=== PATIENT | male | born 1945 | race Caucasian/White ===

== ENCOUNTER 2018-09-17 20:53 | Observation (INO) | payer OTHER, MEDICARE, SELFPAY ==
[2018-09-17 20:55] VITALS: BP 232/93; PULSE 55; RESP 16; TEMP 36.6; O2SAT 99; BMI 35.4
--- NOTE | 2018-09-17 21:29 | EKG12_ITS ---
Test Reason : Blood Pressure : / mmHG Vent. Rate : 056 BPM Atrial Rate : 056 BPM P-R Int : 218 ms QRS Dur : 098 ms QT Int : 424 ms P-R-T Axes : 028 002 027 degrees QTc Int : 409 ms Sinus bradycardia with 1st degree A-V block Otherwise normal ECG Confirmed by YIMI GOLD ([id number]), editor managing newspaper ISAIAH SUAZO ([id number]) on 09/18/2018 2:30:06 PM Referred By: Zhang Luo Confirmed By:YIMI GOLD
--- NOTE | 2018-09-17 21:40 | RAD_ITS ---
STUDY: X-RAY CHEST REASON FOR EXAM: Male, 73 years old. Hypertension TECHNIQUE: PA and lateral views of the chest. COMPARISON: None. FINDINGS: There is elevation of the right hemidiaphragm. There is minimal right lower lobe atelectasis. There is no demonstrated pleural abnormality. Normal size heart. Normal mediastinum and margarita. Normal visualized pulmonary arteries. Normal visualized aortic arch and descending thoracic aorta. There are diffuse degenerative changes of the visualized thoracic spine. Normal visualized ribs, clavicles, and shoulders. There is no demonstrated abnormality of the visualized soft tissue structures of the upper abdomen. RAD/Chest PA and Lateral IMPRESSION: Elevation of the right hemidiaphragm. Minimal right lower lobe atelectasis. Degenerative change. Electronically Signed: Danyell Gonzalez MD at 21:56 EDT Tel , Service support ,
[2018-09-17 21:52] LABS: Absolute Lymphocyte Count 2.14 X10^3/uL (0.83-4.51); Absolute Neutrophil Count 3.9 X10^3/uL (2.0-7.7); Basophil# 0.05 X10^3/uL; Basophil% 0.7 % (0-1); Eosinophil# 0.21 X10^3/uL; Eosinophils% 3.1 % (0-5); Hematocrit 47.9 % (40-54); Lymphocyte # 2.14 X10^3/ul (4.0); Lymphocyte % 31.3 % (19-41); Mean Corp Hgb Conc 33.4 g/dL (32-36); Mean Corpuscular Volume 92.8 fL (80-94); Mean Platelet Vol. 12.6 fl (6.2-12.0); Monocyte# 0.55 X10^3/uL; Monocyte% 8.1 % (0-10); NRBC Flagged by Analyzer 0 % (0-5); Neutrophil # 3.86 X10^3/uL (2.7-7.7); Neutrophil % 56.5 % (47-70); Platelet Count 180 K/mm3 (150-450); RBC Distribution Width CV 13.2 % (11.6-14.6); Red Blood Count 5.16 M/mm3 (4.6-6.2); White Blood Count 6.8 K/mm3 (4.4-11.0)
[2018-09-17 22:02] VITALS: BP 178/89; PULSE 56; RESP 18; O2SAT 94
[2018-09-17 22:20] LABS: Anion Gap 2 (5-15); BUN 15 mg/dL (7-18); Calcium,Total 8.7 mg/dL (8.5-10.1); Chloride 110 mmol/L (98-107); Creatinine, Serum 1.36 mg/dL (0.70-1.30); EST Glomerular Filtration Rate 55 mL/min (>60); Est Glom Filt Rate - Afr Amer 66 mL/min (>60); Estimated Creatinine Clearance 49.82 ml/min; Glucose 108 mg/dL (74-106); Sodium Level 142 mmol/L (136-145)
[2018-09-17 22:32] VITALS: BP 198/90; PULSE 54; RESP 16; O2SAT 98
[2018-09-17] MEDS: cloNIDine HCl 0.1 MG Tablet PO (22:49)
--- NOTE | 2018-09-17 22:56 | ED.DCSUM_ITS ---
- ER Visit Summary Date of Service: 09/17/18 Chief Complaint: Hypertension History of Present Illness: The patient is a 73 M who presents with elevated blood pressure began today. Patient states his blood pressures been getting progressively worse throughout the day today. Patient saw his primary care kamini christy at the [facility] today added metoprolol to his losartan. Patient states he took a dose of metoprolol which did not help with his blood pressure. Patient admits to a headache. Patient states he has been feeling flushed. Patient admits to an episode of visual changes where he saw wavy line in his vision. Patient states this resolved after a few seconds. Patient denies any chest pain or shortness of breath. Patient denies any nausea or vomiting. Physical Examination: Vital signs are stable except for an elevated blood pressure of 232/93. Patient is afebrile. Patient is in no acute distress. Oral mucosa is pink and moist. Neck is supple. Trachea is midline. There is no JVD noted. Heart was regular rate and rhythm. Lungs are clear and equal bilateral. Abdomen is soft. Bowel sounds are normal. There is no tenderness. There is no guarding noted. Skin is warm dry. Cranial nerves II through XII are intact. There are no focal motor or sensory deficits noted. The remaining physical exam is within normal limits. Test Results: EKG showed normal sinus rhythm with a rate of 56. There are no acute ST or T wave changes. CBC was normal. Basic metabolic profile shows slightly elevated creatinine of 1.36. There are no prior values to compare with. Troponin was normal. Emergency Department Course and Treatment: Patient was given a dose of labetalol here. Patient's blood pressure improved to 170 systolic but then began to increase back to 190 systolic. Patient was given a dose of clonidine here. Patient's blood pressure after first dose of clonidine was 188/87. Patient was given a repeat dose of clonidine. Case was discussed with the hospitalist. Patient would prefer to be admitted here to [facility]. Disposition: Admit to hospital Impression: Hypertensive urgency This note was generated with [employer] dictation software. It may contain incorrect words, spelling, and punctuation that were not noted in review of the chart prior to signing ED Disposition - Plan for ED Patient: Disposition: Acute Care Hospital [facility] Diagnosis: Hypertensive urgency Referrals: [facility] Doctor,Out of [NON-STAFF] -
[2018-09-17 23:08] VITALS: BP 184/88; PULSE 54; RESP 16; O2SAT 98
[2018-09-17 23:19] VITALS: BP 209/93; PULSE 58; RESP 19; O2SAT 97
[2018-09-17 23:36] VITALS: BP 192/88; PULSE 51; RESP 16; O2SAT 95
--- NOTE | 2018-09-17 23:58 | PCM.HP.STD ---
Problem List (1) Hypertensive urgency Status: Acute History of Present Illness Date of Admission: 09/17/18 Chief Complaint: high blood pressure readings The patient is a 73 year old M with a significant history of hypertension who presented to the emergency department because of high blood pressure readings. His blood pressure while visiting his sister was 210/106. This was on the same day of presentation. And on the same day of presentation he went to his PCPs office for a regular visit. Because his blood pressure was elevated, metoprolol 25 mg p.o. twice a day was added to his regimen of Cozaar 100 mg daily. Reportedly he took his Cozaar 100 mg daily on the day of presentation; and metoprolol 25 mg twice daily on the same day when the medication was prescribed and that is on the same day of presentation. At the emergency department his initial blood pressure was 232/93. He was given labetalol that brought his blood pressure to 178/89. His systolic blood pressure later on went into the 200s for which reason he was given clonidine that brought his systolic blood pressure in the 180s only for his systolic blood pressure to rise up again into the 200s. Patient reports a transient headache and transient vision changes where he was seeing wavy lines. He thinks that his elevated blood pressure may be related to stress from his passing. Importantly his passed about 2 weeks ago. Past Medical History Medical History: Medical History (Last Updated 09/18/18 @ 00:37 by Zhang Luo MD) HTN (hypertension) I10 Allergies No Known Allergies Allergy (Verified 09/17/18 20:56) Home Medications: Ambulatory Orders Medication Instructions Recorded Losartan Potassium 100 mg PO DAILY 09/17/18 Metoprolol Tartrate 25 mg PO BID 09/17/18 Surgical History: no surgical history Lives: Alone Smoking Status: Former smoker Alcohol: None Review of Systems Constitutional: Denies: Chills, Fever, Weight Change HEENT: Reports: Head Aches. Denies: Sinus Congestion, Sinus Drainage Cardiovascular: Denies: Chest Pain, Palpitations Respiratory: Denies: Cough, Shortness of breath at rest, Sputum production Gastrointestinal: Denies: Abdominal Pain, Nausea, Vomiting Genitourinary: Denies: Dysuria Musculoskeletal: Denies: Joint Pain, Joint Tenderness Skin: Denies: Rash, Wounds Neurological: Reports: Blurred vision, Headaches. Denies: Focal weakness, Numbness, Tingling Psychiatric: Denies: Anxiety, Depression, Homicidal Ideations, Suicidal Ideations Hematologic/ Lymphatic: Denies: Easy Bruising, Easy Bleeding VTE Information - Inpt Only VTE Present on Admission: No VTE Mechan Device Prophylaxis: None VTE Pharm Prophylaxis ordered?: Yes Patient Problems: Active and Suspected Problems Hypertensive urgency (Acute) - Physical Exam General: Alert, Oriented x3, Cooperative HEENT: Atraumatic, PERRLA, EOMI, Normocephalic Neck: Supple, No JVD, Negative Carotid Bruits Lungs: Clear to auscultation, Normal air movement, No rales Cardiovascular: Normal S1, Normal S2, Bradycardic Abdomen: Bowel Sounds Present, Soft, Non Tender Extremities: No edema, Capillary Refill Less than 3 Seconds Skin: No rashes, No breakdown Musculoskeletal: No Tenderness to Palpation of Joints or Extremities Neurological: Cranial nerves II-XII grossly intact Psych/Mental Status: Anxious Vital Signs Temp Pulse Resp BP Pulse Ox 97.9 F 51 L 16 192/88 H 95 09/17/18 20:55 09/17/18 23:36 09/17/18 23:36 09/17/18 23:36 09/17/18 23:36 Oxygen Delivery Method Room Air Weight: 109 kg Body Mass Index (BMI) 35.4 Laboratory Tests Past 24 Hrs 09/17/18 09/17/18 21:25 21:25 WBC 6.8 RBC 5.16 Hgb 16.0 Hct 47.9 MCV 92.8 MCH 31.0 MCHC 33.4 RDW Std Deviation 45.0 H RDW Coeff of Levi 13.2 Plt Count 180 MPV 12.6 H Immature Gran % (Auto) 0.300 Neut % (Auto) 56.5 Lymph % (Auto) 31.3 [place] % (Auto) 8.1 Eos % (Auto) 3.1 Baso % (Auto) 0.7 Absolute Neuts (auto) 3.9 Absolute Lymphs (auto) 2.14 Nucleated RBC % 0 Sodium 142 Potassium 4.0 Chloride 110 H Carbon Dioxide 30.0 Anion Gap 2 L BUN 15 Creatinine 1.36 H Estim Creat Clear Calc 49.82 Est GFR (MDRD) Af Amer 66 Est GFR (MDRD) Non-Af 55 L BUN/Creatinine Ratio 11.0 Glucose 108 H Calcium 8.7 Troponin I < 0.015 Assessment/Plan All Active Problems Hypertensive urgency (Acute) The patient is a 73 year old M with a significant history of hypertension who presented to the emergency department with severely elevated blood pressure readings consistent with hypertensive urgency. Hypertensive urgency Patient received labetalol IV at the emergency department. Also patient took 2 doses of metoprolol 25 mg on the same day of presentation. His heart rate was in the lower 50s at the ED. EKG showed sinus bradycardia. Also patient was given clonidine at the emergency department. His creatinine appears to be mildly elevated but there is no old records to compare with. We will continue Cozaar for now and trend BMP. Order to obtain medical records from the [place]. Will start patient on amlodipine 10 mg daily. Continue metoprolol 25 mg twice daily. Hydralazine IV as needed ordered. In the long-term patient may need diuretics when his creatinine is stable since he is already on 2 blood pressure medications. Trend blood pressures and adjust blood pressure medications. Troponins were negative. Tylenol as needed for headaches. Elevated creatinine Mild. Creatinine is 1.36. Of low of note patient has elevated BMI and does not look cachectic. Unclear whether this is chronic or acute. Trend. DVT prophylaxis Subcutaneous Lovenox ordered Code Visit OBSV E&M: 85460 Initial observation care L3
[2018-09-18] VITALS (8 sets, daily range): BP systolic 117–200; BP diastolic 57–95; PULSE 47–56; RESP 10–22; TEMP 36.4–36.7; O2SAT 94–97; BMI 34.7; BMI 34.8
[2018-09-18] MEDS: cloNIDine HCl 0.1 MG Tablet PO (00:04)
--- NOTE | 2018-09-18 00:21 | NURSING ---
TALKED TO BED CONTROL AT THE [facility] AND THEY TOOK PATIENTS INFORMATION AND SAID HE COULD BE ADMITTED HERE AND THEY WILL FOLLOW UP IN THE MORNING
[2018-09-18] MEDS: amLODIPine 10 MG Tablet PO (01:24)
[2018-09-18 06:22] LABS: Anion Gap 3 (5-15); BUN 17 mg/dL (7-18); BUN/Creat Ratio 12.8 RATIO (10-20); Calcium,Total 8.5 mg/dL (8.5-10.1); Chloride 110 mmol/L (98-107); Creatinine, Serum 1.33 mg/dL (0.70-1.30); EST Glomerular Filtration Rate 56 mL/min (>60); Est Glom Filt Rate - Afr Amer 68 mL/min (>60); Glucose 120 mg/dL (74-106); Sodium Level 141 mmol/L (136-145)
[2018-09-18] MEDS: Losartan Potassium 100 MG Tablet PO (10:03)
--- NOTE | 2018-09-18 11:31 | PCM.DC ---
- Discharge Diagnoses Current Active Problems: Current Active and Chronic Problems (Last Updated 09/18/18 @ 00:37 by Zhang Luo MD) Hypertensive urgency (Acute) You will use the following diet at home:: Cardiac Discharge Activity: Return to Normal Activity Call your doctor if you observe: Shortness of breath, Dizziness, Fainting spells, Chest pain Additional Instructions: You will need to check your blood pressure twice daily and document readings to report to primary care physician. If your blood pressure is 180 or greater, report this finding immediately to primary care provider. Allergies/Adverse Reactions: Allergies No Known Allergies Allergy (Verified 09/17/18 20:56) Medications to take at Discharge Losartan Potassium 100 mg PO DAILY 09/17/18 Amlodipine [Norvasc] 10 mg PO DAILY #30 tab 09/18/18 The following prescriptions were given: Amlodipine [Norvasc] 10 mg PO DAILY #30 tab Transmission Status: Pending to [facility] Primary Care Physician: [facility] Doctor,Out of [NON-STAFF] - Test Results: Test results from this visit will be discussed in further detail at your follow-up appointment, if applicable.
--- NOTE | 2018-09-18 12:08 | PCM.DC.SUM ---
<Kelsy Weems - Last Filed: 09/18/18 12:22> Discharge Date and Diagnosis Date of Admission: 09/17/18 Date of Discharge: 09/18/18 - Primary Discharge Diagnosis Active and Suspected Problems (Last Updated 09/18/18 @ 00:37 by Zhang Luo MD) 1. Hypertensive urgency 2. Presumed chronic kidney disease stage III 3. Obesity Hospital Course and Treatment Imaging Results: Diagnostic Data Chest X-Ray 09/17/18 21:40 IMPRESSION: Elevation of the right hemidiaphragm. Minimal right lower lobe atelectasis. Degenerative change. Electronically Signed: Danyell Gonzalez MD at 21:56 EDT Tel , Service support , Operations: None Procedures: None Summary of Care Provided: The patient is a 73 year old M admitted 09/17/2018 due to high blood pressure. 1. Hypertensive urgency-patient's blood pressure reported to be greater than 200 systolically while visiting his sister. He denies headache, chest pain, shortness of breath or vision changes. PCP started patient on metoprolol 25 for elevated blood pressure however blood pressure on repeat check remained greater than 200 systolically. [facility] reports he has had general work-up for high blood pressure by his primary care provider. [facility] however these were not received prior to discharge. If he has not had renal ultrasound or echocardiogram prior, recommend this at repeat follow-up with PCP. Metoprolol discontinued and patient started on amlodipine 10 mg daily. Blood pressure has remained within goal on amlodipine in addition to home losartan regimen. Troponin negative. EKG without ST-T changes. Instructed patient to check blood pressure twice daily at home, morning and night as well as if he has any symptoms. He is to document recordings and bring these to follow-up with primary care provider in 1 week. 2. Presumed chronic kidney disease stage III-creatinine 1.3, repeat labs the same following gentle hydration. Feel patient most likely has chronic kidney disease although do not have prior labs for comparison. Follow-up with primary care provider for further evaluation. 3. Obesity-encouraged diet lifestyle modifications. Patient seen and examined prior to discharge. Physical assessment as noted above. Patient is stable for discharge with follow up recommendations as noted above. This patient was seen by STEWART Leary under the supervision of Dr. Gonsalez. - Physical Exam General: Alert, Oriented x3, Cooperative HEENT: Atraumatic, PERRLA, EOMI, Normocephalic Neck: Supple, No JVD, Negative Carotid Bruits Lungs: Clear to auscultation, Normal air movement Cardiovascular: Regular rate, Regular Rhythm, Normal S1, Normal S2, No murmurs Abdomen: Bowel Sounds Present, Soft, Non Tender, Non-Distended Extremities: No clubbing, No cyanosis, No edema, Capillary Refill Less than 3 Seconds Skin: No rashes, No breakdown Musculoskeletal: No Tenderness to Palpation of Joints or Extremities Neurological: Cranial nerves II-XII grossly intact, Neuro grossly intact Psych/Mental Status: Normal Affect, Appropriate Vital Signs Temp Pulse Resp BP Pulse Ox 98.0 F 56 L 18 128/57 H 97 09/18/18 09:53 09/18/18 10:02 09/18/18 09:53 09/18/18 09:53 09/18/18 09:53 Oxygen Delivery Method Room Air Weight: 242 lb 8.136 oz Body Mass Index (BMI) 34.7 Intake and Output for Last 24 Hours 09/16/18 09/17/18 09/18/18 23:59 23:59 23:59 Intake Total 237 / 237 Balance 237 / 237 Laboratory Tests Past 24 Hrs 09/17/18 09/17/18 09/18/18 21:25 21:25 05:15 WBC 6.8 RBC 5.16 Hgb 16.0 Hct 47.9 MCV 92.8 MCH 31.0 MCHC 33.4 RDW Std Deviation 45.0 H RDW Coeff of Levi 13.2 Plt Count 180 MPV 12.6 H Immature Gran % (Auto) 0.300 Neut % (Auto) 56.5 Lymph % (Auto) 31.3 [place] % (Auto) 8.1 Eos % (Auto) 3.1 Baso % (Auto) 0.7 Absolute Neuts (auto) 3.9 Absolute Lymphs (auto) 2.14 Nucleated RBC % 0 Sodium 142 141 Potassium 4.0 4.0 Chloride 110 H 110 H Carbon Dioxide 30.0 28.0 Anion Gap 2 L 3 L BUN 15 17 Creatinine 1.36 H 1.33 H Estim Creat Clear Calc 49.82 52.60 Est GFR (MDRD) Af Amer 66 68 Est GFR (MDRD) Non-Af 55 L 56 L BUN/Creatinine Ratio 11.0 12.8 Glucose 108 H 120 H Calcium 8.7 8.5 Troponin I < 0.015 Discharge Diet: Low fat/ Low Cholesterol, 2000 mg Sodium Diet Discharge Activity: Return to Normal Activity Call your doctor if you observe: Shortness of breath, Dizziness, Fainting spells, Chest pain Home Medications: Medications to take at Discharge Losartan Potassium 100 mg PO DAILY 09/17/18 Amlodipine [Norvasc] 10 mg PO DAILY #30 tab 09/18/18 Following Prescrptions Were Given to Patient: Amlodipine [Norvasc] 10 mg PO DAILY #30 tab Transmission Status: Received by [facility] [facility] Primary Care Physician: Diego Hinojosa,Out of [NON-STAFF] - Please follow up with your Primary Care Physician in: 1 Week Disposition: Home Minutes spent on discharge:: 35 Patient Condition:: Stable Medical Necessity - Tobacco Use Smoking Status: Former smoker Tobacco Use: Cigarettes Meaningful Use Info Meaningful Use Diagnoses (Choose all that apply): None applicable <Ulises Gonsalez - Last Filed: 09/18/18 13:47> Hospital Course and Treatment Summary of Care Provided: The patient is a 73 year old M [] - Physical Exam Vital Signs Temp Pulse Resp BP Pulse Ox 98.0 F 56 L 18 128/57 H 97 09/18/18 09:53 09/18/18 10:02 09/18/18 09:53 09/18/18 09:53 09/18/18 09:53 Oxygen Delivery Method Room Air Weight: 242 lb 8.136 oz Body Mass Index (BMI) 34.7 Intake and Output for Last 24 Hours 09/16/18 09/17/18 09/18/18 23:59 23:59 23:59 Intake Total 837 / 837 Balance 837 / 837 Laboratory Tests Past 24 Hrs 09/17/18 09/17/18 09/18/18 21:25 21:25 05:15 WBC 6.8 RBC 5.16 Hgb 16.0 Hct 47.9 MCV 92.8 MCH 31.0 MCHC 33.4 RDW Std Deviation 45.0 H RDW Coeff of Levi 13.2 Plt Count 180 MPV 12.6 H Immature Gran % (Auto) 0.300 Neut % (Auto) 56.5 Lymph % (Auto) 31.3 [place] % (Auto) 8.1 Eos % (Auto) 3.1 Baso % (Auto) 0.7 Absolute Neuts (auto) 3.9 Absolute Lymphs (auto) 2.14 Nucleated RBC % 0 Sodium 142 141 Potassium 4.0 4.0 Chloride 110 H 110 H Carbon Dioxide 30.0 28.0 Anion Gap 2 L 3 L BUN 15 17 Creatinine 1.36 H 1.33 H Estim Creat Clear Calc 49.82 52.60 Est GFR (MDRD) Af Amer 66 68 Est GFR (MDRD) Non-Af 55 L 56 L BUN/Creatinine Ratio 11.0 12.8 Glucose 108 H 120 H Calcium 8.7 8.5 Troponin I < 0.015 Code Visit Addendum: Dr. Gonsalez I personally examined the patient and reviewed the chart. I agree with the above. 3-year-old male who present with hypertensive urgency. He normally runs in the 160 systolic however he went to his primary care doctor's office and was complaining of headaches he checked his blood pressure was elevated so they started him on metoprolol 25 mg p.o. twice daily which she took 2 doses of prior to presenting to the hospital. In the ER his blood pressure was above 200 and he was given a dose of labetalol, as well as 2 doses of clonidine. He states that he felt like the headaches began more when he took the metoprolol and therefore since his blood pressure was controlled today with labetalol and was given a dose of Norvasc, his metoprolol was discontinued. He will be discharged with outpatient follow-up with his PCP. He is to continue his losartan as well as the Norvasc. OBSV E&M: [id number] Observation care discharge
--- NOTE | 2018-09-18 15:01 | CASEMGMT ---
Updated clinicals faxed to [facility] transfer center at this time. Eduard LUKE CM
== END 2018-09-18 11:53 | disposition home or self-care (01) ==
LOC: ED 09-18 00:05 → PCU 09-18 01:20
PROVIDERS: Admitting Provider Hospitalist; Emergency Provider Emergency Medicine; Referring Provider Hospitalist; Visit Provider Family Medicine
DX: I16.0 Hypertensive urgency (principal); E66.9 Obesity, unspecified; Z68.34 Body mass index [BMI] 34.0-34.9, adult; Z71.3 Dietary counseling and surveillance; I10 Essential (primary) hypertension; Z79.899 Other long term (current) drug therapy; Z87.891 Personal history of nicotine dependence
CPT/HCPCS: 36415; 71046; 80048; 84484; 85025; 93005; 96374; 97802; 99218; 99285; A4216; G0378

== ENCOUNTER 2019-12-05 22:12 | Inpatient (IN) | payer OTHER, MEDICARE, SELFPAY ==
[2018-09-18 00:54] VITALS: BMI 34.7
[2019-12-05 22:23] VITALS: BP 143/82; PULSE 81; RESP 24; TEMP 38.2; O2SAT 91; BMI 34.6
[2019-12-05 22:35] VITALS: PULSE 78; RESP 23; O2SAT 94
[2019-12-05 22:41] VITALS: O2SAT 95
--- NOTE | 2019-12-05 22:44 | RAD_ITS ---
HISTORY: Increased shortness of breath, COVID. ADDITIONAL HISTORY: None provided. EXAMINATION/TECHNIQUE: XR Chest 1 View AP/PA Number of images including paperwork: 1 COMPARISON: 09/17/2018 FINDINGS: LUNGS AND PLEURA: Mild left mid to lower lung and left basilar opacities. Minimal basilar opacities with somewhat linear configuration also noted. Right hemidiaphragm elevation again seen. CARDIAC SILHOUETTE: Unremarkable. MEDIASTINUM AND JEN: Unremarkable. UPPER ABDOMEN: Unremarkable. SKELETON AND SOFT TISSUES: No acute skeletal findings. Degenerative changes. OTHER DEVICES AND HARDWARE: None. RAD/Chest 1 View (Portable) IMPRESSION: Mild bilateral atelectasis versus infiltrates. at 0005 Reported and signed by: Suzette Estrada MD Electronically Signed: Suzette Estrada MD at 0:05 EDT Tel , Service support ,
--- NOTE | 2019-12-05 22:53 | EKG12_ITS ---
Test Reason : SOB Blood Pressure : / mmHG Vent. Rate : 074 BPM Atrial Rate : 074 BPM P-R Int : 168 ms QRS Dur : 102 ms QT Int : 414 ms P-R-T Axes : 008 005 -07 degrees QTc Int : 459 ms Normal sinus rhythm Nonspecific T wave abnormality Confirmed by MARIO PAGE, TRISTIAN ([id number]), online editor ISAIAH SUAZO ([id number]) on 12/08/2019 11:35:08 AM Referred By: JAQUI Confirmed By:TRISTIAN MARTIN MD
--- NOTE | 2019-12-05 22:54 | ED.VIS.DYS ---
History of Present Illness Chief Complaint: Shortness of Breath Informant: Patient, EMS Onset: Yesterday Activity at onset: - - gradual Timing: Continuous Quality: - - short of breath Current Severity: Mild Maximum Severity: Moderate Worsened by: Coughing, Exertion Relieved by: Oxygen, Rest Associated Symptoms: Chills, Cough - [employer], Fever. Negative for: Ear pain, Rhinorrhea, Sore throat, Sweats Chest Pain: None Narrative: Patient is having cough and fevers starting 5 days ago, had an outpatient test positive for COVID-19. He lives at home. Started to get short of breath today. EMS picked him up from home and his oxygen levels were 88-89% on room air. He is not on home oxygen and has no history of heart or lung disease that he knows of. He has a shuffling gait at baseline, and according to EMS, family states he is at baseline there. There is been no syncopal episodes or other new symptoms. No chest pain. No leg pain or swelling. No history of DVT or PE. Also had a minor fall today and scraped the right side of his face in the process. No loss of consciousness, severe headache, or vomiting. Past Medical History - Allergies and Home Meds Allergies/Adverse Reactions: Allergies No Known Allergies Allergy (Verified 12/05/19 22:38) Primary Care Physician: Care Physician,No Primary [NON-STAFF] - Past Medical History: None Surgical History: no surgical history Smoking Status: Former smoker Review of Systems General: Reports: Chills, Fever, Malaise. Denies: Sweats Eyes: Denies: Visual changes - bilaterally, Diplopia ENT: Denies: Bilateral ear pain, Rhinorrhea, Sore throat Cardiovascular: Denies: Chest pain, Palpitations Respiratory: Reports: Dyspnea, Cough, Dyspnea on exertion. Denies: Sputum, Orthopnea Gastrointestinal: Denies: Abdominal pain, Nausea, Vomiting, Diarrhea, Melena, Hematochezia Genitourinary: Denies: Dysuria, Hematuria, Frequency Musculoskeletal: Reports: Back pain. Denies: Myalgias, Swelling, Extremity Pain Skin: Denies: Rash, Wounds Neurological: Reports: Headache - mild, occasional. Denies: Weakness, Numbness Physical Exam Vital Signs/Narrative: Vital Signs Temp Pulse Resp BP Pulse Ox 12/05/19 22:35 78 23 H 94 12/05/19 22:23 100.7 F H 81 24 H 143/82 H 91 Inital Vital Signs reviewed: Yes General: Well nourished, Well developed, No Acute Distress Head: Normocephalic, Trauma - Abrasions right side of face, minimal tenderness, no deformities/crepitance. Negative for: Tenderness Eyes: Perrl, EOMI ENT: Moist mucous membranes, No rhinorrhea Neck: Supple, Nontender, No lymphadenopathy Cardiovascular: Regular rate, Regular rhythm, No murmurs. Negative for: Tachycardia Respiratory: No distress, CTA bilaterally, Chest nontender Abdomen: Soft, Nontender, Nondistended, Normal bowel sounds Back: Nontender, Normal Inspection Extremities: Nontender, No edema. Negative for: Calf Tenderness Skin: Normal color, No rash, No Trauma Neurological: Alert, Oriented x3, Cranial nerves II-XII grossly intact, Normal Strength, Normal Sensation Psychological: Normal affect, Normal Mood Diagnostic/Tx/Re-eval Impressions Chest X-Ray 12/05/19 22:44 IMPRESSION: Mild bilateral atelectasis versus infiltrates. at 0005 Reported and signed by: Suzette Estrada MD Electronically Signed: Suzette Estrada MD at 0:05 EDT Tel , Service support , 12/05/19 22:44 CXR [Chest 1 View (Portable)] [RAD] Stat Laboratory Results 12/05/19 12/05/19 12/05/19 22:32 22:32 22:32 WBC 6.0 RBC 5.05 Hgb 15.8 Hct 46.6 MCV 92.3 MCH 31.3 MCHC 33.9 RDW Std Deviation 45.6 H RDW Coeff of Levi 13.5 Plt Count 134 L MPV 13.2 H Immature Gran % (Auto) 1.200 H Neut % (Auto) 79.0 H Lymph % (Auto) 13.8 L [place] % (Auto) 5.8 Eos % (Auto) 0.0 Baso % (Auto) 0.2 Absolute Neuts (auto) 4.8 Absolute Lymphs (auto) 0.83 Nucleated RBC % 0 Sodium 136 Potassium 3.8 Chloride 104 Carbon Dioxide 22.0 Anion Gap 10 BUN 23 H Creatinine 1.47 H Estim Creat Clear Calc 48.38 Est GFR (MDRD) Af Amer 61 Est GFR (MDRD) Non-Af 50 L BUN/Creatinine Ratio 15.6 Glucose 143 H Lactic Acid 1.2 Calcium 8.0 L Total Bilirubin 0.60 AST 43 H ALT 38 Alkaline Phosphatase 63 Troponin I < 0.015 Total Protein 7.8 Albumin 3.5 Globulin 4.3 H Albumin/Globulin Ratio 0.8 L - Rhythm Strip Rhythm Strip: Sinus Rhythm Rate: 74 Ectopy: None - EKG Initial EKG Interpretation: Sinus Rhythm, No Acute Injury Pattern Prior: Unchanged Treatment - Dyspnea: Oxygen Repeat Evaluation: Improved - Medical Decision Making Patient's fever was treated, and he was left on oxygen. He did not require any other specific treatments here but he was administered Decadron 6 mg given his oxygen requirement in context of COVID-19. His x-ray may show some early infiltrate on the left. Plan is for admission, he does not require ICU or mechanical ventilation at this time, he is on an oxygen nasal cannula. With regards to his injury, he has abrasions on his face, no symptoms of a severe traumatic brain injury, and I did not feel a CT was necessary. His GCS is 15, he is mentating well. ED Disposition - Plan for ED Patient: Disposition: [facility] Diagnosis: 2019 novel coronavirus disease (COVID-19), Hypoxemia Referrals: Care Physician,No Primary [NON-STAFF] -
[2019-12-05 23:02] VITALS: O2SAT 95
[2019-12-05 23:23] VITALS: BP 160/69; PULSE 70; RESP 20; TEMP 37.4; O2SAT 95
[2019-12-05 23:28] LABS: Absolute Lymphocyte Count 0.83 X10^3/uL (0.83-4.51); Absolute Neutrophil Count 4.8 X10^3/uL (2.0-7.7); Basophil# 0.01 X10^3/uL; Basophil% 0.2 % (0-1); Hematocrit 46.6 % (40-54); Hemoglobin 15.8 g/dL (13.0-16.5); Lymphocyte # 0.83 X10^3/ul (4.0); Lymphocyte % 13.8 % (19-41); Mean Corp Hgb Conc 33.9 g/dL (32-36); Mean Corpuscular Hgb 31.3 pg (27.0-32.0); Mean Corpuscular Volume 92.3 fL (80-94); Mean Platelet Vol. 13.2 fl (6.2-12.0); Monocyte# 0.35 X10^3/uL; Monocyte% 5.8 % (0-10); NRBC Flagged by Analyzer 0 % (0-5); Neutrophil # 4.75 X10^3/uL (2.7-7.7); Platelet Count 134 K/mm3 (150-450); RBC Distribution Width CV 13.5 % (11.6-14.6); RBC Distribution Width SD 45.6 fl (35.1-43.9); Red Blood Count 5.05 M/mm3 (4.6-6.2)
[2019-12-05 23:36] LABS: ALB/GLOB Ratio 0.8 RATIO (0.9-2.4); AST(SGOT) 43 U/L (15-37); Alanine Aminotransfer ALT/SGPT 38 U/L (16-61); Albumin, Serum 3.5 g/dL (3.2-5.0); Alkaline Phosphatase 63 U/L (45-117); Anion Gap 10 (5-15); BUN 23 mg/dL (7-18); BUN/Creat Ratio 15.6 RATIO (10-20); Chloride 104 mmol/L (98-107); Creatinine, Serum 1.47 mg/dL (0.70-1.30); EST Glomerular Filtration Rate 50 mL/min (>60); Est Glom Filt Rate - Afr Amer 61 mL/min (>60); Estimated Creatinine Clearance 48.38 ml/min; Globulin 4.3 g/dL (2.2-4.2); Glucose 143 mg/dL (74-106); Potassium 3.8 mmol/L (3.5-5.1); Protein, Total 7.8 g/dL (6.4-8.2); Sodium Level 136 mmol/L (136-145)
[2019-12-05 23:38] LABS: Lactic Acid 1.2 mmol/L (0.4-1.9)
[2019-12-06] VITALS (12 sets, daily range): BP systolic 127–161; BP diastolic 69–77; PULSE 62–86; RESP 18–22; TEMP 36.7–37.8; O2SAT 92–97; BMI 33.0; BMI 33.1
[2019-12-06] MEDS: Acetaminophen 325 MG Tablet 650 MG PO ×2 (00:01→09:33)
[2019-12-06] MEDS: dexAMETHasone 4 MG/ML Vial 6 MG IV (00:43)
--- NOTE | 2019-12-06 02:33 | PCM.HP.STD ---
Problem List (1) Stage III chronic kidney disease Status: Chronic (2) Acute hypoxic respiratory insufficiency Status: Acute (3) Hypertension Status: Chronic (4) 2019 novel coronavirus disease (COVID-19) Status: Acute History of Present Illness Date of Admission: 12/06/19 Chief Complaint: Shortness of breath. The patient is a 74 year old M with past medical history as mentioned above presented to the emergency room because of shortness of breath. Patient was diagnosed with COVID-19 5 days ago and he has been doing okay until yesterday morning when he started having increasing shortness of breath, but is with minimal activity, aggravated by any type of activity, associated with mild dry cough as well as subjective fever and no relieving factor. Squad mentioned that his pulse ox was 88 to 89% on room air upon arrival to his house. He denies fever or chills. He had COVID-19 done at urgent care 5 days ago which came back positive. Patient lives alone and he denied recent travel or sick contacts. He denied chest pain, palpitation, dizziness or lightheadedness. In the emergency department, he had spike of low-grade fever, blood pressure was slight elevated but improved, he required oxygen of up to 4 L. His routine blood work was remarkable for BUN of 23, creatinine 1.47. LFT was unremarkable. Troponin was negative. EKG revealed normal sinus rhythm without evidence of acute segment changes or cardiac arrhythmias. Chest x-ray revealed no obvious infiltrate, possible atelectasis. He is being admitted for COVID-19 and acute hypoxic respiratory insufficiency. Past Medical History Past Medical History (Chronic Problems): Chronic Problems (Last Updated 09/18/18 @ 00:[address] Zhang Luo MD) Stage III chronic kidney disease (Chronic) Hypertension (Chronic) Medical History: Medical History (Last Updated 09/18/18 @ 00:[address] Zhang Luo MD) HTN (hypertension) I10 Allergies No Known Allergies Allergy (Verified 12/05/19 22:38) Home Medications: Ambulatory Orders Medication Instructions Recorded Losartan Potassium 100 mg PO DAILY 09/17/18 Amlodipine [Norvasc] 10 mg PO DAILY #30 tab 09/18/18 Surgical History: no surgical history Lives: Alone Smoking Status: Former smoker Alcohol: None Drugs: None - *Family History Maternal History Items: No pertinent history Paternal History Items: No pertinent history Review of Systems Constitutional: Reports: Fever, Weakness. Denies: Anorexia, Chills Eyes: Denies: Blurred vision, Double vision, Drainage, Redness HEENT: Denies: Difficulty Hearing, Ear Pain, Eye Pain, Nasal Congestion, Sore Throat Cardiovascular: Denies: Chest Pain, Chest Pressure, Heaviness, Light Headedness, Palpitations, Syncope Respiratory: Reports: Cough, Shortness of breath upon exertion. Denies: Sputum production, Wheezing Gastrointestinal: Denies: Abdominal Pain, Constipation, Diarrhea, Nausea, Vomiting Genitourinary: Denies: Dysuria, Frequency, Hematuria Musculoskeletal: Denies: Arm Pain, Back Pain, Foot Pain Skin: Denies: Dryness, Rash Neurological: Denies: Balance problems, Blurred vision, Double vision, Change in Speech, Confusion, Headaches, Numbness Psychiatric: Denies: Anxiety, Depression Endocrine: Denies: Change in Body Habitus, Polydipsia, Polyuria VTE Information - Inpt Only VTE Present on Admission: No VTE Mechan Device Prophylaxis: None VTE Pharm Prophylaxis ordered?: Yes Patient Problems: Active and Suspected Problems (Last Updated 09/18/18 @ 00:[address] Zhang Luo MD) 2019 novel coronavirus disease (COVID-19) (Acute) - Physical Exam Vitals/I&O's: Vital Signs Temp Pulse Resp BP Pulse Ox 98.5 F 70 20 H 132/72 H 96 12/06/19 01:23 12/06/19 01:23 12/06/19 01:23 12/06/19 01:23 12/06/19 01:23 Oxygen Flow Rate (L/min) 4 Oxygen Delivery Method Nasal Cannula Weight: 248 lb 7.375 oz Body Mass Index (BMI) 34.6 General: Alert, Oriented x3, Cooperative, No apparent distress, - HEENT: Atraumatic, PERRLA, EOMI, Normocephalic Oral: Moist Mucosa, No Gingival or Mucosal Lesions/ Ulcerations Neck: Supple, No JVD, Negative Carotid Bruits, Trachea Midline, Thyroid Normal Size and Texture Lungs: Clear to auscultation, Normal air movement, No rhonchi, No wheeze, No rales, Diminished Cardiovascular: Regular rate, Regular Rhythm, Normal S1, Normal S2, PMI Normal Abdomen: Bowel Sounds Present, Soft, Non Tender, Non-Distended, No Hepato-splenomegaly, Obese Extremities: No clubbing, No cyanosis, No edema Skin: No rashes, No breakdown Lymphatic: No Cervical, Supraclavicular, or Inguinal Adenopathy Neurological: Cranial nerves II-XII grossly intact, Motor Exam 5/5 strength throughout Psych/Mental Status: Normal Affect, Appropriate, Alert and oriented to time, place, person, mood and affect Laboratory Results 12/05/19 22:32: WBC 6.0, RBC 5.05, Hgb 15.8, Hct 46.6, MCV 92.3, MCH 31.3, MCHC 33.9, RDW Std Deviation 45.6 H, RDW Coeff of Levi 13.5, Plt Count 134 L, MPV 13.2 H, Immature Gran % (Auto) 1.200 H, Neut % (Auto) 79.0 H, Lymph % (Auto) 13.8 L, [place] % (Auto) 5.8, Eos % (Auto) 0.0, Baso % (Auto) 0.2, Absolute Neuts (auto) 4.8, Absolute Lymphs (auto) 0.83, Nucleated RBC % 0 12/05/19 22:32: Sodium 136, Potassium 3.8, Chloride 104, Carbon Dioxide 22.0, Anion Gap 10, BUN 23 H, Creatinine 1.47 H, Estim Creat Clear Calc 48.38, Est GFR (MDRD) Af Amer 61, Est GFR (MDRD) Non-Af 50 L, BUN/Creatinine Ratio 15.6, Glucose 143 H, Calcium 8.0 L, Total Bilirubin 0.60, AST 43 H, ALT 38, Alkaline Phosphatase 63, Troponin I < 0.015, Total Protein 7.8, Albumin 3.5, Globulin 4.3 H, Albumin/Globulin Ratio 0.8 L 12/05/19 22:32: Lactic Acid 1.2 Clinical Impression(s) from Imaging Studies Chest X-Ray 12/05/19 22:44 IMPRESSION: Mild bilateral atelectasis versus infiltrates. at 0005 Reported and signed by: Suzette Estrada MD Electronically Signed: Suzette Estrada MD at 0:05 EDT Tel , Service support , Assessment/Plan All Active Problems (Last Updated 09/18/18 @ 00:[address] Zhang Luo MD) Acute hypoxic respiratory insufficiency (Acute) 2019 novel coronavirus disease (COVID-19) (Acute) This is a 74 years old male patient presented to the emergency room because of shortness of breath, subjective fever and malaise, he was tested positive for COVID-19 5 days ago and he is being admitted for treatment. #1 acute COVID-19: Chest x-ray revealed no obvious infiltrate. No evidence of sepsis or severe sepsis. Currently, patient is on 4 L of oxygen. [facility] precautions, check BNP, CPK, D-dimer, fibrinogen, LDH, procalcitonin, start IV Decadron, pulmonology consult, infectious disease consult, repeat CBC and BMP tomorrow morning, albuterol inhaler as needed, incentive spirometer, PT OT evaluation and treatment. #2 acute hypoxic respiratory sufficiency: Secondary to #1. Patient is not on home oxygen. Currently, he is on 4 L. Plan as above, oxygen by nasal cannula, incentive spirometer. #3 hypertension: Blood pressure stable, continue Norvasc and losartan, IV hydralazine as needed. #4 stage III chronic kidney disease: Over the last year, creatinine has been around 1.3. Admission creatinine 1.47, close to baseline. Plan to monitor. #5 CODE STATUS: Patient is not able to decide if he wants to be intubated and on mechanical ventilation or not. He was requested to to think about it. #7 DVT prophylaxis: Subcu Lovenox. This note was generated with [employer] dictation software. It may contain incorrect words, spelling, and punctuation that were not noted in checking the note before signing. Inpatient E&M: 28863 Init Hosp L2
[2019-12-06 04:55] LABS: Procalcitonin 0.08 ng/mL (0.00-0.09)
[2019-12-06 04:58] LABS: CPK Total, Creatine Kinase 679 U/L (39-308); LDH 235 U/L (87-241)
[2019-12-06 05:14] LABS: Fibrinogen 501 mg/dl (203-444)
[2019-12-06 05:28] LABS: D-Dimer Quantitative (DVT/PE) 0.74 FEU/ug/m (0.27-0.49)
--- NOTE | 2019-12-06 06:19 | NURSING ---
Pt's daughter (Bibi Irvin [phone]) called in for update and to express concern about pt's fall at home. She states after fall he was confused and vomited. She states not acting like himself and unable to walk. Upon admit to floor pt is A&Ox3, able to answer questions appropriately. Was able to relay event of falling at home and pointed out the cut on R nondenominational that resulted. Pt has PT/OT orders in. [employer] aware of daughter's concerns via consult. No changes in mental status at this point
[2019-12-06] MEDS: dexAMETHasone 10 MG/ML Vial 6 MG IV (09:23)
[2019-12-06] MEDS: Losartan Potassium 100 MG Tablet PO (09:23)
[2019-12-06] MEDS: amLODIPine 10 MG Tablet PO (09:24)
[2019-12-06] MEDS: 0.9% Saline Lock 10 ML Syringe IV (09:24)
[2019-12-06] MEDS: Enoxaparin 30 MG/0.3 ML Syringe SC (09:24)
--- NOTE | 2019-12-06 10:49 | PN_ITS ---
Patient Problems: Active and Suspected Problems (Last Updated 09/18/18 @ 00:[address] Zhang Luo MD) Acute hypoxic respiratory insufficiency (Acute) 2019 novel coronavirus disease (COVID-19) (Acute) Subjective: Patient seen and examined. Admitted with a complaint of shortness of breath. He was diagnosed with covert 19 infection on 12/01/2019 and had been doing okay at home until his shortness of breath worsened so he came into the ED. He has no complaints this morning. He is on 2 L of oxygen, down from 4 L of oxygen on admission. He denies having a cough or chest pain, palpitations, dizziness, nausea or vomiting. He feels her shortness of breath is getting better. Review of systems otherwise negative. He has remained hemodynamically stable. Vitals/I&O's: Vital Signs Temp Pulse Resp BP Pulse Ox 98.5 F 65 20 H 127/75 H 97 12/06/19 09:18 12/06/19 09:18 12/06/19 09:18 12/06/19 09:18 12/06/19 09:18 Oxygen Flow Rate (L/min) 2 Oxygen Delivery Method Nasal Cannula Weight: 236 lb 5.369 oz Body Mass Index (BMI) 33.0 Intake and Output for Last 24 Hours 12/04/19 12/05/19 12/06/19 23:59 23:59 23:59 Intake Total 150 / 150 Balance 150 / 150 General: Alert, Oriented x3, Cooperative, No apparent distress HEENT: Atraumatic, PERRLA, EOMI, Normocephalic Oral: Moist Mucosa Neck: Supple, No JVD, Negative Carotid Bruits Lungs: Clear to auscultation, Normal air movement, - - on 2L of oxygen by nasal canula Cardiovascular: Regular rate, No murmurs Abdomen: Bowel Sounds Present, Soft, Non Tender Extremities: No edema, Capillary Refill Less than 3 Seconds Skin: No rashes, No breakdown Musculoskeletal: No Tenderness to Palpation of Joints or Extremities Lymphatic: No Cervical, Supraclavicular, or Inguinal Adenopathy Neurological: Cranial nerves II-XII grossly intact, Neuro grossly intact, Motor Exam 5/5 strength throughout Psych/Mental Status: Normal Affect, Appropriate, Alert and oriented to time, stevie ce, person, mood and affect Laboratory Results 12/05/19 22:32: WBC 6.0, RBC 5.05, Hgb 15.8, Hct 46.6, MCV 92.3, MCH 31.3, MCHC 33.9, RDW Std Deviation 45.6 H, RDW Coeff of Levi 13.5, Plt Count 134 L, MPV 13.2 H, Immature Gran % (Auto) 1.200 H, Neut % (Auto) 79.0 H, Lymph % (Auto) 13.8 L, [place] % (Auto) 5.8, Eos % (Auto) 0.0, Baso % (Auto) 0.2, Absolute Neuts (auto) 4.8, Absolute Lymphs (auto) 0.83, Nucleated RBC % 0 12/05/19 22:32: Sodium 136, Potassium 3.8, Chloride 104, Carbon Dioxide 22.0, Anion Gap 10, BUN 23 H, Creatinine 1.47 H, Estim Creat Clear Calc 48.38, Est GFR (MDRD) Af Amer 61, Est GFR (MDRD) Non-Af 50 L, BUN/Creatinine Ratio 15.6, Glucose 143 H, Calcium 8.0 L, Total Bilirubin 0.60, AST 43 H, ALT 38, Alkaline Phosphatase 63, Troponin I < 0.015, Total Protein 7.8, Albumin 3.5, Globulin 4.3 H, Albumin/Globulin Ratio 0.8 L 12/05/19 22:32: Lactic Acid 1.2 12/05/19 22:32: PT 13.0, INR 1.0, Fibrinogen 501 H, D-Dimer Quant (PE/DVT) 0.74 H* 12/05/19 22:32: Lactate Dehydrogenase 235, Total Creatine Kinase 679 H, C-React Prot Ext Range 44.70 H 12/05/19 22:32: B-Natriuretic Peptide 6.0 12/05/19 22:32: Procalcitonin 0.08 Diagnostic Data Chest X-Ray 12/05/19 22:44 IMPRESSION: Mild bilateral atelectasis versus infiltrates. at 0005 Reported and signed by: Suzette Estrada MD Electronically Signed: Suzette Estrada MD at 0:05 EDT Tel , Service support , Current Medications Acetaminophen (Acetaminophen 325 Mg Tablet) 650 mg PO Q6H PRN PRN PRN Reason: Pain Score 1-10/Temp > 100.7 F Last Admin: 12/06/19 09:33 Dose: 650 mg Documented by: Albuterol Sulfate (Albuterol Ih 8.5 Gm (Proair) Inhaler (200 Puffs)) 2 puff INHALATION Q4H PRN PRN PRN Reason: Shortness of breath, wheezing Amlodipine Besylate (Amlodipine 10 Mg Tablet) 10 mg PO DAILY [facility] Last Admin: 12/06/19 09:24 Dose: 10 mg Documented by: Dexamethasone Sodium Phosphate (Dexamethasone 10 Mg/Ml Vial) 6 mg IV DAILY [facility] Last Admin: 12/06/19 09:23 Dose: 6 mg Documented by: Enoxaparin Sodium (Enoxaparin 30 Mg/0.3 Ml Syringe) 30 mg SC DAILY [facility] Last Admin: 12/06/19 09:24 Dose: 30 mg Documented by: Hydralazine HCl (Hydralazine 20 Mg/Ml Vial) 10 mg IV Q6H PRN PRN PRN Reason: for SBP>160 Sodium Chloride () 250 mls @ 15 mls/hr IV .[id number] PRN PRN Reason: Saline Flush Sodium Chloride () 250 mls @ 15 mls/hr IV .[id number] PRN PRN Reason: Additional IVPB Infusion Losartan Potassium (Losartan Potassium 100 Mg Tablet) 100 mg PO DAILY [facility] Last Admin: 12/06/19 09:23 Dose: 100 mg Documented by: Ondansetron HCl (Ondansetron 4 Mg/2 Ml Vial) 4 mg IV Q8H PRN PRN PRN Reason: NAUSEA/VOMITING Senna/Docusate Sodium (Senna/Docusate Sodium 1 Tablet) 2 tablet PO BID PRN PRN PRN Reason: Constipation Sodium Chloride (0.9% Saline Lock 10 Ml Syringe) 10 - 40 ml IV UD PRN PRN Reason: SALINE FLUSH Last Admin: 12/06/19 09:24 Dose: 10 ml Documented by: Zolpidem Tartrate (Zolpidem Tartrate 5 Mg Tablet) 5 mg PO QHS PRN PRN PRN Reason: INSOMNIA STROKE Vital Signs/Narrative: Vital Signs Temp Pulse Resp BP Pulse Ox 12/06/19 09:18 98.5 F 65 20 H 127/75 H 97 Medical Necessity - Tobacco Use Smoking Status: Former smoker Assessment/Plan All Active Problems (Last Updated 09/18/18 @ 00:[address] Zhang Luo MD) Acute hypoxic respiratory insufficiency (Acute) 2019 novel coronavirus disease (COVID-19) (Acute) # COVID 19 infection * Patient is feeling better and is down to 2 L of oxygen from 4 L at time of admission. * On IV Decadron. Pulmonology consulted. Infectious disease consulted. * Breathing treatments with bronchodilators. * Titrate oxygen to maintain saturation above 90%. * Acute hypoxic respiratory insufficiency due to COVID-19 infection: As above #Hypertension: On Norvasc and losartan. #Stage III kidney disease: Creatinine was 1.47 on admission. Will monitor. DVT prophylaxis: Lovenox CODE STATUS: patient was undecided about CODE STATUS on admission and wants more time to think about it. Inpatient E&M: 75040 Subs Hosp L2
--- NOTE | 2019-12-06 12:54 | CM.UR ---
Addendum entered by Linda Jose 12/06/19 13:11: Attempted to call patient at this time to perform RN CCM assessment however he was in the middle of eating. Agreed to call him back in a little bit. Lavern Jose RN,CCM. Original Note: Attempted to contact [place] transfer center x2 today however remained on hold for 20-25 minutes both times. Faxed clinical to the transfer center at both fax numbers that I have on hand: [phone] and [phone] at this time. Lavern Jose RN, CCM.
--- NOTE | 2019-12-06 14:19 | CM.UR ---
TI TAVERA Assessment: This RN CM contacted patient via telephone (d/t + Covid) for initial transition planning/care coordination assessment. TI TAVERA introduced self and role at [facility]. Patient willing to participate in assessment and is able to answer all questions appropriately. Patient wishes to discharge home. Patient denies needs or concerns at this time. CM to follow for discharge planning needs that may arise. PCP: doesn't really have one. went to [facility] but hasn't gone in a while. Specialists: States mostly goes to [facility] clinic. This is a mental health clinic. Preferred Pharmacy: [facility]. only gets bp medication from [place]. Insurance: [facility] and [facility] Prescription Benefit: yes Living Will/HPOA: none LNOK: son, Marino Living Arrangements: Lives in 2 story home alone. States he has a first floor set up. States he has 4 steps in the front and 5 in the back with railings on both. Transportation: self DME: Patient states he has a built in chair in shower, a high toilet and grab bars in bathroom. SNF/HHC: Denies every being in both. He denies any needs at this time. States he usually does fine once he gets home. Also discussed possibility of home o2 needed. Asked if he preferred to use the [facility] or someone local if needed o2. Vet states that probably someone local. Encouraged him to use the [facility] for any equipment as there is usually not any copay for equipment. Disposition Plan: Patient to discharge home. Possibly Home O2. Lavern Jose RN, CCM.
[2019-12-07] VITALS (19 sets, daily range): BP systolic 118–169; BP diastolic 62–82; PULSE 62–81; RESP 16–20; TEMP 36.8–38.3; O2SAT 92–98
[2019-12-07] MEDS: Acetaminophen 325 MG Tablet 650 MG PO (02:12)
--- NOTE | 2019-12-07 06:07 | PCM.CONS.PUL ---
Reason for Consult Date of Consultation: 12/07/19 Reason for Consultation: Covid pneumonia History of Present Illness: The patient is a 74-year-old male, with a history as outlined below, who presented to the emergency department on December 04 with complaints of shortness of breath, cough and fevers. The patient's symptoms have been present for greater than 1 weeks duration, prompting his Covid test to be completed on November 30, which was positive. The patient denies any known sick contact exposures. On presentation to the emergency department, the patient was initially noted to have a low-grade fever but was hemodynamically stable. Laboratory evaluation revealed a normal white blood cell count. D-dimer was only elevated to 0.74. Chemistry profile was notable for a creatinine of 1.47. Lactate was within normal limits. Troponin was negative. BNP was unremarkable. Chest x-ray revealed an elevated right hemidiaphragm with possible left basilar opacities. The patient was placed on Decadron and subsequently admitted to the Covid cohort unit for further management. Past Medical History Past Medical History (Chronic Problems): Chronic Problems (Last Updated 09/18/18 @ 00:[address] Zhang Luo MD) Stage III chronic kidney disease (Chronic) Hypertension (Chronic) Medical History: Medical History (Last Updated 09/18/18 @ 00:[address] Zhang Lou MD) HTN (hypertension) I10 Allergies No Known Allergies Allergy (Verified 12/05/19 22:38) Home Medications: Ambulatory Orders Medication Instructions Recorded Losartan Potassium 100 mg PO DAILY 09/17/18 Amlodipine [Norvasc] 10 mg PO DAILY 12/06/19 Surgical History: no surgical history Lives: Alone Smoking Status: Former smoker Alcohol: None Drugs: None - *Family History Maternal History Items: No pertinent history Paternal History Items: No pertinent history Review of Systems Constitutional: Reports: Chills, Fever, Fatigue Eyes: Denies: Blurred vision, Double vision HEENT: Denies: Head Aches, Sinus Congestion, Sinus Drainage Cardiovascular: Denies: Chest Pain, Palpitations Respiratory: Reports: Cough, Shortness of Breath Gastrointestinal: Denies: Abdominal Pain, Nausea, Vomiting Genitourinary: Denies: Dysuria Musculoskeletal: Denies: Joint Pain, Joint Tenderness Skin: Denies: Rash, Wounds Neurological: Denies: Numbness, Tingling, Focal weakness Psychiatric: Denies: Anxiety, Depression, Homicidal Ideations, Suicidal Ideations Hematologic/ Lymphatic: Denies: Easy Bruising, Easy Bleeding Patient Problems: Active and Suspected Problems (Last Updated 09/18/18 @ 00:[address] Zhang Luo MD) Acute hypoxic respiratory insufficiency (Acute) 2019 novel coronavirus disease (COVID-19) (Acute) Objective: The patient's most recent lab work, culture data and imaging studies have all been personally reviewed. - Physical Exam Vitals/I&O's: Vital Signs Temp Pulse Resp BP Pulse Ox 101.0 F H 67 18 151/73 H 93 12/07/19 02:11 12/07/19 04:09 12/07/19 02:11 12/07/19 02:11 12/07/19 03:00 Oxygen Flow Rate (L/min) 2 Oxygen Delivery Method Nasal Cannula Weight: 236 lb 5.369 oz Body Mass Index (BMI) 33.0 Intake and Output for Last 24 Hours 12/05/19 12/06/19 12/07/19 23:59 23:59 23:59 Intake Total 350 / 350 Balance 350 / 350 General: Alert, No apparent distress HEENT: Atraumatic, Normocephalic Oral: Moist Mucosa, No Gingival or Mucosal Lesions/ Ulcerations Neck: Supple, No Nodes, Trachea Midline Lungs: Diminished, - - Speaking in complete sentences. No accessory muscle use. Cardiovascular: Regular rate, Regular Rhythm Abdomen: Bowel Sounds Present, Soft, Non Tender, Obese Extremities: No clubbing, No cyanosis, No edema Skin: No breakdown Musculoskeletal: No Tenderness to Palpation of Joints or Extremities Neurological: Cranial nerves II-XII grossly intact, Neuro grossly intact Psych/Mental Status: Normal Affect Labs (Last 48 Hours) 12/05/19 12/05/19 12/05/19 22:32 22:32 22:32 WBC 6.0 RBC 5.05 Hgb 15.8 Hct 46.6 MCV 92.3 MCH 31.3 MCHC 33.9 RDW Std Deviation 45.6 H RDW Coeff of Levi 13.5 Plt Count 134 L MPV 13.2 H Immature Gran % (Auto) 1.200 H Neut % (Auto) 79.0 H Lymph % (Auto) 13.8 L [place] % (Auto) 5.8 Eos % (Auto) 0.0 Baso % (Auto) 0.2 Absolute Neuts (auto) 4.8 Absolute Lymphs (auto) 0.83 Nucleated RBC % 0 Differential Comment PT INR Fibrinogen D-Dimer Quant (PE/DVT) Sodium 136 Potassium 3.8 Chloride 104 Carbon Dioxide 22.0 Anion Gap 10 BUN 23 H Creatinine 1.47 H Estim Creat Clear Calc 48.38 Est GFR (MDRD) Af Amer 61 Est GFR (MDRD) Non-Af 50 L BUN/Creatinine Ratio 15.6 Glucose 143 H Lactic Acid 1.2 Calcium 8.0 L Total Bilirubin 0.60 AST 43 H ALT 38 Alkaline Phosphatase 63 Lactate Dehydrogenase Total Creatine Kinase Troponin I < 0.015 C-React Prot Ext Range B-Natriuretic Peptide Total Protein 7.8 Albumin 3.5 Globulin 4.3 H Albumin/Globulin Ratio 0.8 L Procalcitonin 12/05/19 12/05/19 12/05/19 22:32 22:32 22:32 WBC RBC Hgb Hct MCV MCH MCHC RDW Std Deviation RDW Coeff of Levi Plt Count MPV Immature Gran % (Auto) Neut % (Auto) Lymph % (Auto) [place] % (Auto) Eos % (Auto) Baso % (Auto) Absolute Neuts (auto) Absolute Lymphs (auto) Nucleated RBC % Differential Comment PT 13.0 INR 1.0 Fibrinogen 501 H D-Dimer Quant (PE/DVT) 0.74 H* Sodium Potassium Chloride Carbon Dioxide Anion Gap BUN Creatinine Estim Creat Clear Calc Est GFR (MDRD) Af Amer Est GFR (MDRD) Non-Af BUN/Creatinine Ratio Glucose Lactic Acid Calcium Total Bilirubin AST ALT Alkaline Phosphatase Lactate Dehydrogenase 235 Total Creatine Kinase 679 H Troponin I C-React Prot Ext Range 44.70 H B-Natriuretic Peptide 6.0 Total Protein Albumin Globulin Albumin/Globulin Ratio Procalcitonin 12/05/19 12/07/19 12/07/19 22:32 06:03 06:03 WBC 7.6 RBC 5.09 Hgb 15.6 Hct 47.0 MCV 92.3 MCH 30.6 MCHC 33.2 RDW Std Deviation 46.4 H RDW Coeff of Levi 13.5 Plt Count 128 L MPV 12.9 H Immature Gran % (Auto) 0.400 Neut % (Auto) 83.4 H Lymph % (Auto) 9.6 L [place] % (Auto) 4.9 Eos % (Auto) 1.7 Baso % (Auto) 0.0 Absolute Neuts (auto) 6.3 Absolute Lymphs (auto) 0.73 L Nucleated RBC % 0 Differential Comment SCANNED PT INR Fibrinogen D-Dimer Quant (PE/DVT) Sodium 139 Potassium 3.8 Chloride 110 H Carbon Dioxide 20.0 L Anion Gap 9 BUN 36 H Creatinine 2.05 H Estim Creat Clear Calc 33.63 Est GFR (MDRD) Af Amer 41 L Est GFR (MDRD) Non-Af 34 L BUN/Creatinine Ratio 17.6 Glucose 141 H Lactic Acid Calcium 8.8 Total Bilirubin AST ALT Alkaline Phosphatase Lactate Dehydrogenase Total Creatine Kinase Troponin I C-React Prot Ext Range B-Natriuretic Peptide Total Protein Albumin Globulin Albumin/Globulin Ratio Procalcitonin 0.08 Clinical Impression(s) from Imaging Studies Chest X-Ray 12/05/19 22:44 IMPRESSION: Mild bilateral atelectasis versus infiltrates. at 0005 Reported and signed by: Suzette Estrada MD Electronically Signed: Suzette Estrada MD at 0:05 EDT Tel , Service support , Current Medications Acetaminophen (Acetaminophen 325 Mg Tablet) 650 mg PO Q6H PRN PRN PRN Reason: Pain Score 1-10/Temp > 100.7 F Last Admin: 12/07/19 02:12 Dose: 650 mg Documented by: Albuterol Sulfate (Albuterol Ih 8.5 Gm (Proair) Inhaler (200 Puffs)) 2 puff INHALATION Q4H PRN PRN PRN Reason: Shortness of breath, wheezing Amlodipine Besylate (Amlodipine 10 Mg Tablet) 10 mg PO DAILY [facility] Last Admin: 12/06/19 09:24 Dose: 10 mg Documented by: Dexamethasone Sodium Phosphate (Dexamethasone 10 Mg/Ml Vial) 6 mg IV DAILY [facility] Last Admin: 12/06/19 09:23 Dose: 6 mg Documented by: Enoxaparin Sodium (Enoxaparin 30 Mg/0.3 Ml Syringe) 30 mg SC DAILY [facility] Last Admin: 12/06/19 09:24 Dose: 30 mg Documented by: Hydralazine HCl (Hydralazine 20 Mg/Ml Vial) 10 mg IV Q6H PRN PRN PRN Reason: for SBP>160 Sodium Chloride () 250 mls @ 15 mls/hr IV .[id number] PRN PRN Reason: Saline Flush Sodium Chloride () 250 mls @ 15 mls/hr IV .[id number] PRN PRN Reason: Additional IVPB Infusion Losartan Potassium (Losartan Potassium 100 Mg Tablet) 100 mg PO DAILY [facility] Last Admin: 12/06/19 09:23 Dose: 100 mg Documented by: Ondansetron HCl (Ondansetron 4 Mg/2 Ml Vial) 4 mg IV Q8H PRN PRN PRN Reason: NAUSEA/VOMITING Senna/Docusate Sodium (Senna/Docusate Sodium 1 Tablet) 2 tablet PO BID PRN PRN PRN Reason: Constipation Sodium Chloride (0.9% Saline Lock 10 Ml Syringe) 10 - 40 ml IV UD PRN PRN Reason: SALINE FLUSH Last Admin: 12/06/19 09:24 Dose: 10 ml Documented by: Zolpidem Tartrate (Zolpidem Tartrate 5 Mg Tablet) 5 mg PO QHS PRN PRN PRN Reason: INSOMNIA Assessment/Plan All Active Problems (Last Updated 09/18/18 @ 00:[address] Zhang Luo MD) Acute hypoxic respiratory insufficiency (Acute) 2019 novel coronavirus disease (COVID-19) (Acute) RECOMMENDATIONS: 1. Continue Decadron 6 mg daily x10 days. 2. No current indication for remdesivir or convalescent plasma. 3. Continue Lovenox at current dose. 4. Wean supplemental oxygen to maintain saturations at or above 90%. 5. Encourage incentive spirometer use and mobilize patient as tolerated. IMPRESSIONS: 1. Acute hypoxemic respiratory insufficiency secondary to COVID-19 pneumonia The patient initially presented with symptoms in excess of 1 weeks duration, having tested positive on November 30. The patient is currently doing well from a respiratory perspective on minimal supplemental oxygen. Therefore, it is reasonable to continue current supportive measures with supplemental oxygen to maintain saturations at or above 90%. Decadron will be continued 6 mg daily x10 days. Given that the patient did not have a significantly elevated D-dimer level, DVT prophylaxis Lovenox is appropriate. 2. Hypertension/advanced age Complicates care, management, recovery and prognosis. Continue home medications as indicated. This note was generated with [employer] dictation software. It may contain incorrect words, spelling, and punctuation that were not noted in checking the note before signing. Inpatient E&M: 32417 Init Hosp L3
[2019-12-07 07:04] LABS: Absolute Lymphocyte Count 0.73 X10^3/uL (0.83-4.51); Absolute Neutrophil Count 6.3 X10^3/uL (2.0-7.7); Eosinophil# 0.13 X10^3/uL; Eosinophils% 1.7 % (0-5); Hemoglobin 15.6 g/dL (13.0-16.5); Lymphocyte # 0.73 X10^3/ul (4.0); Lymphocyte % 9.6 % (19-41); Mean Corp Hgb Conc 33.2 g/dL (32-36); Mean Corpuscular Hgb 30.6 pg (27.0-32.0); Mean Corpuscular Volume 92.3 fL (80-94); Mean Platelet Vol. 12.9 fl (6.2-12.0); Monocyte# 0.37 X10^3/uL; Monocyte% 4.9 % (0-10); NRBC Flagged by Analyzer 0 % (0-5); Neutrophil # 6.31 X10^3/uL (2.7-7.7); Neutrophil % 83.4 % (47-70); POSITIVE MORPHOLOGY YES; Platelet Count 128 K/mm3 (150-450); RBC Distribution Width CV 13.5 % (11.6-14.6); RBC Distribution Width SD 46.4 fl (35.1-43.9); Red Blood Count 5.09 M/mm3 (4.6-6.2); White Blood Count 7.6 K/mm3 (4.4-11.0)
[2019-12-07 07:10] LABS: Anion Gap 9 (5-15); BUN 36 mg/dL (7-18); BUN/Creat Ratio 17.6 RATIO (10-20); Calcium,Total 8.8 mg/dL (8.5-10.1); Chloride 110 mmol/L (98-107); Creatinine, Serum 2.05 mg/dL (0.70-1.30); EST Glomerular Filtration Rate 34 mL/min (>60); Est Glom Filt Rate - Afr Amer 41 mL/min (>60); Estimated Creatinine Clearance 33.63 ml/min; Glucose 141 mg/dL (74-106); Potassium 3.8 mmol/L (3.5-5.1); Sodium Level 139 mmol/L (136-145)
--- NOTE | 2019-12-07 07:42 | PN_ITS ---
Patient Problems: Active and Suspected Problems (Last Updated 09/18/18 @ 00:[address] Zhang Luo MD) Acute hypoxic respiratory insufficiency (Acute) 2019 novel coronavirus disease (COVID-19) (Acute) Subjective: Patient seen and examined today. He has remained hemodynamically stable and has no complaints. He remains on 2 L of oxygen. Review of symptoms otherwise negative. Vitals/I&O's: Vital Signs Temp Pulse Resp BP Pulse Ox 98.8 F 67 19 H 149/74 H 97 12/07/19 04:20 12/07/19 04:20 12/07/19 04:20 12/07/19 04:20 12/07/19 04:20 Oxygen Flow Rate (L/min) 2 Oxygen Delivery Method Nasal Cannula Weight: 236 lb 5.369 oz Body Mass Index (BMI) 33.0 Intake and Output for Last 24 Hours 12/05/19 12/06/19 12/07/19 23:59 23:59 23:59 Intake Total 350 / 350 300 / 300 Balance 350 / 350 300 / 300 General: Alert, Oriented x3, Cooperative, No apparent distress HEENT: Atraumatic, PERRLA, EOMI, Normocephalic Oral: Moist Mucosa Neck: Supple, No JVD, Negative Carotid Bruits Lungs: Clear to auscultation, Normal air movement, - - on 2L of oxygen by nasal canula Cardiovascular: Regular rate, No murmurs Abdomen: Bowel Sounds Present, Soft, Non Tender Extremities: No edema, Capillary Refill Less than 3 Seconds Skin: No rashes, No breakdown Musculoskeletal: No Tenderness to Palpation of Joints or Extremities Lymphatic: No Cervical, Supraclavicular, or Inguinal Adenopathy Neurological: Cranial nerves II-XII grossly intact, Neuro grossly intact, Motor Exam 5/5 strength throughout Psych/Mental Status: Normal Affect, Appropriate, Alert and oriented to time, place, person, mood and affect Laboratory Results 12/07/19 06:03: WBC Pending, RBC Pending, Hgb Pending, Hct Pending, MCV Pending, MCH Pending, MCHC Pending, RDW Std Deviation Pending, RDW Coeff of Levi Pending, Plt Count Pending, Neut % (Auto) Pending, Absolute Neuts (auto) Pending 12/07/19 06:03: Sodium 139, Potassium 3.8, Chloride 110 H, Carbon Dioxide 20.0 L , Anion Gap 9, BUN 36 H, Creatinine 2.05 H, Estim Creat Clear Calc 33.63, Est GFR (MDRD) Af Amer 41 L, Est GFR (MDRD) Non-Af 34 L, BUN/Creatinine Ratio 17.6, Glucose 141 H, Calcium 8.8 Diagnostic Data Chest X-Ray 12/05/19 22:44 IMPRESSION: Mild bilateral atelectasis versus infiltrates. at 0005 Reported and signed by: Suzette Estrada MD Electronically Signed: Suzette Estrada MD at 0:05 EDT Tel , Service support , Current Medications Acetaminophen (Acetaminophen 325 Mg Tablet) 650 mg PO Q6H PRN PRN PRN Reason: Pain Score 1-10/Temp > 100.7 F Last Admin: 12/07/19 02:12 Dose: 650 mg Documented by: Albuterol Sulfate (Albuterol Ih 8.5 Gm (Proair) Inhaler (200 Puffs)) 2 puff INHALATION Q4H PRN PRN PRN Reason: Shortness of breath, wheezing Amlodipine Besylate (Amlodipine 10 Mg Tablet) 10 mg PO DAILY [facility] Last Admin: 12/06/19 09:24 Dose: 10 mg Documented by: Dexamethasone Sodium Phosphate (Dexamethasone 10 Mg/Ml Vial) 6 mg IV DAILY [facility] Last Admin: 12/06/19 09:23 Dose: 6 mg Documented by: Enoxaparin Sodium (Enoxaparin 30 Mg/0.3 Ml Syringe) 30 mg SC DAILY [facility] Last Admin: 12/06/19 09:24 Dose: 30 mg Documented by: Hydralazine HCl (Hydralazine 20 Mg/Ml Vial) 10 mg IV Q6H PRN PRN PRN Reason: for SBP>160 Sodium Chloride () 250 mls @ 15 mls/hr IV .[id number] PRN PRN Reason: Saline Flush Sodium Chloride () 250 mls @ 15 mls/hr IV .[id number] PRN PRN Reason: Additional IVPB Infusion Losartan Potassium (Losartan Potassium 100 Mg Tablet) 100 mg PO DAILY [facility] Last Admin: 12/06/19 09:23 Dose: 100 mg Documented by: Ondansetron HCl (Ondansetron 4 Mg/2 Ml Vial) 4 mg IV Q8H PRN PRN PRN Reason: NAUSEA/VOMITING Senna/Docusate Sodium (Senna/Docusate Sodium 1 Tablet) 2 tablet PO BID PRN PRN PRN Reason: Constipation Sodium Chloride (0.9% Saline Lock 10 Ml Syringe) 10 - 40 ml IV UD PRN PRN Reason: SALINE FLUSH Last Admin: 12/06/19 09:24 Dose: 10 ml Documented by: Zolpidem Tartrate (Zolpidem Tartrate 5 Mg Tablet) 5 mg PO QHS PRN PRN PRN Reason: INSOMNIA STROKE Vital Signs/Narrative: Vital Signs Temp Pulse Resp BP Pulse Ox 12/07/19 04:20 98.8 F 67 19 H 149/74 H 97 12/07/19 04:09 67 Medical Necessity - Tobacco Use Smoking Status: Former smoker Assessment/Plan All Active Problems (Last Updated 09/18/18 @ 00:[address] Zhang Luo MD) Acute hypoxic respiratory insufficiency (Acute) 2019 novel coronavirus disease (COVID-19) (Acute) # COVID 19 infection * patient still on 2L of oxygen today. * On IV Decadron. ID consulted. pulmonology consulted * Breathing treatments with bronchodilators. * Titrate oxygen to maintain saturation above 90%. * Acute hypoxic respiratory insufficiency due to COVID-19 infection: As above # Debility due to Mechanical fall * Had a mechanical fall today. It was an unwitnessed fall. CT of the brain obtained was negative for any intracranial bleed. * Fall precautions. PT OT consults. * I spoke extensively to patient's daughter who said her father has been declining since her mother in August 2018. Patient appears to be losing the will to live and has become more forgetful. He also has a history of Alzheimer's dementia in his sister and his mother. Daughter is worried that she is losing her father. She says he does not really seem to care about live anymore since her mother . I asked daughter if she thought her father was depressed and daughter answered in the affirmative that she bel ieves that her father may be depressed. She says that he did not pursue grief counseling after her mother and has not seemed to cope very well. She is concerned about his safety at home as he lives alone. * Discussed with daughter that I would put a neurology consult to see if there was any other organic pathology that we may be missing. Patient would need to get better from Covid and for any other organic pathology to be ruled out before Alzheimer's dementia can be diagnosed. Will order vitamin B12 and folate as well. * May benefit from placement for short-term rehab upon discharge. Will start patient on Remeron to help with his appetite and also with his mood. * #Hypertension: On Norvasc and losartan. THERESE on CKD 3: Cr today is 2.05; was 1.;47 on admission. Hydrate gently with IVF and monitor DVT prophylaxis:lovenox discontinued o/a of mechanical fall, especially since it is the second time in less than a week. SCDs. Inpatient E&M: 12712 Subs Hosp L2
[2019-12-07 09:09] LABS: Differential Indicated SCAN CRITERIA MET
[2019-12-07 09:10] LABS: Differential Comment SCANNED
[2019-12-07] MEDS: Enoxaparin 30 MG/0.3 ML Syringe SC (10:31)
[2019-12-07] MEDS: 0.9% Saline Lock 10 ML Syringe IV (10:31)
[2019-12-07] MEDS: amLODIPine 10 MG Tablet PO (10:32)
[2019-12-07] MEDS: dexAMETHasone 10 MG/ML Vial 6 MG IV (10:32)
[2019-12-07] MEDS: Losartan Potassium 100 MG Tablet PO (10:32)
[2019-12-07] MEDS: Ondansetron 4 MG/2 ML Vial IV (10:39)
--- NOTE | 2019-12-07 11:48 | CT_ITS ---
STUDY: CT BRAIN WITHOUT CONTRAST REASON FOR EXAM: Male, 74 years old. COVID + PATIENT FELL AND HIT RIGHT FOREHEAD RADIATION DOSAGE (If Supplied By Facility): CTDIvol = ( 44.99 ) mGy, DLP = ( 863.60 ) mGycm TECHNIQUE: Transaxial CT imaging of the brain was performed without administration of intravenous contrast material. Individualized dose optimization techniques were used for this CT. COMPARISON: No relevant priors. FINDINGS: Normal soft tissue structures. Normal calvarium. There is mild cerebral atrophy with widening of the extra-axial spaces and ventricular dilatation. There are areas of decreased attenuation within the white matter tracts of the supratentorial brain, consistent with microvascular disease changes. There are small punctate calcifications of the basal ganglia which are seen in the aging brain as a normal variant. Normal brainstem. Normal cerebellum. There is no intracranial hemorrhage. There are no findings of an acute ischemic infarction. Normal visualized paranasal sinuses. CT/Brain/Head without Contrast IMPRESSION: Chronic involutional changes of the brain. Electronically Signed: Faisal Mares MD at 13:05 EDT Tel , Service support ,
--- NOTE | 2019-12-07 12:20 | NURSING ---
spoke with pt daughter Bibi and updated on events. bibi states i have been concerned since he first fell that something neurologically was wrong. i am glad you called, because when i called him this morning on his phone, i don't think he recognized me and he wasn't able to finish his complete thoughts when we were talking, this has been bothering me since he fell at home and i am just concerned. updated on pt status and that pt is going down for head CT, said nurse will convey daughters concerns to Dr. Mendieta and keep Bibi updated at said number.
[2019-12-07] MEDS: 0.9% Normal Saline 1,000 ML 125 ML IV (13:54)
--- NOTE | 2019-12-07 14:01 | TELEMED_ITS ---
[facility] Telemed has confirmed receipt of a request for visit. This document confirms receipt of the order initiating the consult. To find the results of the consultation, please view the patient's reports for the scanned Telemed Consult.
--- NOTE | 2019-12-07 16:31 | NURSING ---
[facility] neuro mobile unit taken in to bedside
--- NOTE | 2019-12-07 17:44 | NURSING ---
Dr. Moses teleradiology number- requests to have Dr. Mendieta phone her at said number.
[2019-12-07 19:05] LABS: Color, Urine Yellow (Yellow); Glucose, Dipstick Normal (Normal); Ketone-Dipstick Negative (Negative); Leukocyte Esterase-Dipstick Negative /ul (Negative); Nitrite-Dipstick Negative (Negative); Occult Blood-Urine 25 /ul (Negative); Protein-Dipstick 100 mg/dl (Negative); Urine Bilirubin Dipstick Negative (Negative); Urine Clarity Clear (Clear); Urine Urobilinogen 1 mg/dl (Normal)
[2019-12-07] MEDS: Mirtazapine 15 MG Tablet PO (22:15)
[2019-12-08] VITALS (12 sets, daily range): BP systolic 115–181; BP diastolic 66–86; PULSE 66–82; RESP 17–24; TEMP 36.4–38.8; O2SAT 87–94
[2019-12-08] MEDS: hydrALAZINE 20 MG/ML Vial 10 MG IV (05:03)
[2019-12-08] MEDS: Acetaminophen 325 MG Tablet 650 MG PO (05:03)
[2019-12-08] MEDS: 0.9% Saline Lock 10 ML Syringe IV ×2 (05:04→09:12)
[2019-12-08 05:35] LABS: Absolute Lymphocyte Count 0.97 X10^3/uL (0.83-4.51); Basophil# 0.01 X10^3/uL; Basophil% 0.1 % (0-1); Eosinophil# 0.13 X10^3/uL; Eosinophils% 1.5 % (0-5); Hematocrit 48.8 % (40-54); Hemoglobin 16.2 g/dL (13.0-16.5); Lymphocyte # 0.97 X10^3/ul (4.0); Lymphocyte % 11.5 % (19-41); Mean Corp Hgb Conc 33.2 g/dL (32-36); Mean Corpuscular Volume 93.3 fL (80-94); Mean Platelet Vol. 12.2 fl (6.2-12.0); Monocyte# 0.32 X10^3/uL; Monocyte% 3.8 % (0-10); NRBC Flagged by Analyzer 0 % (0-5); Neutrophil # 6.98 X10^3/uL (2.7-7.7); Neutrophil % 82.7 % (47-70); POSITIVE MORPHOLOGY YES; Platelet Count 155 K/mm3 (150-450); RBC Distribution Width CV 13.7 % (11.6-14.6); RBC Distribution Width SD 47.4 fl (35.1-43.9); Red Blood Count 5.23 M/mm3 (4.6-6.2); White Blood Count 8.4 K/mm3 (4.4-11.0)
[2019-12-08 05:44] LABS: Differential Indicated SCAN CRITERIA MET
[2019-12-08 06:01] LABS: Anion Gap 8 (5-15); BUN 35 mg/dL (7-18); BUN/Creat Ratio 21.5 RATIO (10-20); Calcium,Total 8.6 mg/dL (8.5-10.1); Chloride 112 mmol/L (98-107); Creatinine, Serum 1.63 mg/dL (0.70-1.30); EST Glomerular Filtration Rate 44 mL/min (>60); Est Glom Filt Rate - Afr Amer 54 mL/min (>60); Glucose 132 mg/dL (74-106); Potassium 3.8 mmol/L (3.5-5.1); Sodium Level 142 mmol/L (136-145)
[2019-12-08 07:13] LABS: Differential Comment SCANNED
--- NOTE | 2019-12-08 09:02 | NURSING ---
PT HAD TAKEN OFF NC, UNSURE HOW LONG IT WAS OFF. SAT 89% ON RA - REPLACED O2 NC @ 1L
[2019-12-08] MEDS: dexAMETHasone 10 MG/ML Vial 6 MG IV (09:12)
[2019-12-08] MEDS: Losartan Potassium 100 MG Tablet PO (09:12)
[2019-12-08] MEDS: amLODIPine 10 MG Tablet PO (10:23)
--- NOTE | 2019-12-08 12:31 | CASEMGMT ---
Addendum entered by Haley Moran 12/08/19 17:12: Correction: [facility] transfer center: [phone]. Mónica, coordinator: ext: [phone] Addendum entered by Haley Moran 12/08/19 13:49: Call received back from MARKELL Leiva. She was made aware daughter is requesting SNF and possible need of long-term placement. Renetta also made aware [facility] @ [facility] states pt is not service connected and not eligible for any [place] contracted facility and that daughter, Aniya, has not been made aware of this yet. Original Note: RN CM NOTE: Pt has been confused and oriented to name only. Staff also reports pt has required 2 assist. Call placed to pt's daughter, Aniya. *Discussed option for pt to transfer to [facility]. Aniya states she wishes for pt to stay @ [facility] and have hospitalization billed through [facility]. Aniya confirmed this w/TI Michael, as well via phone and declination to transfer form signed by this show card writer and by Fernanda. Form faxed to [facility], copy made and placed on chart and original given to RN to take into pt's room when she goes in next to be placed in pt's folder. *Discussed discharge planning w/Aniya at this time as well. Aniya states pt has been falling @ home and she does not feel he will be safe to return home. She feels he will need SNF @ discharge and states she feels he may even need long-term placement after SNF, as she does not know if he will be able to return home even after skilled care. Aniya states that pt has full benefits and wants to discuss options of placement through the [place]. Aniya made aware that SW would call her to discuss SNF in further detail. Call placed to MARKELL, Renetta Durham, and message left for her to return call to this RN CM. Call placed to [facility] @ [phone], ext: [phone]. . She was made aware daughter has signed declination to transfer form and form has been faxed at this time. Mónica states she is also covering COVID + pt's/SNF. Per Mónica, pt is not service connected and therefore is not eligible for any [place] contracted facility-- (SNF, long-term placement, or LTACH). Kalyn CABRAL RN CM
--- NOTE | 2019-12-08 13:09 | NURSING ---
PT SET OFF BED ALARM, WHEN ENTERED ROOM, PT HAD ALREADY WALKED IN TO BR. PULLED TELE & O2 OFF, STOOL ON BED & FLOOR. REMINDED PT NOT TO GET OOB BY SELF. ASSISTED BACKED TO BED W/WALKER X2 ASSIST, SHUFFLING/UNSTEADY GAIT. BED EXIT ON.
--- NOTE | 2019-12-08 13:54 | PCM.PN.HOSP ---
Patient Problems: Active and Suspected Problems (Last Updated 09/18/18 @ 00:[address] Zhang Luo MD) Acute hypoxic respiratory insufficiency (Acute) 2019 novel coronavirus disease (COVID-19) (Acute) Reason for Visit: COVID-19 Subjective: No new complaints. Vitals/I&O's: Vital Signs Temp Pulse Resp BP Pulse Ox 37.4 C H 74 24 H 127/69 H 89 12/08/19 08:59 12/08/19 10:00 12/08/19 08:59 12/08/19 08:59 12/08/19 09:03 Oxygen Flow Rate (L/min) 1 Oxygen Delivery Method Room Air Weight: 107.2 kg Body Mass Index (BMI) 33.0 Intake and Output for Last 24 Hours 12/06/19 12/07/19 12/08/19 23:59 23:59 23:59 Intake Total 350 / 350 1600 / 1600 800 / 800 Output Total 800 / 800 1150 / 1150 Balance 350 / 350 800 / 800 -350 / -350 General: No apparent distress, Confused HEENT: Atraumatic, Normocephalic Oral: Moist Mucosa, No Gingival or Mucosal Lesions/ Ulcerations Neck: No Nodes, Thyroid Normal Size and Texture Lungs: Normal air movement, - - coarse breath sounds bilaterally. Cardiovascular: Regular rate, Regular Rhythm, Normal S1, Normal S2, No murmurs Abdomen: Bowel Sounds Present, Soft, Non Tender, Non-Distended Extremities: No edema, No Calf Tenderness Skin: No rashes, No breakdown Microbiology Past 72 Hours 12/07/19 18:30 Urine Catheter - Glasgow Urine Culture - Preliminary Culture exhibits no growth. 12/05/19 22:46 Blood Culture (Wb) - Right Hand Blood Culture - Preliminary No growth in 48 hours. 12/05/19 22:32 Blood Culture (Wb) - Anticubital Left Blood Culture - Preliminary No growth in 48 hours. Laboratory Results 12/07/19 18:30: Urine Color Yellow, Urine Clarity Clear, Urine pH 5.0, Ur Specific [place] 1.020, Urine Protein 100 H, Urine Glucose (UA) Normal, Urine Ketones Negative, Urine Occult Blood 25 H, Urine Nitrite Negative, Urine Bilirubin Negative, Urine Urobilinogen 1 H, Ur Leukocyte Esterase Negative 12/08/19 05:14: WBC 8.4, RBC 5.23, Hgb 16.2, Hct 48.8, MCV 93.3, MCH 31.0, MCHC 33.2, RDW Std Deviation 47.4 H, RDW Coeff of Leiv 13.7, Plt Count 155, MPV 12.2 H, Immature Gran % (Auto) 0.400, Neut % (Auto) 82.7 H, Lymph % (Auto) 11.5 L, [place] % (Auto) 3.8, Eos % (Auto) 1.5, Baso % (Auto) 0.1, Absolute Neuts (auto) 7.0, Absolute Lymphs (auto) 0.97, Nucleated RBC % 0, Differential Comment SCANNED 12/08/19 05:14: Sodium 142, Potassium 3.8, Chloride 112 H, Carbon Dioxide 22.0, Anion Gap 8, BUN 35 H, Creatinine 1.63 H, Estim Creat Clear Calc 42.30, Est GFR (MDRD) Af Amer 54 L, Est GFR (MDRD) Non-Af 44 L, BUN/Creatinine Ratio 21.5 H, Glucose 132 H, Calcium 8.6 Current Medications Acetaminophen (Acetaminophen 325 Mg Tablet) 650 mg PO Q6H PRN PRN PRN Reason: Pain Score 1-10/Temp > 100.7 F Last Admin: 12/08/19 05:03 Dose: 650 mg Documented by: Albuterol Sulfate (Albuterol Ih 8.5 Gm (Proair) Inhaler (200 Puffs)) 2 puff INHALATION Q4H PRN PRN PRN Reason: Shortness of breath, wheezing Amlodipine Besylate (Amlodipine 10 Mg Tablet) 10 mg PO DAILY [facility] Last Admin: 12/08/19 10:23 Dose: 10 mg Documented by: Dexamethasone Sodium Phosphate (Dexamethasone 10 Mg/Ml Vial) 6 mg IV DAILY [facility] Last Admin: 12/08/19 09:12 Dose: 6 mg Documented by: Enoxaparin Sodium (Enoxaparin 30 Mg/0.3 Ml Syringe) 30 mg SC DAILY [facility] Last Admin: 12/07/19 10:31 Dose: 30 mg Documented by: Hydralazine HCl (Hydralazine 20 Mg/Ml Vial) 10 mg IV Q6H PRN PRN PRN Reason: for SBP>160 Last Admin: 12/08/19 05:03 Dose: 10 mg Documented by: Sodium Chloride () 250 mls @ 15 mls/hr IV .[id number] PRN PRN Reason: Saline Flush Sodium Chloride () 250 mls @ 15 mls/hr IV .[id number] PRN PRN Reason: Additional IVPB Infusion Losartan Potassium (Losartan Potassium 100 Mg Tablet) 100 mg PO DAILY [facility] Last Admin: 12/08/19 09:12 Dose: 100 mg Documented by: Mirtazapine (Mirtazapine 15 Mg Tablet) 15 mg PO QHS [facility]QU[facility] Last Admin: 12/07/19 22:15 Dose: 15 mg Documented by: Ondansetron HCl (Ondansetron 4 Mg/2 Ml Vial) 4 mg IV Q8H PRN PRN PRN Reason: NAUSEA/VOMITING Last Admin: 12/07/19 10:39 Dose: 4 mg Documented by: Senna/Docusate Sodium (Senna/Docusate Sodium 1 Tablet) 2 tablet PO BID PRN PRN PRN Reason: Constipation Sodium Chloride (0.9% Saline Lock 10 Ml Syringe) 10 - 40 ml IV UD PRN PRN Reason: SALINE FLUSH Last Admin: 12/08/19 09:12 Dose: 10 ml Documented by: Zolpidem Tartrate (Zolpidem Tartrate 5 Mg Tablet) 5 mg PO QHS PRN PRN PRN Reason: INSOMNIA STROKE Vital Signs/Narrative: Vital Signs Pulse 12/08/19 10:00 74 Medical Necessity - Tobacco Use Smoking Status: Former smoker Assessment/Plan All Active Problems (Last Updated 09/18/18 @ 00:[address] Zhang Luo MD) Acute hypoxic respiratory insufficiency (Acute) 2019 novel coronavirus disease (COVID-19) (Acute) 1. acute COVID-19 negative on IV dexamethasone day 3 wean oxygen as tolerated 2. acute hypoxic respiratory insufficiency wean o2 as tolerated 3. Debility SNF upon discharge apparently patient has been decline since his 's last year 4. possible dementia forgetful and this has been progressive dw patient's dtr, recommend outpt geriatric evaluation for formal dementia eval complicated by likely underlying depression, which he has been started on mirtazapine. 5. VTE prophylaxis: LMWH Advanced care planning: Greater than 16 minutes discussed with the patient's daughter Kathi. Discussed CPR and intubation. She and her brother, do not want the patient to have CPR. She is unsure about intubation. I encouraged her to talk further with her brother to let us know or come to a conclusion down the road. Informed her that I do not have any immediate concerns for intubation at this time. Inpatient E&M: 13231 Subs Hosp L2 Procedures: 88017 Advncd Care Plan 30 Min
--- NOTE | 2019-12-08 14:10 | PCM.PN.PUL ---
Patient Problems: Active and Suspected Problems (Last Updated 09/18/18 @ 00:[address] Zhang Luo MD) Acute hypoxic respiratory insufficiency (Acute) 2019 novel coronavirus disease (COVID-19) (Acute) Subjective: Patient did well overnight. No acute issues were reported outside of fever. Patient states that he feels fatigued today. Patient is not reporting any bleeding complications. Patient denies any nausea or diarrhea. - Physical Exam Vitals/I&O's: Vital Signs Temp Pulse Resp BP Pulse Ox 37.4 C H 74 24 H 127/69 H 89 12/08/19 08:59 12/08/19 10:00 12/08/19 08:59 12/08/19 08:59 12/08/19 09:03 Oxygen Flow Rate (L/min) 1 Oxygen Delivery Method Room Air Weight: 107.2 kg Body Mass Index (BMI) 33.0 Intake and Output for Last 24 Hours 12/06/19 12/07/19 12/08/19 23:59 23:59 23:59 Intake Total 350 / 350 1600 / 1600 800 / 800 Output Total 800 / 800 1150 / 1150 Balance 350 / 350 800 / 800 -350 / -350 General: Alert, Oriented x3, Cooperative, - - Mild conversational dyspnea. HEENT: Atraumatic, PERRLA, EOMI, Normocephalic, - - No scleral icterus or injection noted. Glasses in place. Oral: Moist Mucosa, No Gingival or Mucosal Lesions/ Ulcerations Neck: Supple, No JVD, No Nodes, Trachea Midline Lungs: No rhonchi, No wheeze, No rales, Diminished, - - Symmetric expansion. No dullness to percussion. Cardiovascular: Regular rate, Regular Rhythm, Normal S1, Normal S2, No murmurs, No rub noted, No Gallop Abdomen: Bowel Sounds Present, Soft, Non Tender, Non-Distended, Obese Extremities: No clubbing, No cyanosis, Edema - Trace lower extremity Skin: No rashes, No breakdown Musculoskeletal: No Tenderness to Palpation of Joints or Extremities Lymphatic: No Cervical, Supraclavicular, or Inguinal Adenopathy Neurological: Cranial nerves II-XII grossly intact, Neuro grossly intact, Motor Exam 5/5 strength throughout Psych/Mental Status: Alert and oriented to time, place, person, mood and affect Microbiology Past 72 Hours 12/07/19 18:30 Urine Catheter - [place] Urine Culture - Preliminary Culture exhibits no growth. 12/05/19 22:46 Blood Culture (Wb) - Right Hand Blood Culture - Preliminary No growth in 48 hours. 12/05/19 22:32 Blood Culture (Wb) - Anticubital Left Blood Culture - Preliminary No growth in 48 hours. Laboratory Results 12/07/19 18:30: Urine Color Yellow, Urine Clarity Clear, Urine pH 5.0, Ur Specific [place] 1.020, Urine Protein 100 H, Urine Glucose (UA) Normal, Urine Ketones Negative, Urine Occult Blood 25 H, Urine Nitrite Negative, Urine Bilirubin Negative, Urine Urobilinogen 1 H, Ur Leukocyte Esterase Negative 12/08/19 05:14: WBC 8.4, RBC 5.23, Hgb 16.2, Hct 48.8, MCV 93.3, MCH 31.0, MCHC 33.2, RDW Std Deviation 47.4 H, RDW Coeff of Levi 13.7, Plt Count 155, MPV 12.2 H, Immature Gran % (Auto) 0.400, Neut % (Auto) 82.7 H, Lymph % (Auto) 11.5 L, [place] % (Auto) 3.8, Eos % (Auto) 1.5, Baso % (Auto) 0.1, Absolute Neuts (auto) 7.0, Absolute Lymphs (auto) 0.97, Nucleated RBC % 0, Differential Comment SCANNED 12/08/19 05:14: Sodium 142, Potassium 3.8, Chloride 112 H, Carbon Dioxide 22.0, Anion Gap 8, BUN 35 H, Creatinine 1.63 H, Estim Creat Clear Calc 42.30, Est GFR (MDRD) Af Amer 54 L, Est GFR (MDRD) Non-Af 44 L, BUN/Creatinine Ratio 21.5 H, Glucose 132 H, Calcium 8.6 Current Medications Acetaminophen (Acetaminophen 325 Mg Tablet) 650 mg PO Q6H PRN PRN PRN Reason: Pain Score 1-10/Temp > 100.7 F Last Admin: 12/08/19 05:03 Dose: 650 mg Documented by: Albuterol Sulfate (Albuterol Ih 8.5 Gm (Proair) Inhaler (200 Puffs)) 2 puff INHALATION Q4H PRN PRN PRN Reason: Shortness of breath, wheezing Amlodipine Besylate (Amlodipine 10 Mg Tablet) 10 mg PO DAILY [facility] Last Admin: 12/08/19 10:23 Dose: 10 mg Documented by: Dexamethasone Sodium Phosphate (Dexamethasone 10 Mg/Ml Vial) 6 mg IV DAILY [facility] Last Admin: 12/08/19 09:12 Dose: 6 mg Documented by: Enoxaparin Sodium (Enoxaparin 30 Mg/0.3 Ml Syringe) 30 mg SC DAILY [facility] Last Admin: 12/07/19 10:31 Dose: 30 mg Documented by: Hydralazine HCl (Hydralazine 20 Mg/Ml Vial) 10 mg IV Q6H PRN PRN PRN Reason: for SBP>160 Last Admin: 12/08/19 05:03 Dose: 10 mg Documented by: Sodium Chloride () 250 mls @ 15 mls/hr IV .[id number] PRN PRN Reason: Saline Flush Sodium Chloride () 250 mls @ 15 mls/hr IV .[id number] PRN PRN Reason: Additional IVPB Infusion Losartan Potassium (Losartan Potassium 100 Mg Tablet) 100 mg PO DAILY [facility] Last Admin: 12/08/19 09:12 Dose: 100 mg Documented by: Mirtazapine (Mirtazapine 15 Mg Tablet) 15 mg PO QHS [facility] Last Admin: 12/07/19 22:15 Dose: 15 mg Documented by: Ondansetron HCl (Ondansetron 4 Mg/2 Ml Vial) 4 mg IV Q8H PRN PRN PRN Reason: NAUSEA/VOMITING Last Admin: 12/07/19 10:39 Dose: 4 mg Documented by: Senna/Docusate Sodium (Senna/Docusate Sodium 1 Tablet) 2 tablet PO BID PRN PRN PRN Reason: Constipation Sodium Chloride (0.9% Saline Lock 10 Ml Syringe) 10 - 40 ml IV UD PRN PRN Reason: SALINE FLUSH Last Admin: 12/08/19 09:12 Dose: 10 ml Documented by: Zolpidem Tartrate (Zolpidem Tartrate 5 Mg Tablet) 5 mg PO QHS PRN PRN PRN Reason: INSOMNIA Medical Necessity - Tobacco Use Smoking Status: Former smoker Assessment/Plan All Active Problems (Last Updated 09/18/18 @ 00:[address] Zhang Luo MD) Acute hypoxic respiratory insufficiency (Acute) 2019 novel coronavirus disease (COVID-19) (Acute) RECOMMENDATIONS: 1. Complete course of Decadron 6 mg daily x10 days. 2. No current indication for remdesivir or convalescent plasma in my opinion. 3. Continue Lovenox at current dose. Possibly transition to 10 a inhibitor in the next 24 to 48 hours 4. Wean supplemental oxygen to maintain saturations at or above 90%. 5. Encourage incentive spirometer use and mobilize patient as tolerated. IMPRESSIONS: 1. Acute hypoxemic respiratory insufficiency secondary to COVID-19 pneumonia The patient initially presented with symptoms in excess of 1 weeks duration, having tested positive on November 30. The patient is currently doing well from a respiratory perspective on minimal supplemental oxygen. Therefore, I believe it is reasonable to continue current supportive measures with supplemental oxygen to maintain saturations at or above 90%. Decadron will be continued 6 mg daily x10 days. Given that the patient did not have a significantly elevated D-dimer level, DVT prophylaxis Lovenox is appropriate. Likely transition to a 10 a inhibitor in the next 24 to 48 hours with anticipation of continuation for at least 21 days. 2. Hypertension/advanced age Complicates care, management, recovery and prognosis. Continue home medications as indicated. Patient may require increased antihypertensive medications while on Decadron. Inpatient E&M: 43914 Subs Hosp L2
--- NOTE | 2019-12-08 14:59 | CASEMGMT ---
Addendum entered by Renetta Durham 12/08/19 17:17: MARKELL placed another call to pt's son Marino and offered the [facility] Number. Marino states he googled a number to call and got a [facility] of [facility]. Marino states he was updated that pt should be service connected, it was a mishap in the paperwork and he will be getting the paperwork figured out to get pt [facility] service connected. MARKELL informed pt that this worker is not sure how long it was take pt to get paperwork turned it and for pt to become [facility] service connected but this worker can always get pt to SNF under Medicare and then Marino can work on getting the [facility] paperwork submitted and then pt could remain in SNF jail under [place] paperwork if pt becomes [facility] service connected. MARKELL informed Marino that this worker called [facility] SW and left message and will ask [facility] for list of [place] SNF currently taking [place]+ pt. SW informed Marino that this worker will keep him and/or Bibi updated. Marino states understanding. Addendum entered by Renetta Durham 12/08/19 17:07: Marino also requested RN call him for update on pt. MARKELL updated RN CM to update RN to call pt's son Marino for medical update. Addendum entered by Renetta Durham 12/08/19 16:43: MARKELL received call from pt's daughter Bibi. MARKELL updated Bibi that per Mónica at [facility] pt is not service connected, [place] not [place] for [place]F. MARKELL informed Bibi that pt could admit to SNF under Medicare and verbally provided list of SNF that are currently accepting COVID+ pt. Bibi asked that this worker emails her a list of SNF that are accepting COVID pts. Bibi provided email [email or web address]. MARKELL emailed list. MARKELL then received a call from pt's son Marino asking how pt is not service connected. MARKELL informed Marino that that is just what Mónica at [facility] had mentioned to the RN CM And that this worker didn't talk to Mónica directly. MARKELL is just relaying message that [place] will not pay for SNF. Marino requested number for Mónica. MARKELL provided Marino with Mónica number per RN CM note. MARKELL placed a call to MARKELL Hardy at [facility] and left message regarding pt. MARKELL then received message from pt's son Marino stating the number this SW provided to him is not working. SW tried to call Mónica with number provided in RN CM note, number is not available. Original Note: Social Work Note SW received referral for SNF placement. Pt is apparently confused. SW placed a call to pt's daughter Kathi and left message for her to call this worker back. SW waiting for call back. Plan: SNF pending acceptance Renetta Durham WATER TAXI DRIVER, PRESS MACHINE FEEDER
[2019-12-08 16:40] LABS: Thyroid Stim Hormone (TSH) 0.79 uIU/mL (0.358-3.74)
--- NOTE | 2019-12-08 16:45 | CON.PCM_ITS ---
Problem List (1) 2018 novel coronavirus disease (COVID-19) Status: Acute Reason for Consult: covid Consulted by: Dr. Jensen History of Present Illness: The patient is a 74 year old M who presented with worsened mental status, dyspnea, cough, not feeling well, fatigue on 12/05. Covid (+) 11/30, reported to have been symptomatic for at least several days prior to that. Admited on dex, bid lovenox prophylaxis, seen by pulm. Feeling ok today, on 1L O2. Full ROS performed and neg except as noted above. - Medical History Past Medical History (Chronic Problems): Chronic Problems (Last Updated 09/18/18 @ 00:[address] Zhang Luo MD) Stage III chronic kidney disease (Chronic) Hypertension (Chronic) Allergies/Adverse Reactions: Allergies No Known Allergies Allergy (Verified 12/05/19 22:38) Home Medications: Ambulatory Orders Medication Instructions Recorded Losartan Potassium 100 mg PO DAILY 09/17/18 Amlodipine [Norvasc] 10 mg PO DAILY 12/06/19 - Social History SMOKING STATUS:: Former smoker Vital Signs Temp Pulse Resp BP Pulse Ox 97.6 F L 72 22 H 115/66 92 12/08/19 15:00 12/08/19 15:00 12/08/19 15:00 12/08/19 15:00 12/08/19 15:00 Oxygen Flow Rate (L/min) 1 Oxygen Delivery Method Nasal Cannula Weight: 107.2 kg Body Mass Index (BMI) 33.0 Microbiology Past 72 Hours 12/07/19 18:30 Urine Culture - Preliminary Urine Catheter - [place] Culture exhibits no growth. 12/05/19 22:46 Blood Culture - Preliminary Blood Culture (Wb) - Right Hand No growth in 48 hours. 12/05/19 22:32 Blood Culture - Preliminary Blood Culture (Wb) - Anticubital Left No growth in 48 hours. Laboratory Tests Past 24 Hrs 12/07/19 12/08/19 12/08/19 18:30 05:14 05:14 WBC 8.4 RBC 5.23 Hgb 16.2 Hct 48.8 MCV 93.3 MCH 31.0 MCHC 33.2 RDW Std Deviation 47.4 H RDW Coeff of Levi 13.7 Plt Count 155 MPV 12.2 H Immature Gran % (Auto) 0.400 Neut % (Auto) 82.7 H Lymph % (Auto) 11.5 L Mcdonald % (Auto) 3.8 Eos % (Auto) 1.5 Baso % (Auto) 0.1 Absolute Neuts (auto) 7.0 Absolute Lymphs (auto) 0.97 Nucleated RBC % 0 Differential Comment SCANNED Sodium 142 Potassium 3.8 Chloride 112 H Carbon Dioxide 22.0 Anion Gap 8 BUN 35 H Creatinine 1.63 H Estim Creat Clear Calc 42.30 Est GFR (MDRD) Af Amer 54 L Est GFR (MDRD) Non-Af 44 L BUN/Creatinine Ratio 21.5 H Glucose 132 H Calcium 8.6 Folate TSH Urine Color Yellow Urine Clarity Clear Urine pH 5.0 Ur Specific [place] 1.020 Urine Protein 100 H Urine Glucose (UA) Normal Urine Ketones Negative Urine Occult Blood 25 H Urine Nitrite Negative Urine Bilirubin Negative Urine Urobilinogen 1 H Ur Leukocyte Esterase Negative 12/08/19 05:14 WBC RBC Hgb Hct MCV MCH MCHC RDW Std Deviation RDW Coeff of Levi Plt Count MPV Immature Gran % (Auto) Neut % (Auto) Lymph % (Auto) Mcdonald % (Auto) Eos % (Auto) Baso % (Auto) Absolute Neuts (auto) Absolute Lymphs (auto) Nucleated RBC % Differential Comment Sodium Potassium Chloride Carbon Dioxide Anion Gap BUN Creatinine Estim Creat Clear Calc Est GFR (MDRD) Af Amer Est GFR (MDRD) Non-Af BUN/Creatinine Ratio Glucose Calcium Folate 12.90 TSH 0.79 Urine Color Urine Clarity Urine pH Ur Specific [place] Urine Protein Urine Glucose (UA) Urine Ketones Urine Occult Blood Urine Nitrite Urine Bilirubin Urine Urobilinogen Ur Leukocyte Esterase - Other Studies Radiology: [] reviewed Other Studies: [] Route of nutrition/ use of supplements: [] Nutritional Intake: [] IV Site: [] [place] Catheter: [] - Physical Exam General: Cooperative, No apparent distress HEENT: Atraumatic, PERRLA, EOMI Neck: Supple, No Nodes Lungs: Clear to auscultation, Diminished Cardiovascular: Regular rate, Regular Rhythm Abdomen: Soft, Non Tender, Non-Distended Extremities: No edema Skin: No rashes IV Site: Peripheral, without redness Musculoskeletal: No Tenderness to Palpation of Joints or Extremities Neurological: Cranial nerves II-XII grossly intact - Assessment/Plan Antibiotics: [] Assessment/Plan: [] Active and Suspected Problems (Last Updated 09/18/18 @ 00:[address] Zhang Luo MD) Acute hypoxic respiratory insufficiency (Acute) 2019 novel coronavirus disease (COVID-19) (Acute) Fever resolved, hypoxia improved, on therapeutic lovenox and dex. Doubt benefit from remdesivir at this point. Will follow, thank you
--- NOTE | 2019-12-08 19:25 | NURSING ---
po 87% on ra. Pt removed 02. Oxygen reappilied
[2019-12-08] MEDS: Mirtazapine 15 MG Tablet PO (19:58)
[2019-12-09] VITALS (12 sets, daily range): BP systolic 116–156; BP diastolic 61–82; PULSE 72–90; RESP 17–26; TEMP 36.4–38.1; O2SAT 80–94
--- NOTE | 2019-12-09 02:34 | NURSING ---
po 88% on 02 at 2lnc. 02 increased to 4lnc
--- NOTE | 2019-12-09 02:57 | NURSING ---
Pt bed exit went off. Pt in bathroom. austin cath out with balloon attached. Pt remains confused ox1 only. Pt had blood in toilet and all over the floor. pt cleaned up and linen changed. diaper appilied . will monitor
--- NOTE | 2019-12-09 03:58 | NURSING ---
pt attempts to get out of bed, this nurse sitting with pt. PT remains ox1 only
[2019-12-09 07:17] LABS: Anion Gap 7 (5-15); BUN 41 mg/dL (7-18); BUN/Creat Ratio 24.4 RATIO (10-20); Calcium,Total 8.6 mg/dL (8.5-10.1); Chloride 114 mmol/L (98-107); Creatinine, Serum 1.68 mg/dL (0.70-1.30); EST Glomerular Filtration Rate 43 mL/min (>60); Est Glom Filt Rate - Afr Amer 52 mL/min (>60); Estimated Creatinine Clearance 41.04 ml/min; Glucose 161 mg/dL (74-106); Magnesium 2.7 mg/dL (1.6-2.6); Phosphorus 3.3 mg/dL (2.5-4.9); Sodium Level 147 mmol/L (136-145)
--- NOTE | 2019-12-09 08:42 | NURSING ---
PT MOUTH-BREATHING
--- NOTE | 2019-12-09 08:49 | NURSING ---
PER REAMER HAND REPORT, PT PULLED JEREZ OUT BY SELF.
[2019-12-09] MEDS: 0.9% Saline Lock 10 ML Syringe IV (08:50)
[2019-12-09] MEDS: dexAMETHasone 10 MG/ML Vial 6 MG IV (08:50)
--- NOTE | 2019-12-09 08:54 | CASEMGMT ---
Social Work Note SW received message from [facility] [place] social scientist stating pt is client of [facility] but pt is not service connected so [place] will [place] pay for [place]F. [place] would only pay for hospice or Home Health Aides. MARKELL attempted to call Mónica at [place] transfer center, no answer, MARKELL left message with other staff to have Mónica call this worker back. Renetta Durham BIOMETRICS TECHNICIAN, MALWARE ANALYST
--- NOTE | 2019-12-09 08:55 | NURSING ---
PT ALLOWED ME TO GIVE HIM AM PILLS, BUT HE THEN CHEWED THEM UP & SPIT THEM OUT.
[2019-12-09 09:43] LABS: Vitamin B12 470 pg/mL (211-911)
--- NOTE | 2019-12-09 12:21 | CASEMGMT ---
Addendum entered by Renetta Durham 12/09/19 12:34: MARKELL also placed a call to [facility] [place] SW and left message inquiring if she knows of any [facility] connected SNF that are taking COVID+ pt's. Original Note: Social Work Note SW placed another call to Mónica, coordinator at [facility]. SW updated that Mónica is not in office today. Staff directed this worker to call [facility] outpatient clinic and speak to pt's LIANG Tucker ([phone] ext. [phone]) regarding discharge plans for pt. MARKELL placed a call to Caitlin at [facility] and left message to have her give this worker a call back regarding pt. SW should be able to get pt to [place] SNF under his Medicare while pt's family figure out needed paperwork for pt to become [facility] service connected. SW will need to speak with CM at [place] to determine which [place] SNF are accepting COVID+ pts at this time. If CM tells this worker that this worker is not able to get pt to [place] SNF then this worker will look for a non [place] SNF for pt. However, previous conversation with pt's family, they are wanting pt to go to SNF that is VA connected. MARKELL waiting for call back from pt's LIANG Tucker at [facility]. Renetta Durham MOTOR AND GENERATOR BRUSH MAKER, MUSIC TEACHER
--- NOTE | 2019-12-09 12:54 | PCM.PN.PUL ---
Patient Problems: Active and Suspected Problems (Last Updated 09/18/18 @ 00:[address] Zhang Luo MD) Acute hypoxic respiratory insufficiency (Acute) 2019 novel coronavirus disease (COVID-19) (Acute) Subjective: Patient did okay overnight. Patient feels subjectively improved compared to previous. Patient has been maintained on 4 L nasal cannula. Patient is reporting a nonproductive cough. - Physical Exam Vitals/I&O's: Vital Signs Temp Pulse Resp BP Pulse Ox 38.1 C H 73 22 H 132/61 H 89 12/09/19 08:34 12/09/19 08:34 12/09/19 08:43 12/09/19 08:34 12/09/19 08:43 Oxygen Flow Rate (L/min) 4 Oxygen Delivery Method Nasal Cannula Weight: 107.2 kg Body Mass Index (BMI) 33.0 Intake and Output for Last 24 Hours 12/07/19 12/08/19 12/09/19 23:59 23:59 23:59 Intake Total 1600 / 1600 860 / 860 Output Total 800 / 800 2500 / 2500 800 / 800 Balance 800 / 800 -1640 / -1640 -800 / -800 General: Alert, Confused, Disoriented, - - No conversational dyspnea. Barely opens his eyes to converse. HEENT: PERRLA, EOMI, Normocephalic, - - Head trauma appears to be healing well Oral: Moist Mucosa, No Gingival or Mucosal Lesions/ Ulcerations Neck: Supple, No JVD, No Nodes, Trachea Midline Lungs: No rhonchi, No wheeze, No rales, Diminished, - - Symmetric expansion. No dullness to percussion. Cardiovascular: Regular rate, Regular Rhythm, Normal S1, Normal S2, No murmurs, No rub noted, No Gallop Abdomen: Bowel Sounds Present, Soft, Non Tender, Non-Distended, Obese Extremities: No clubbing, No cyanosis, No edema, Capillary Refill Less than 3 Seconds Skin: No rashes, No breakdown Musculoskeletal: No Tenderness to Palpation of Joints or Extremities Lymphatic: No Cervical, Supraclavicular, or Inguinal Adenopathy Neurological: Cranial nerves II-XII grossly intact, Neuro grossly intact Psych/Mental Status: Alert and oriented to time, place, person, mood and affect Microbiology Past 72 Hours 12/07/19 18:30 Urine Catheter - [place] Urine Culture - Preliminary Culture exhibits no growth. 12/05/19 22:46 Blood Culture (Wb) - Right Hand Blood Culture - Preliminary No growth in 48 hours. 12/05/19 22:32 Blood Culture (Wb) - Anticubital Left Blood Culture - Preliminary No growth in 48 hours. Laboratory Results 12/08/19 05:14: Folate 12.90, TSH 0.79 12/09/19 06:06: Vitamin B12 470 12/09/19 06:06: Sodium 147 H, Potassium 4.0, Chloride 114 H, Carbon Dioxide 26.0, Anion Gap 7, BUN 41 H, Creatinine 1.68 H, Estim Creat Clear Calc 41.04, Est GFR (MDRD) Af Amer 52 L, Est GFR (MDRD) Non-Af 43 L, BUN/Creatinine Ratio 24.4 H, Glucose 161 H, Calcium 8.6, Phosphorus 3.3, Magnesium 2.7 H Current Medications Acetaminophen (Acetaminophen 325 Mg Tablet) 650 mg PO Q6H PRN PRN PRN Reason: Pain Score 1-10/Temp > 100.7 F Last Admin: 12/08/19 05:03 Dose: 650 mg Documented by: Albuterol Sulfate (Albuterol Ih 8.5 Gm (Proair) Inhaler (200 Puffs)) 2 puff INHALATION Q4H PRN PRN PRN Reason: Shortness of breath, wheezing Amlodipine Besylate (Amlodipine 10 Mg Tablet) 10 mg PO DAILY [facility] Last Admin: 12/09/19 08:55 Dose: Not Given Documented by: Dexamethasone Sodium Phosphate (Dexamethasone 10 Mg/Ml Vial) 6 mg IV DAILY [facility] Last Admin: 12/09/19 08:50 Dose: 6 mg Documented by: Enoxaparin Sodium (Enoxaparin 30 Mg/0.3 Ml Syringe) 30 mg SC DAILY [facility] Last Admin: 12/07/19 10:31 Dose: 30 mg Documented by: Hydralazine HCl (Hydralazine 20 Mg/Ml Vial) 10 mg IV Q6H PRN PRN PRN Reason: for SBP>160 Last Admin: 12/08/19 05:03 Dose: 10 mg Documented by: Sodium Chloride () 250 mls @ 15 mls/hr IV .[id number] PRN PRN Reason: Saline Flush Sodium Chloride () 250 mls @ 15 mls/hr IV .[id number] PRN PRN Reason: Additional IVPB Infusion Losartan Potassium (Losartan Potassium 100 Mg Tablet) 100 mg PO DAILY [facility] Last Admin: 12/09/19 08:54 Dose: Not Given Documented by: Mirtazapine (Mirtazapine 15 Mg Tablet) 15 mg PO QHS [facility] Last Admin: 12/08/19 19:58 Dose: 15 mg Documented by: Ondansetron HCl (Ondansetron 4 Mg/2 Ml Vial) 4 mg IV Q8H PRN PRN PRN Reason: NAUSEA/VOMITING Last Admin: 12/07/19 10:39 Dose: 4 mg Documented by: Senna/Docusate Sodium (Senna/Docusate Sodium 1 Tablet) 2 tablet PO BID PRN PRN PRN Reason: Constipation Sodium Chloride (0.9% Saline Lock 10 Ml Syringe) 10 - 40 ml IV UD PRN PRN Reason: SALINE FLUSH Last Admin: 12/09/19 08:50 Dose: 10 ml Documented by: Zolpidem Tartrate (Zolpidem Tartrate 5 Mg Tablet) 5 mg PO QHS PRN PRN PRN Reason: INSOMNIA Medical Necessity - Tobacco Use Smoking Status: Former smoker Assessment/Plan All Active Problems (Last Updated 09/18/18 @ 00:[address] Zhang Luo MD) Acute hypoxic respiratory insufficiency (Acute) 2019 novel coronavirus disease (COVID-19) (Acute) RECOMMENDATIONS: 1. Complete course of Decadron 6 mg daily x10 days. 2. No current indication for remdesivir or convalescent plasma in my opinion. 3. Continue Lovenox at current dose. Okay to transition to a 10 a inhibitor in my opinion 4. Wean supplemental oxygen to maintain saturations at or above 90%. 5. Encourage incentive spirometer use and mobilize patient as tolerated. IMPRESSIONS: 1. Acute hypoxemic respiratory insufficiency secondary to COVID-19 pneumonia The patient initially presented with symptoms in excess of 1 weeks duration, having tested positive on November 30. The patient is currently doing well from a respiratory perspective on minimal supplemental oxygen. Therefore, I believe it is reasonable to continue current supportive measures with supplemental oxygen to maintain saturations at or above 90%. Decadron will be continued 6 mg daily x10 days. Given that the patient did not have a significantly elevated D-dimer level, DVT prophylaxis Lovenox is appropriate. Some concern given patient's fall risk for protracted anticoagulation. Patient will likely require placement at discharge, per the hospitalist 2. Hypertension/advanced age Complicates care, management, recovery and prognosis. Continue home medications as indicated. Patient may require increased antihypertensive medications while on Decadron. Inpatient E&M: 36690 Subs Hosp L2
--- NOTE | 2019-12-09 13:19 | PN_ITS ---
Patient Problems: Active and Suspected Problems (Last Updated 09/18/18 @ 00:[address] Zhang Luo MD) Acute hypoxic respiratory insufficiency (Acute) 2019 novel coronavirus disease (COVID-19) (Acute) Reason for Visit: COVID 19 Subjective: Denies any complaints. Declined PO and meds today. Vitals/I&O's: Vital Signs Temp Pulse Resp BP Pulse Ox 38.1 C H 73 22 H 132/61 H 89 12/09/19 08:34 12/09/19 08:34 12/09/19 08:43 12/09/19 08:34 12/09/19 08:43 Oxygen Flow Rate (L/min) 4 Oxygen Delivery Method Nasal Cannula Weight: 107.2 kg Body Mass Index (BMI) 33.0 Intake and Output for Last 24 Hours 12/07/19 12/08/19 12/09/19 23:59 23:59 23:59 Intake Total 1600 / 1600 860 / 860 Output Total 800 / 800 2500 / 2500 800 / 800 Balance 800 / 800 -1640 / -1640 -800 / -800 General: Confused - pleasantly Neck: No Nodes, Thyroid Normal Size and Texture Lungs: Normal air movement, - - coarse breath sounds bilaterally. Cardiovascular: Regular rate, Regular Rhythm, Normal S1, Normal S2 Abdomen: Bowel Sounds Present, Soft, Non Tender, Non-Distended Extremities: No edema, No Calf Tenderness Microbiology Past 72 Hours 12/07/19 18:30 Urine Catheter - [place] Urine Culture - Preliminary Culture exhibits no growth. 12/05/19 22:46 Blood Culture (Wb) - Right Hand Blood Culture - Preliminary No growth in 48 hours. 12/05/19 22:32 Blood Culture (Wb) - Anticubital Left Blood Culture - Preli minary No growth in 48 hours. Laboratory Results 12/08/19 05:14: Folate 12.90, TSH 0.79 12/09/19 06:06: Vitamin B12 470 12/09/19 06:06: Sodium 147 H, Potassium 4.0, Chloride 114 H, Carbon Dioxide 26.0, Anion Gap 7, BUN 41 H, Creatinine 1.68 H, Estim Creat Clear Calc 41.04, Est GFR (MDRD) Af Amer 52 L, Est GFR (MDRD) Non-Af 43 L, BUN/Creatinine Ratio 24.4 H, Glucose 161 H, Calcium 8.6, Phosphorus 3.3, Magnesium 2.7 H Current Medications Acetaminophen (Acetaminophen 325 Mg Tablet) 650 mg PO Q6H PRN PRN PRN Reason: Pain Score 1-10/Temp > 100.7 F Last Admin: 12/08/19 05:03 Dose: 650 mg Documented by: Albuterol Sulfate (Albuterol Ih 8.5 Gm (Proair) Inhaler (200 Puffs)) 2 puff INHALATION Q4H PRN PRN PRN Reason: Shortness of breath, wheezing Amlodipine Besylate (Amlodipine 10 Mg Tablet) 10 mg PO DAILY [facility] Last Admin: 12/09/19 08:55 Dose: Not Given Documented by: Dexamethasone Sodium Phosphate (Dexamethasone 10 Mg/Ml Vial) 6 mg IV DAILY [facility] Last Admin: 12/09/19 08:50 Dose: 6 mg Documented by: Enoxaparin Sodium (Enoxaparin 30 Mg/0.3 Ml Syringe) 30 mg SC DAILY [facility] Last Admin: 12/07/19 10:31 Dose: 30 mg Documented by: Hydralazine HCl (Hydralazine 20 Mg/Ml Vial) 10 mg IV Q6H PRN PRN PRN Reason: for SBP>160 Last Admin: 12/08/19 05:03 Dose: 10 mg Documented by: Sodium Chloride () 250 mls @ 15 mls/hr IV .[id number] PRN PRN Reason: Saline Flush Sodium Chloride () 250 mls @ 15 mls/hr IV .[id number] PRN PRN Reason: Additional IVPB Infusion Losartan Potassium (Losartan Potassium 100 Mg Tablet) 100 mg PO DAILY [facility] Last Admin: 12/09/19 08:54 Dose: Not Given Documented by: Mirtazapine (Mirtazapine 15 Mg Tablet) 15 mg PO QHS [facility] Last Admin: 12/08/19 19:58 Dose: 15 mg Documented by: Ondansetron HCl (Ondansetron 4 Mg/2 Ml Vial) 4 mg IV Q8H PRN PRN PRN Reason: NAUSEA/VOMITING Last Admin: 12/07/19 10:39 Dose: 4 mg Documented by: Senna/Docusate Sodium (Senna/Docusate Sodium 1 Tablet) 2 tablet PO BID PRN PRN PRN Reason: Constipation Sodium Chloride (0.9% Saline Lock 10 Ml Syringe) 10 - 40 ml IV UD PRN PRN Reason: SALINE FLUSH Last Admin: 12/09/19 08:50 Dose: 10 ml Documented by: Zolpidem Tartrate (Zolpidem Tartrate 5 Mg Tablet) 5 mg PO QHS PRN PRN PRN Reason: INSOMNIA Medical Necessity - Tobacco Use Smoking Status: Former smoker Assessment/Plan All Active Problems (Last Updated 09/18/18 @ 00:[address] Zhang Luo MD) Acute hypoxic respiratory insufficiency (Acute) 2019 novel coronavirus disease (COVID-19) (Acute) 1. acute COVID-19 negative * on IV dexamethasone day 4 * wean oxygen as tolerated 2. acute hypoxic respiratory insufficiency * wean o2 as tolerated 3. Debility * apparently patient has been decline since his 's last year * DW patient's dtr, who states that she does not want him in a SNF. I said he does not have to, but could go home with either she or her brother. Awaiting on further clarification if this is feasible from them 4. possible dementia * forgetful and this has been progressive, per the patient's dtr. * dw patient's dtr, recommend outpt geriatric evaluation for formal dementia eval * complicated by likely underlying depression, which he has been started on mirtazapine. * she is upset that he is not himself. I told her it is likely multifactorial in elderly male +/- dementia, hospitalized, meds (steroids) +/- sleep deprivation. She expresses concern that we are missing something. She referenced a family member who of what sounds like a latent brain bleed. I told her I could order another head CT, but I felt it would be of low yield. She did not press for it to be done. * She wanted a geriatric evaluation for dementia evaluation. I told her that a dementia evaluation in patient would not adequately assess dementia and again advised outpt evaluation with geriatrics. * She is concerned that he has given up and is concerned that he should be hospice. I told her I cannot qualify him as hospice at this time and I do not expect him to continue not eating. I did recommend palliative care. No response from her about involving palliative care. * She asked to call her brother, Marino. I called him and left a message. 5. VTE prophylaxis: LMWH Greater than 35 minutes of which greater than 50% of the time was counseling the patient's dtr about dementia, work up and pt's current status. Inpatient E&M: 88643 Subs Hosp L3
--- NOTE | 2019-12-09 13:50 | CT_ITS ---
STUDY: CT BRAIN WITHOUT CONTRAST REASON FOR EXAM: Male, 74 years old. Altered mental status suspected dementia. RADIATION DOSAGE (If Supplied By Facility): CTDIvol = ( 44.99 ) mGy, DLP = ( 829.85 ) mGycm TECHNIQUE: Transaxial CT imaging of the brain was performed without administration of intravenous contrast material. Individualized dose optimization techniques were used for this CT. COMPARISON: 12/07/2019. FINDINGS: Normal soft tissue structures. Normal calvarium. Normal size ventricles and extra-axial spaces for the patient''s age. There are areas of decreased attenuation within the white matter tracts of the supratentorial brain, consistent with microvascular disease changes. There are small punctate calcifications of the basal ganglia which are seen in the aging brain as a normal variant. Normal brainstem. Normal cerebellum. There is no intracranial hemorrhage. There are no findings of an acute ischemic infarction. Normal visualized paranasal sinuses. CT/Brain/Head without Contrast IMPRESSION: Chronic involutional changes without evidence of acute intracranial or calvarial abnormality. There is no interval change. Electronically Signed: Olegario Figueroa DO at 16:02 EDT Tel [phone], Service support ,
--- NOTE | 2019-12-09 14:45 | RAD_ITS ---
STUDY: X-RAY - ABDOMEN/PELVIS REASON FOR EXAM: Male, 74 years old. Abdominal pain. COVID 19 positive. TECHNIQUE: AP supine and upright views of the abdomen and pelvis. COMPARISON: None. FINDINGS: There is marked elevation right hemidiaphragm. There is diffuse infiltrate throughout the left perihilar region lower lobe. There is density along the right horizontal fissure and right upper lobe. The right lung base and right middle lobe appear clear. There is distended colon extending upward under the right hemidiaphragm. This is thought to be the sigmoid siphon. The proximal colon is unremarkable. There is no evidence of rectal air or definite mass.. There is no demonstrated free abdominal air. The visualized liver, spleen and kidneys are grossly normal in size and morphology. Normal soft tissue structures. There are diffuse degenerative changes of the visualized lumbar spine. RAD/Abd Inc Decub and/or Erect IMPRESSION: 1. Findings most suggestive of a distal colonic obstruction or mass with sigmoid dilatation. This does not have the appearance of a sigmoid volvulus, although volvulus cannot be completely ruled out. 2. Bilateral pulmonary infiltrates, as above. Electronically Signed: Olegario Figueroa DO at 18:14 EDT Tel [phone], Service support ,
--- NOTE | 2019-12-09 15:30 | CASEMGMT ---
Social Work Note MARKELL received call from Juan F Hardy at [facility]. Juan F states that since pt is not service connected at this time, [facility] will not [facility] for pt to admit to SNF. MARKELL explained to Juan F that this worker was going to try to get pt to SNF under Medicare that is VA connected so then pt can remain at VA connected facility for [facility] care if needed. Juan F states that would not be possible as it could take up to a year to get pt service connected. Juan F states that the recommendation is for pt to admit to SNF under Medicare and then once pt is service connected then the [facility] could transfer pt to a different ECF that is VA connected. Juan F states that [facility], who was VA connected, is on hold for [facility] patient's at this time. MARKELL placed a call to pt's daughter Bibi to discuss discharge planning. Bibi asked this worker if this worker had spoken to the physician lately as pt is not eating or drinking and pt is getting more scans/tests done of the head/stomach. Bibi states that there was also talk of Hospice with pt. Bibi states that pt is having a lot of things going on at this time and she would like more clarification on what is going on with pt. Bibi also states that pt does qualify for [facility] services and is covered and there was a disconnect with the [facility]. Bibi states that her brother Marino is trying to get the VA paperwork figured out for pt. MARKELL asked Bibi if plan would be to still get pt to a SNF or ECF with Hospice and Bibi states that the plan will be to get pt home. Bibi states she doesn't want pt in SNF and she knows pt doesn't want to be in a SNF. Bibi states it would either be home with Hospice or home without hospice. Bibi states that she has family that would be willing to stay with pt / at her brother's home. Bibi states that she thinks pt is giving up, and wants to be with his . Pt's about 15 months ago. Bibi states pt is not eating or drinking. MARKELL informed pt that this worker will continue to follow along and this worker and RN CM will remain available to assist with discharge planning. SW to follow for possible Hospice/Palliative Care. Plan: TBD. Pt's family is now stating they want to take pt home at discharge. Renetta Durham [employer], DENTAL HYGIENIST
--- NOTE | 2019-12-09 15:39 | PN.ID_ITS ---
Patient Problems: Active and Suspected Problems (Last Updated 09/18/18 @ 00:[address] Zhang Luo MD) Acute hypoxic respiratory insufficiency (Acute) 2019 novel coronavirus disease (COVID-19) (Acute) Subjective: Feeling ok, temps improved. - Physical Exam Vitals/I&O's: Vital Signs Temp Pulse Resp BP Pulse Ox 97.6 F L 72 20 H 136/72 H 86 12/09/19 14:30 12/09/19 14:30 12/09/19 14:30 12/09/19 14:30 12/09/19 14:30 Oxygen Flow Rate (L/min) 4 Oxygen Delivery Method Nasal Cannula Weight: 107.2 kg Body Mass Index (BMI) 33.0 Intake and Output for Last 24 Hours 12/07/19 12/08/19 12/09/19 23:59 23:59 23:59 Intake Total 1600 / 1600 860 / 860 60 / 60 Output Total 800 / 800 2500 / 2500 800 / 800 Balance 800 / 800 -1640 / -1640 -740 / -740 General: No apparent distress, Lethargic Lungs: Diminished Cardiovascular: Regular rate, Regular Rhythm Abdomen: Soft, Non Tender, Non-Distended Skin: No rashes Microbiology Past 72 Hours 12/07/19 18:30 Urine Catheter - [place] Urine Culture - Preliminary Culture exhibits no growth. 12/05/19 22:46 Blood Culture (Wb) - Right Hand Blood Culture - Preliminary No growth in 48 hours. 12/05/19 22:32 Blood Culture (Wb) - Anticubital Left Blood Culture - Preliminary No growth in 48 hours. Laboratory Results 12/08/19 05:14: Folate 12.90, TSH 0.79 12/09/19 06:06: Vitamin B12 470 12/09/19 06:06: Sodium 147 H, Potassium 4.0, Chloride 114 H, Carbon Dioxide 26.0, Anion Gap 7, BUN 41 H, Creatinine 1.68 H, Estim Creat Clear Calc 41.04, Est GFR (MDRD) Af Amer 52 L, Est GFR (MDRD) Non-Af 43 L, BUN/Creatinine Ratio 24.4 H, Glucose 161 H, Calcium 8.6, Phosphorus 3.3, Magnesium 2.7 H Current Medications Acetaminophen (Acetaminophen 325 Mg Tablet) 650 mg PO Q6H PRN PRN PRN Reason: Pain Score 1-10/Temp > 100.7 F Last Admin: 12/08/19 05:03 Dose: 650 mg Documented by: Albuterol Sulfate (Albuterol Ih 8.5 Gm (Proair) Inhaler (200 Puffs)) 2 puff INHALATION Q4H PRN PRN PRN Reason: Shortness of breath, wheezing Amlodipine Besylate (Amlodipine 10 Mg Tablet) 10 mg PO DAILY [facility] Last Admin: 12/09/19 08:55 Dose: Not Given Documented by: Dexamethasone Sodium Phosphate (Dexamethasone 10 Mg/Ml Vial) 6 mg IV DAILY [facility] Last Admin: 12/09/19 08:50 Dose: 6 mg Documented by: Enoxaparin Sodium (Enoxaparin 30 Mg/0.3 Ml Syringe) 30 mg SC DAILY [facility] Last Admin: 12/07/19 10:31 Dose: 30 mg Documented by: Hydralazine HCl (Hydralazine 20 Mg/Ml Vial) 10 mg IV Q6H PRN PRN PRN Reason: for SBP>160 Last Admin: 12/08/19 05:03 Dose: 10 mg Documented by: Sodium Chloride () 250 mls @ 15 mls/hr IV .[id number] PRN PRN Reason: Saline Flush Sodium Chloride () 250 mls @ 15 mls/hr IV .[id number] PRN PRN Reason: Additional IVPB Infusion Losartan Potassium (Losartan Potassium 100 Mg Tablet) 100 mg PO DAILY [facility] Last Admin: 12/09/19 08:54 Dose: Not Given Documented by: Mirtazapine (Mirtazapine 15 Mg Tablet) 15 mg PO QHS [facility] Last Admin: 12/08/19 19:58 Dose: 15 mg Documented by: Ondansetron HCl (Ondansetron 4 Mg/2 Ml Vial) 4 mg IV Q8H PRN PRN PRN Reason: NAUSEA/VOMITING Last Admin: 12/07/19 10:39 Dose: 4 mg Documented by: Senna/Docusate Sodium (Senna/Docusate Sodium 1 Tablet) 2 tablet PO BID PRN PRN PRN Reason: Constipation Sodium Chloride (0.9% Saline Lock 10 Ml Syringe) 10 - 40 ml IV UD PRN PRN Reason: SALINE FLUSH Last Admin: 12/09/19 08:50 Dose: 10 ml Documented by: Zolpidem Tartrate (Zolpidem Tartrate 5 Mg Tablet) 5 mg PO QHS PRN PRN PRN Reason: INSOMNIA Medical Necessity - Tobacco Use Smoking Status: Former smoker Route of nutrition/ use of supplements: [] Nutritional Intake: [] IV Site: [] [place] Catheter: [] - Assessment/Plan Antibiotics: [] Assessment/Plan: [] Active and Suspected Problems (Last Updated 09/18/18 @ 00:[address] Zhang Luo MD) Acute hypoxic respiratory insufficiency (Acute) 2019 novel coronavirus disease (COVID-19) (Acute) Fever resolved, hypoxia improved, on therapeutic lovenox and dex. Doubt benefit from remdesivir at this point. Mental status remains diminished. Will follow
--- NOTE | 2019-12-09 17:10 | NURSING ---
TEXT TO DR PRESLEY LETTING HIM KNOW THAT PT REFUSED FLEETS ENEMA.
[2019-12-10] VITALS (17 sets, daily range): BP systolic 104–148; BP diastolic 49–76; PULSE 64–89; RESP 18–28; TEMP 36.2–37.2; O2SAT 81–97
--- NOTE | 2019-12-10 01:00 | NURSING ---
pt confused oriented to self only, needs airvo but is removing it and continuous pulse ox, explanation, reassurance, reorientation not effective, pt physiological needs met, repositioned in bed not effective. pt hitting at staff when trying to reapply airvo, primary rn notifying 2 staff in with pt pt includes this rn to keep airvo on pt .
[2019-12-10] MEDS: Haloperidol Lactate 5 MG/ML Vial 2 MG IM ×4 (01:19→22:59)
--- NOTE | 2019-12-10 01:25 | NURSING ---
pt remains confused gave haldol im per order. staff remain in room with pt. airvo and continuous pox on. bed exit on
--- NOTE | 2019-12-10 09:24 | PCM.HOSP.N ---
Hospitalist Note Notified by nursing to call son, Marino. He stated he was upset that he was told that the patient could possibly be intubated. I asked him who told him that and he said it didn't matter. (on review of vitals his oxygen requirements since yesterday have gone up and is currently on Airvo). He stated his sister called the patient yesterday and said the patient was confused. He asked about the side effects of the medication that the patient is on, specifically confusion. I told him that the dexamethasone and mirtazapine can cause confusion. He said to stop those medications, but did not offer alternatives. He disputes the neurology evaluation, more specifically, call [facility] on dementia (though their note does not specifically say the patient has dementia). I again reiterated, that it was a concern that the patient had underlying dementia. He demanded that service be transferred to Dr. Mendieta. I informed him that she is off service this week. He asked why. I again stated that she is off service, but that I would reach out to one of my other partners to assume the patient's care. He demanded to be called every 2 hours on the patient's condition. Marino was yelling at me during much of this conversation and referred to me by my first name. I discussed the case with Dr. Gonsalez, who will take over the patient's care.
[2019-12-10] MEDS: 0.9% Saline Lock 10 ML Syringe IV (09:33)
[2019-12-10] MEDS: Losartan Potassium 100 MG Tablet PO (09:33)
[2019-12-10] MEDS: amLODIPine 10 MG Tablet PO (09:33)
[2019-12-10] MEDS: dexAMETHasone 10 MG/ML Vial 6 MG IV (09:33)
--- NOTE | 2019-12-10 11:05 | NURSING ---
SPOKE W/DAUGHTER VIA PHONE AT 0800 THIS AM, SHE WAS REQUESTING UPDATE. THIS NURSE INFORMED HER THAT PATIENT GOT COMBATIVE LAST NIGHT W/NURSING SO WAS GIVEN X1 DOSE OF HALDOL. AFTER HALDOL, PATIENT RESTED WELL. ALSO INFORMED HER THAT PATIENT WAS ON AIRVO TO HELP W/BREATHING BUT WAS AT THE MAX SETTING SO IF PATIENT WORSENED, NEXT STEP WOULD BE INTUBATION. STATES UNDERSTANDING.
--- NOTE | 2019-12-10 11:08 | NURSING ---
AT 0810, RECEIVED A CALL FROM SON, JULIANE. HE WAS UPSET THAT HIS FATHER WAS GOING TO BE INTUBATED. I EXPLAINED TO HIM THE CONVERSATION I HAD HAD WITH HIS SISTER ABOUT PATIENT BEING ON THE MAX SETTING OF AIRVO & IF THE PATIENT WORSENED, THEN THE NEXT STEP WOULD BE INTUBATION. AT THIS TIME, AIRVO IS EFFECTIVE LONG PATIENT LEAVES IT IN PLACE. SON ASKED WHAT HE WOULD HAVE TO DO TO HAVE THE PATIENT TRANSFERRED TO ANOTHER FACILITY. INFORMED HIM THAT WOULD HAVE TO BE DONE THROUGH THE PHYSICIAN. REQUESTED THAT HE GET A PHONE CALL FROM . MESSAGE SENT TO ABOUT THIS CONVERSATION.
--- NOTE | 2019-12-10 11:40 | NURSING ---
Patient agitated. Will not leave Airvo on and will not drink contrast. Taking airvo off and pulse ox drops in 70's. Concern with patient ability to go to CT scan and maintain precautions and pulse ox. Also fact no contrast in patient. Spoke to Dr. Mercado and he will cancel at this time and speak to family later.
--- NOTE | 2019-12-10 14:52 | PN_ITS ---
Patient Problems: Active and Suspected Problems (Last Updated 09/18/18 @ 00:[address] Zhang Luo MD) Acute hypoxic respiratory insufficiency (Acute) 2019 novel coronavirus disease (COVID-19) (Acute) Subjective: Still very delirious and does not follow instructions about keeping the air blowing on. No significant signs of abdominal pain at this time and he is not taking the contrast for CT scan. Vitals/I&O's: Vital Signs Temp Pulse Resp BP Pulse Ox 98.0 F 79 28 H 128/64 H 97 12/10/19 11:45 12/10/19 12:37 12/10/19 12:37 12/10/19 11:45 12/10/19 12:37 Oxygen Flow Rate (L/min) 93 Oxygen Delivery Method Airvo Weight: 236 lb 5.369 oz Body Mass Index (BMI) 33.0 Intake and Output for Last 24 Hours 12/08/19 12/09/19 12/10/19 23:59 23:59 23:59 Intake Total 860 / 860 60 / 60 100 / 100 Output Total 2500 / 2500 800 / 800 Balance -1640 / -1640 -740 / -740 100 / 100 General: No apparent distress, Confused, Disoriented, Non-Cooperative HEENT: Atraumatic, PERRLA, EOMI, Normocephalic Oral: Moist Mucosa Neck: Supple, No JVD Lungs: Normal air movement, No rhonchi, No wheeze, No rales, Diminished Cardiovascular: Regular rate, Regular Rhythm, Normal S1, Normal S2, No murmurs Abdomen: Soft, Non Tender, Non-Distended, No Hepato-splenomegaly Extremities: No edema, Capillary Refill Less than 3 Seconds Skin: No rashes, No breakdown Neurological: Neuro grossly intact, Sensory exam intact to light touch and pain Psych/Mental Status: Impulsive Microbiology Past 72 Hours 12/07/19 18:30 Urine Catheter - [place] Urine Culture - Final Culture exhibits no growth. 12/05/19 22:46 Blood Culture (Wb) - Right Hand Blood Culture - Preliminary No growth in 48 hours. 12/05/19 22:32 Blood Culture (Wb) - Anticubital Left Blood Culture - Preliminary No growth in 48 hours. Current Medications Acetaminophen (Acetaminophen 325 Mg Tablet) 650 mg PO Q6H PRN PRN PRN Reason: Pain Score 1-10/Temp > 100.7 F Last Admin: 12/08/19 05:03 Dose: 650 mg Documented by: Albuterol Sulfate (Albuterol Ih 8.5 Gm (Proair) Inhaler (200 Puffs)) 2 puff INHALATION Q4H PRN PRN PRN Reason: Shortness of breath, wheezing Amlodipine Besylate (Amlodipine 10 Mg Tablet) 10 mg PO DAILY [facility] Last Admin: 12/10/19 09:33 Dose: 10 mg Documented by: Dexamethasone Sodium Phosphate (Dexamethasone 10 Mg/Ml Vial) 6 mg IV DAILY [facility] Last Admin: 12/10/19 09:33 Dose: 6 mg Documented by: Enoxaparin Sodium (Enoxaparin 30 Mg/0.3 Ml Syringe) 30 mg SC DAILY [facility] Last Admin: 12/07/19 10:31 Dose: 30 mg Documented by: Hydralazine HCl (Hydralazine 20 Mg/Ml Vial) 10 mg IV Q6H PRN PRN PRN Reason: for SBP>160 Last Admin: 12/08/19 05:03 Dose: 10 mg Documented by: Sodium Chloride () 250 mls @ 15 mls/hr IV .[id number] PRN PRN Reason: Saline Flush Sodium Chloride () 250 mls @ 15 mls/hr IV .[id number] PRN PRN Reason: Additional IVPB Infusion Losartan Potassium (Losartan Potassium 100 Mg Tablet) 100 mg PO DAILY [facility] Last Admin: 12/10/19 09:33 Dose: 100 mg Documented by: Mirtazapine (Mirtazapine 15 Mg Tablet) 15 mg PO QHS [facility] Last Admin: 12/09/19 23:28 Dose: Not Given Documented by: Ondansetron HCl (Ondansetron 4 Mg/2 Ml Vial) 4 mg IV Q8H PRN PRN PRN Reason: NAUSEA/VOMITING Last Admin: 12/07/19 10:39 Dose: 4 mg Documented by: Quetiapine Fumarate (Quetiapine 25 Mg Tablet) 25 mg PO QHS [facility] Senna/Docusate Sodium (Senna/Docusate Sodium 1 Tablet) 2 tablet PO BID PRN PRN PRN Reason: Constipation Sodium Chloride (0.9% Saline Lock 10 Ml Syringe) 10 - 40 ml IV UD PRN PRN Reason: SALINE FLUSH Last Admin: 12/10/19 09:33 Dose: 10 ml Documented by: Zolpidem Tartrate (Zolpidem Tartrate 5 Mg Tablet) 5 mg PO QHS PRN PRN PRN Reason: INSOMNIA STROKE Vital Signs/Narrative: Vital Signs Temp Pulse Resp BP Pulse Ox 12/10/19 12:37 79 28 H 97 12/10/19 11:45 98.0 F 89 24 H 128/64 H Medical Necessity - Tobacco Use Smoking Status: Former smoker Assessment/Plan All Active Problems (Last Updated 09/18/18 @ 00:[address] Zhang Luo MD) Acute hypoxic respiratory insufficiency (Acute) 2019 novel coronavirus disease (COVID-19) (Acute) 1. Acute hypoxic respiratory insufficiency secondary to COVID-19 pneumonia/metabolic encephalopathy/CKD 3 -Delirium likely secondary to the Decadron and his disease process -Continue with Decadron, have discussed the case thoroughly with the family -He had to be given another dose of Haldol this afternoon secondary to combativeness and not keeping his BiPAP or airflow on. -We will add Seroquel 25 mg p.o. nightly -Family agrees that there is probably mild dementia at baseline -No benefit from remdesivir at this point, or convalescent plasma -Creatinine is at baseline, will continue to monitor 2. Constipation versus volvulus -There is some concern about having a volvulus based on abdominal x-ray however secondary to Covid could not obtain a barium enema and because of his delirium he would not drink contrast for CT scan -Based on physical exam, his abdomen is nontender nondistended, he is afebrile therefore we will provide him with a stool softener and see if this is constipation. 3. HTN -Blood pressures are stable -Continue with his home blood pressure medications DVT: Lovenox Inpatient E&M: 39470 Subs Hosp L2
--- NOTE | 2019-12-10 15:48 | PCM.PN.ID ---
Patient Problems: Active and Suspected Problems (Last Updated 09/18/18 @ 00:[address] Zhang Luo MD) Acute hypoxic respiratory insufficiency (Acute) 2019 novel coronavirus disease (COVID-19) (Acute) Subjective: Minimal responsiveness, no fever - Physical Exam Vitals/I&O's: Vital Signs Temp Pulse Resp BP Pulse Ox 98.0 F 79 28 H 128/64 H 97 12/10/19 11:45 12/10/19 12:37 12/10/19 12:37 12/10/19 11:45 12/10/19 12:37 Oxygen Flow Rate (L/min) 93 Oxygen Delivery Method Airvo Weight: 107.2 kg Body Mass Index (BMI) 33.0 Intake and Output for Last 24 Hours 12/08/19 12/09/19 12/10/19 23:59 23:59 23:59 Intake Total 860 / 860 60 / 60 100 / 100 Output Total 2500 / 2500 800 / 800 Balance -1640 / -1640 -740 / -740 100 / 100 General: No apparent distress, Lethargic Lungs: Diminished Cardiovascular: Regular rate, Regular Rhythm Abdomen: Soft, Non Tender, Non-Distended Skin: No rashes Microbiology Past 72 Hours 12/07/19 18:30 Urine Catheter - [place] Urine Culture - Final Culture exhibits no growth. 12/05/19 22:46 Blood Culture (Wb) - Right Hand Blood Culture - Preliminary No growth in 48 hours. 12/05/19 22:32 Blood Culture (Wb) - Anticubital Left Blood Culture - Preliminary No growth in 48 hours. Current Medications Acetaminophen (Acetaminophen 325 Mg Tablet) 650 mg PO Q6H PRN PRN PRN Reason: Pain Score 1-10/Temp > 100.7 F Last Admin: 12/08/19 05:03 Dose: 650 mg Documented by: Albuterol Sulfate (Albuterol Ih 8.5 Gm (Proair) Inhaler (200 Puffs)) 2 puff INHALATION Q4H PRN PRN PRN Reason: Shortness of breath, wheezing Amlodipine Besylate (Amlodipine 10 Mg Tablet) 10 mg PO DAILY [facility] Last Admin: 12/10/19 09:33 Dose: 10 mg Documented by: Dexamethasone Sodium Phosphate (Dexamethasone 10 Mg/Ml Vial) 6 mg IV DAILY [facility] Last Admin: 10/28/20 09:33 Dose: 6 mg Documented by: Enoxaparin Sodium (Enoxaparin 30 Mg/0.3 Ml Syringe) 30 mg SC DAILY [facility] Last Admin: 12/07/19 10:31 Dose: 30 mg Documented by: Hydralazine HCl (Hydralazine 20 Mg/Ml Vial) 10 mg IV Q6H PRN PRN PRN Reason: for SBP>160 Last Admin: 12/08/19 05:03 Dose: 10 mg Documented by: Sodium Chloride () 250 mls @ 15 mls/hr IV .[id number] PRN PRN Reason: Saline Flush Sodium Chloride () 250 mls @ 15 mls/hr IV .[id number] PRN PRN Reason: Additional IVPB Infusion Losartan Potassium (Losartan Potassium 100 Mg Tablet) 100 mg PO DAILY [facility] Last Admin: 12/10/19 09:33 Dose: 100 mg Documented by: Mirtazapine (Mirtazapine 15 Mg Tablet) 15 mg PO QHS [facility] Last Admin: 12/09/19 23:28 Dose: Not Given Documented by: Ondansetron HCl (Ondansetron 4 Mg/2 Ml Vial) 4 mg IV Q8H PRN PRN PRN Reason: NAUSEA/VOMITING Last Admin: 12/07/19 10:39 Dose: 4 mg Documented by: Quetiapine Fumarate (Quetiapine 25 Mg Tablet) 25 mg PO QHS [facility] Senna/Docusate Sodium (Senna/Docusate Sodium 1 Tablet) 2 tablet PO BID PRN PRN PRN Reason: Constipation Sodium Chloride (0.9% Saline Lock 10 Ml Syringe) 10 - 40 ml IV UD PRN PRN Reason: SALINE FLUSH Last Admin: 12/10/19 09:33 Dose: 10 ml Documented by: Zolpidem Tartrate (Zolpidem Tartrate 5 Mg Tablet) 5 mg PO QHS PRN PRN PRN Reason: INSOMNIA Medical Necessity - Tobacco Use Smoking Status: Former smoker Route of nutrition/ use of supplements: [] Nutritional Intake: [] IV Site: [] [place] Catheter: [] - Assessment/Plan Antibiotics: [] Assessment/Plan: [] Active and Suspected Problems (Last Updated 09/18/18 @ 00:[address] Zhang Luo MD) Acute hypoxic respiratory insufficiency (Acute) 2019 novel coronavirus disease (COVID-19) (Acute) Fever resolved, on prophylactic lovenox and dex. Doubt benefit from remdesivir at this point. Mental status remains diminished. Still high O2 reqs. Will follow
--- NOTE | 2019-12-10 16:14 | PN_ITS ---
Patient Problems: Active and Suspected Problems (Last Updated 09/18/18 @ 00:[address] Zhang Luo MD) Acute hypoxic respiratory insufficiency (Acute) 2019 novel coronavirus disease (COVID-19) (Acute) Subjective: Patient has done okay over the last 24 hours. Patient is still requiring high flow nasal cannula at high FiO2 requirements. Patient did have some agitation and had to be treated with Haldol just before my evaluation. Patient was found with high flow nasal cannula out of position and saturating 86%. This was r eplaced with improvements. Patient was denying any pain, but did require physical stimulus to wake up. Patient did not have any signs or symptoms of respiratory distress. - Physical Exam Vitals/I&O's: Vital Signs Temp Pulse Resp BP Pulse Ox 36.2 C L 71 18 118/68 91 12/10/19 15:52 12/10/19 15:52 12/10/19 15:52 12/10/19 15:52 12/10/19 15:57 Oxygen Flow Rate (L/min) 93 Oxygen Delivery Method Airvo Weight: 107.2 kg Body Mass Index (BMI) 33.0 Intake and Output for Last 24 Hours 12/08/19 12/09/19 12/10/19 23:59 23:59 23:59 Intake Total 860 / 860 60 / 60 100 / 100 Output Total 2500 / 2500 800 / 800 Balance -1640 / -1640 -740 / -740 100 / 100 General: Confused, Disoriented, Lethargic, - - Did follow commands HEENT: PERRLA, EOMI, Normocephalic, - - Head wound is healing appropriately Oral: No Gingival or Mucosal Lesions/ Ulcerations, Dry Mucosa Neck: Supple, No JVD, No Nodes, Trachea Midline Lungs: No rhonchi, No wheeze, No rales, Diminished, - - Symmetric expansion Cardiovascular: Regular rate, Regular Rhythm, Normal S1, Normal S2, No murmurs, No rub noted, No Gallop Abdomen: Bowel Sounds Present, Soft, Non Tender, Non-Distended Extremities: No clubbing, No cyanosis, No edema, Capillary Refill Less than 3 Seconds, - - Radial pulses palpable Skin: - - Wounds are healing well Musculoskeletal: No Tenderness to Palpation of Joints or Extremities Lymphatic: No Cervical, Supraclavicular, or Inguinal Adenopathy Neurological: - - Not cooperative with the exam, but did nod his head appropriately to questioning Psych/Mental Status: Flat Affect Microbiology Past 72 Hours 12/07/19 18:30 Urine Catheter - [place] Urine Culture - Final Culture exhibits no growth. 12/05/19 22:46 Blood Culture (Wb) - Right Hand Blood Culture - Preliminary No growth in 48 hours. 12/05/19 22:32 Blood Culture (Wb) - Anticubital Left Blood Culture - Preliminary No growth in 48 hours. Current Medications Acetaminophen (Acetaminophen 325 Mg Tablet) 650 mg PO Q6H PRN PRN PRN Reason: Pain Score 1-10/Temp > 100.7 F Last Admin: 12/08/19 05:03 Dose: 650 mg Documented by: Albuterol Sulfate (Albuterol Ih 8.5 Gm (Proair) Inhaler (200 Puffs)) 2 puff INHALATION Q4H PRN PRN PRN Reason: Shortness of breath, wheezing Amlodipine Besylate (Amlodipine 10 Mg Tablet) 10 mg PO DAILY [facility] Last Admin: 12/10/19 09:33 Dose: 10 mg Documented by: Dexamethasone Sodium Phosphate (Dexamethasone 10 Mg/Ml Vial) 6 mg IV DAILY [facility] Last Admin: 12/10/19 09:33 Dose: 6 mg Documented by: Enoxaparin Sodium (Enoxaparin 30 Mg/0.3 Ml Syringe) 30 mg SC DAILY [facility] Last Admin: 12/07/19 10:31 Dose: 30 mg Documented by: Hydralazine HCl (Hydralazine 20 Mg/Ml Vial) 10 mg IV Q6H PRN PRN PRN Reason: for SBP>160 Last Admin: 12/08/19 05:03 Dose: 10 mg Documented by: Sodium Chloride () 250 mls @ 15 mls/hr IV .[id number] PRN PRN Reason: Saline Flush Sodium Chloride () 250 mls @ 15 mls/hr IV .[id number] PRN PRN Reason: Additional IVPB Infusion Losartan Potassium (Losartan Potassium 100 Mg Tablet) 100 mg PO DAILY [facility] Last Admin: 12/10/19 09:33 Dose: 100 mg Documented by: Mirtazapine (Mirtazapine 15 Mg Tablet) 15 mg PO QHS [facility] Last Admin: 12/09/19 23:28 Dose: Not Given Documented by: Ondansetron HCl (Ondansetron 4 Mg/2 Ml Vial) 4 mg IV Q8H PRN PRN PRN Reason: NAUSEA/VOMITING Last Admin: 12/07/19 10:39 Dose: 4 mg Documented by: Quetiapine Fumarate (Quetiapine 25 Mg Tablet) 25 mg PO QHS [facility] Senna/Docusate Sodium (Senna/Docusate Sodium 1 Tablet) 2 tablet PO BID PRN PRN PRN Reason: Constipation Sodium Chloride (0.9% Saline Lock 10 Ml Syringe) 10 - 40 ml IV UD PRN PRN Reason: SALINE FLUSH Last Admin: 12/10/19 09:33 Dose: 10 ml Documented by: Zolpidem Tartrate (Zolpidem Tartrate 5 Mg Tablet) 5 mg PO QHS PRN PRN PRN Reason: INSOMNIA Clinical Impression(s) from Imaging Studies Abdomen X-Ray 12/09/19 14:45 IMPRESSION: 1. Findings most suggestive of a distal colonic obstruction or mass with sigmoid dilatation. This does not have the appearance of a sigmoid volvulus, although volvulus cannot be completely ruled out. 2. Bilateral pulmonary infiltrates, as above. Electronically Signed: Olegario Figueroa DO at 18:14 EDT Tel [phone], Service support , Medical Necessity - Tobacco Use Smoking Status: Former smoker Assessment/Plan All Active Problems (Last Updated 09/18/18 @ 00:[address] Zahng Luo MD) Acute hypoxic respiratory insufficiency (Acute) 2019 novel coronavirus disease (COVID-19) (Acute) RECOMMENDATIONS: 1. Complete course of Decadron 6 mg daily x10 days. 2. No current indication for remdesivir or convalescent plasma in my opinion. 3. Unclear if extensive work-up for bowel findings 4. Wean supplemental oxygen to maintain saturations at or above 90%. 5. Encourage incentive spirometer use and mobilize patient as tolerated. IMPRESSIONS: 1. Acute hypoxemic respiratory insufficiency secondary to COVID-19 pneumonia The patient initially presented with symptoms in excess of 1 weeks duration, having tested positive on November 30. The patient is currently doing well from a respiratory perspective on minimal supplemental oxygen. Therefore, I believe it is reasonable to continue current supportive measures with supplemental oxygen to maintain saturations at or above 90%. Decadron will be continued 6 mg daily x10 days. Anticipate protracted recovery. Patient will likely require placement at discharge, per the hospitalist 2. Hypertension/advanced age Complicates care, management, recovery and prognosis. Continue home medications as indicated. Patient may require increased antihypertensive medications while on Decadron. Abdominal x-ray was suggestive of an obstruction, but this does not correlate with physical exam. Defer to hospitalist, but likely not necessary to obtain an aggressive work-up at this time. May consider initiation of a bowel regimen Inpatient E&M: 52885 Subs Hosp L3
[2019-12-10] MEDS: QUEtiapine 25 MG Tablet PO (20:01)
[2019-12-10] MEDS: Mirtazapine 15 MG Tablet PO (20:01)
[2019-12-11] VITALS (26 sets, daily range): BP systolic 92–134; BP diastolic 52–81; PULSE 62–88; RESP 12–36; TEMP 35.8–36.6; O2SAT 84–100
[2019-12-11] MEDS: Ziprasidone IM 20 MG/ML VIAL 10 MG IM (00:01)
--- NOTE | 2019-12-11 00:20 | CPS ---
Non-rebreather mask added to AirVo d/t being maxed out at 60L and fio2 94%
--- NOTE | 2019-12-11 00:21 | NURSING ---
2345- Patient is still taking off Airvo and combative if we attempt to reapply Airvo. When oxygen is off saturation drops into 70s. Patient still combative after two doses of Haldol. notified.
--- NOTE | 2019-12-11 00:22 | NURSING ---
pt agitated, confused wont leave airvo on 2-3 staff having to hold pt down to keep airvo on. reassurance, reorientation, repositioning not effective. pt hitting and kicking at staff. has been medicated-dr aware. see physician notifications. nursing supv notified. staff staying with pt for safety.
[2019-12-11 07:37] LABS: Anion Gap 9 (5-15); BUN 98 mg/dL (7-18); BUN/Creat Ratio 42.8 RATIO (10-20); Calcium,Total 8.8 mg/dL (8.5-10.1); Chloride 120 mmol/L (98-107); Creatinine, Serum 2.29 mg/dL (0.70-1.30); EST Glomerular Filtration Rate 30 mL/min (>60); Est Glom Filt Rate - Afr Amer 36 mL/min (>60); Estimated Creatinine Clearance 30.11 ml/min; Glucose 176 mg/dL (74-106); Magnesium 3.8 mg/dL (1.6-2.6); Phosphorus 4.9 mg/dL (2.5-4.9); Potassium 3.6 mmol/L (3.5-5.1); Sodium Level 151 mmol/L (136-145)
[2019-12-11] MEDS: dexAMETHasone 10 MG/ML Vial 6 MG IV (07:47)
[2019-12-11] MEDS: 0.9% Saline Lock 10 ML Syringe IV (07:47)
[2019-12-11 09:01] LABS: Allen Test Positive; Base Excess -2 mmol/L (-2 to +2); Bicarbonate 22.7 mmol/L (22-26); Blood Gas Specimen Type ART; FI02 100; O2 Delivery Device HFNC; PO2 60 mmHG (75-100); SITE L Radial; SO2 92 % (95-99); Total Carbon Dioxide 24 mmol/L; pCO2 33.8 mmHg (35-45); pH 7.44 (7.35-7.45)
--- NOTE | 2019-12-11 11:15 | NURSING ---
This RN removed restraints at this time, will continue to monitor need for restraints
--- NOTE | 2019-12-11 11:30 | PCM.PN.ID ---
Patient Problems: Active and Suspected Problems (Last Updated 09/18/18 @ 00:[address] Zhang Luo MD) Acute hypoxic respiratory insufficiency (Acute) 2019 novel coronavirus disease (COVID-19) (Acute) Subjective: Sleeping this AM, no fever - Physical Exam Vitals/I&O's: Vital Signs Temp Pulse Resp BP Pulse Ox 96.5 F L 65 20 H 102/61 100 12/11/19 10:24 12/11/19 10:24 12/11/19 10:24 12/11/19 10:24 12/11/19 10:24 Oxygen Flow Rate (L/min) 50 Oxygen Delivery Method Bi-pap Weight: 107.2 kg Body Mass Index (BMI) 33.0 Intake and Output for Last 24 Hours 12/09/19 12/10/19 12/11/19 23:59 23:59 23:59 Intake Total 60 / 60 100 / 100 240 / 240 Output Total 800 / 800 800 / 800 Balance -740 / -740 100 / 100 -560 / -560 General: Lethargic Lungs: Diminished Cardiovascular: Regular rate, Regular Rhythm Abdomen: Soft, Non Tender, Non-Distended Skin: No rashes Microbiology Past 72 Hours 12/05/19 22:46 Blood Culture (Wb) - Right Hand Blood Culture - Final No growth in 5 days. 12/05/19 22:32 Blood Culture (Wb) - Anticubital Left Blood Culture - Final No growth in 5 days. 12/07/19 18:30 Urine Catheter - [place] Urine Culture - Final Culture exhibits no growth. Laboratory Results 12/11/19 06:56: Sodium 151 H, Potassium 3.6, Chloride 120 H, Carbon Dioxide 22.0, Anion Gap 9, BUN 98 H, Creatinine 2.29 H, Estim Creat Clear Calc 30.11, Est GFR (MDRD) Af Amer 36 L, Est GFR (MDRD) Non-Af 30 L, BUN/Creatinine Ratio 42.8 H, Glucose 176 H, Calcium 8.8, Phosphorus 4.9, Magnesium 3.8 H 12/11/19 08:50: Specimen Type ART, Sample Site L Radial, pH 7.44, Bicarbonate Actual 22.7, Total CO2 24, Base Excess -2, O2 Saturation 92 L, O2 % 100, ABG pCO2 33.8 L, ABG pO2 60 L, Mayo Test Positive, O2 Delivery Device HFNC Current Medications Acetaminophen (Acetaminophen 325 Mg Tablet) 650 mg PO Q6H PRN PRN PRN Reason: Pain Score 1-10/Temp > 100.7 F Last Admin: 12/08/19 05:03 Dose: 650 mg Documented by: Albuterol Sulfate (Albuterol Ih 8.5 Gm (Proair) Inhaler (200 Puffs)) 2 puff INHALATION Q4H PRN PRN PRN Reason: Shortness of breath, wheezing Amlodipine Besylate (Amlodipine 10 Mg Tablet) 10 mg PO DAILY [facility] Last Admin: 12/11/19 10:59 Dose: Not Given Documented by: Dexamethasone Sodium Phosphate (Dexamethasone 10 Mg/Ml Vial) 6 mg IV DAILY [facility] Last Admin: 12/11/19 07:47 Dose: 6 mg Documented by: Enoxaparin Sodium (Enoxaparin 30 Mg/0.3 Ml Syringe) 30 mg SC DAILY [facility] Last Admin: 12/07/19 10:31 Dose: 30 mg Documented by: Hydralazine HCl (Hydralazine 20 Mg/Ml Vial) 10 mg IV Q6H PRN PRN PRN Reason: for SBP>160 Last Admin: 12/08/19 05:03 Dose: 10 mg Documented by: Sodium Chloride () 250 mls @ 15 mls/hr IV .[id number] PRN PRN Reason: Saline Flush Sodium Chloride () 250 mls @ 15 mls/hr IV .[id number] PRN PRN Reason: Additional IVPB Infusion Losartan Potassium (Losartan Potassium 100 Mg Tablet) 100 mg PO DAILY [facility] Last Admin: 12/11/19 10:59 Dose: Not Given Documented by: Mirtazapine (Mirtazapine 15 Mg Tablet) 15 mg PO QHS [facility] Last Admin: 12/10/19 20:01 Dose: 15 mg Documented by: Ondansetron HCl (Ondansetron 4 Mg/2 Ml Vial) 4 mg IV Q8H PRN PRN PRN Reason: NAUSEA/VOMITING Last Admin: 12/07/19 10:39 Dose: 4 mg Documented by: Quetiapine Fumarate (Quetiapine 25 Mg Tablet) 25 mg PO QHS [facility] Last Admin: 12/10/19 20:01 Dose: 25 mg Documented by: Senna/Docusate Sodium (Senna/Docusate Sodium 1 Tablet) 2 tablet PO BID PRN PRN PRN Reason: Constipation Sodium Chloride (0.9% Saline Lock 10 Ml Syringe) 10 - 40 ml IV UD PRN PRN Reason: SALINE FLUSH Last Admin: 12/11/19 07:47 Dose: 10 ml Documented by: Zolpidem Tartrate (Zolpidem Tartrate 5 Mg Tablet) 5 mg PO QHS PRN PRN PRN Reason: INSOMNIA Medical Necessity - Tobacco Use Smoking Status: Former smoker Route of nutrition/ use of supplements: [] Nutritional Intake: [] IV Site: [] [place] Catheter: [] - Assessment/Plan Antibiotics: [] Assessment/Plan: [] Active and Suspected Problems (Last Updated 09/18/18 @ 00:[address] Zhang Luo MD) Acute hypoxic respiratory insufficiency (Acute) 2019 novel coronavirus disease (COVID-19) (Acute) Fever resolved, on prophylactic lovenox and dex. Doubt benefit from remdesivir at this point. Mental status remains diminished. Still high O2 reqs but much improved today. Will follow
--- NOTE | 2019-12-11 11:59 | PCM.PN.HOSP ---
Patient Problems: Active and Suspected Problems (Last Updated 09/18/18 @ 00:[address] Zhang Luo MD) Acute hypoxic respiratory insufficiency (Acute) 2019 novel coronavirus disease (COVID-19) (Acute) Subjective: Confused and disoriented. However he had difficulty with his oxygen saturations this morning on high flow nasal cannula and nonrebreather mask therefore he was placed on BiPAP. Prior to BiPAP he had an ABG drawn which showed normal pH a low PCO2 and a low PO2 Vitals/I&O's: Vital Signs Temp Pulse Resp BP Pulse Ox 96.5 F L 65 20 H 102/61 100 12/11/19 10:24 12/11/19 10:24 12/11/19 10:24 12/11/19 10:24 12/11/19 10:24 Oxygen Flow Rate (L/min) 50 Oxygen Delivery Method Bi-pap Weight: 236 lb 5.369 oz Body Mass Index (BMI) 33.0 Intake and Output for Last 24 Hours 12/09/19 12/10/19 12/11/19 23:59 23:59 23:59 Intake Total 60 / 60 100 / 100 240 / 240 Output Total 800 / 800 800 / 800 Balance -740 / -740 100 / 100 -560 / -560 General: No apparent distress, Confused, Disoriented, Non-Cooperative HEENT: Atraumatic, PERRLA, EOMI, Normocephalic Oral: Moist Mucosa Neck: Supple, No JVD Lungs: Normal air movement, No rhonchi, No wheeze, No rales, Diminished Cardiovascular: Regular rate, Regular Rhythm, Normal S1, Normal S2, No murmurs Abdomen: Soft, Non Tender, Non-Distended, No Hepato-splenomegaly Extremities: No edema, Capillary Refill Less than 3 Seconds Skin: No rashes, No breakdown Neurological: Neuro grossly intact, Sensory exam intact to light touch and pain Psych/Mental Status: Flat affect Microbiology Past 72 Hours 12/05/19 22:46 Blood Culture (Wb) - Right Hand Blood Culture - Final No growth in 5 days. 12/05/19 22:32 Blood Culture (Wb) - Anticubital Left Blood Culture - Final No growth in 5 days. 12/07/19 18:30 Urine Catheter - [place] Urine Culture - Final Culture exhibits no growth. Laboratory Results 12/11/19 06:56: Sodium 151 H, Potassium 3.6, Chloride 120 H, Carbon Dioxide 22.0, Anion Gap 9, BUN 98 H, Creatinine 2.29 H, Estim Creat Clear Calc 30.11, Est GFR (MDRD) Af Amer 36 L, Est GFR (MDRD) Non-Af 30 L, BUN/Creatinine Ratio 42.8 H, Glucose 176 H, Calcium 8.8, Phosphorus 4.9, Magnesium 3.8 H 12/11/19 08:50: Specimen Type ART, Sample Site L Radial, pH 7.44, Bicarbonate Actual 22.7, Total CO2 24, Base Excess -2, O2 Saturation 92 L, O2 % 100, ABG pCO2 33.8 L, ABG pO2 60 L, Mayo Test Positive, O2 Delivery Device HFNC Current Medications Acetaminophen (Acetaminophen 325 Mg Tablet) 650 mg PO Q6H PRN PRN PRN Reason: Pain Score 1-10/Temp > 100.7 F Last Admin: 12/08/19 05:03 Dose: 650 mg Documented by: Albuterol Sulfate (Albuterol Ih 8.5 Gm (Proair) Inhaler (200 Puffs)) 2 puff INHALATION Q4H PRN PRN PRN Reason: Shortness of breath, wheezing Amlodipine Besylate (Amlodipine 10 Mg Tablet) 10 mg PO DAILY [facility] Last Admin: 12/11/19 10:59 Dose: Not Given Documented by: Dexamethasone Sodium Phosphate (Dexamethasone 10 Mg/Ml Vial) 6 mg IV DAILY [facility] Last Admin: 12/11/19 07:47 Dose: 6 mg Documented by: Enoxaparin Sodium (Enoxaparin 30 Mg/0.3 Ml Syringe) 30 mg SC DAILY [facility] Last Admin: 12/07/19 10:31 Dose: 30 mg Documented by: Hydralazine HCl (Hydralazine 20 Mg/Ml Vial) 10 mg IV Q6H PRN PRN PRN Reason: for SBP>160 Last Admin: 12/08/19 05:03 Dose: 10 mg Documented by: Sodium Chloride () 250 mls @ 15 mls/hr IV .[id number] PRN PRN Reason: Saline Flush Sodium Chloride () 250 mls @ 15 mls/hr IV .[id number] PRN PRN Reason: Additional IVPB Infusion Losartan Potassium (Losartan Potassium 100 Mg Tablet) 100 mg PO DAILY [facility] Last Admin: 12/11/19 10:59 Dose: Not Given Documented by: Mirtazapine (Mirtazapine 15 Mg Tablet) 15 mg PO QHS [facility] Last Admin: 12/10/19 20:01 Dose: 15 mg Documented by: Ondansetron HCl (Ondansetron 4 Mg/2 Ml Vial) 4 mg IV Q8H PRN PRN PRN Reason: NAUSEA/VOMITING Last Admin: 12/07/19 10:39 Dose: 4 mg Documented by: Quetiapine Fumarate (Quetiapine 25 Mg Tablet) 25 mg PO QHS [facility] Last Admin: 12/10/19 20:01 Dose: 25 mg Documented by: Senna/Docusate Sodium (Senna/Docusate Sodium 1 Tablet) 2 tablet PO BID PRN PRN PRN Reason: Constipation Sodium Chloride (0.9% Saline Lock 10 Ml Syringe) 10 - 40 ml IV UD PRN PRN Reason: SALINE FLUSH Last Admin: 12/11/19 07:47 Dose: 10 ml Documented by: Zolpidem Tartrate (Zolpidem Tartrate 5 Mg Tablet) 5 mg PO QHS PRN PRN PRN Reason: INSOMNIA STROKE Vital Signs/Narrative: Vital Signs Temp Pulse Resp BP BP Pulse Ox 12/11/19 10:24 96.5 F L 65 20 H 102/61 100 12/11/19 09:23 69 12/11/19 09:10 66 15 112/62 100 Medical Necessity - Tobacco Use Smoking Status: Former smoker Assessment/Plan All Active Problems (Last Updated 09/18/18 @ 00:[address] Zhang Luo MD) Acute hypoxic respiratory insufficiency (Acute) 2019 novel coronavirus disease (COVID-19) (Acute) 1. Acute hypoxic respiratory insufficiency secondary to COVID-19 pneumonia/metabolic encephalopathy/CKD 3 -Delirium likely secondary to the Decadron and his disease process -Continue with Decadron, have discussed the case thoroughly with the family -He was given Haldol and Geodon overnight, and had to be placed on BiPAP this morning with restraints -We will continue with Seroquel 25 mg p.o. twice daily -Family agrees that there is probably mild dementia at baseline -No benefit from remdesivir at this point, or convalescent plasma -Creatinine is at baseline, will continue to monitor 2. Constipation versus volvulus -There is some concern about having a volvulus based on abdominal x-ray however secondary to Covid could not obtain a barium enema and because of his delirium he would not drink contrast for CT scan -Based on physical exam, his abdomen is nontender nondistended, he is afebrile therefore we will provide him with a stool softener and see if this is constipation. 3. HTN -Blood pressures are stable -Continue with his home blood pressure medications DVT: Lovenox Inpatient E&M: 26051 Subs Hosp L2
--- NOTE | 2019-12-11 13:14 | CPS ---
Not enough sample to rerun
--- NOTE | 2019-12-11 14:49 | PCM.PN.PUL ---
Patient Problems: Active and Suspected Problems (Last Updated 09/18/18 @ 00:[address] Zhang Luo MD) Acute hypoxic respiratory insufficiency (Acute) 2019 novel coronavirus disease (COVID-19) (Acute) Subjective: Patient did okay overnight. Patient is still requiring high FiO2 to maintain saturations. Patient would open his eyes and interacts in brief stents. Patient is not reporting shortness of breath. - Physical Exam Vitals/I&O's: Vital Signs Temp Pulse Resp BP Pulse Ox 36.2 C L 69 24 H 120/74 97 12/11/19 12:00 12/11/19 14:00 12/11/19 14:00 12/11/19 14:00 12/11/19 14:00 Oxygen Flow Rate (L/min) 50 Oxygen Delivery Method Bi-pap Weight: 107.2 kg Body Mass Index (BMI) 33.0 Intake and Output for Last 24 Hours 12/09/19 12/10/19 12/11/19 23:59 23:59 23:59 Intake Total 60 / 60 100 / 100 240 / 240 Output Total 800 / 800 800 / 800 Balance -740 / -740 100 / 100 -560 / -560 General: Lethargic, Non-Cooperative HEENT: PERRLA, EOMI, - - Wounds healing well Oral: Moist Mucosa, No Gingival or Mucosal Lesions/ Ulcerations, - - Crowded posterior pharynx Neck: Supple, No JVD, No Nodes, Trachea Midline Lungs: No rhonchi, No wheeze, Diminished, Rales - Right base, - - Symmetric expansion Cardiovascular: Regular rate, Regular Rhythm, Normal S1, Normal S2, No rub noted, No Gallop Abdomen: Bowel Sounds Present, Soft, Non Tender, Distended - Slightly, Obese Extremities: No clubbing, No cyanosis, Edema Skin: - - Wounds healing well Musculoskeletal: No Tenderness to Palpation of Joints or Extremities Lymphatic: No Cervical, Supraclavicular, or Inguinal Adenopathy Neurological: - - Does not really follow commands. Slow to respond, but will open eyes Psych/Mental Status: Flat Affect Microbiology Past 72 Hours 12/05/19 22:46 Blood Culture (Wb) - Right Hand Blood Culture - Final No growth in 5 days. 12/05/19 22:32 Blood Culture (Wb) - Anticubital Left Blood Culture - Final No growth in 5 days. 12/07/19 18:30 Urine Catheter - [place] Urine Culture - Final Culture exhibits no growth. Laboratory Results 12/11/19 06:56: Sodium 151 H, Potassium 3.6, Chloride 120 H, Carbon Dioxide 22.0, Anion Gap 9, BUN 98 H, Creatinine 2.29 H, Estim Creat Clear Calc 30.11, Est GFR (MDRD) Af Amer 36 L, Est GFR (MDRD) Non-Af 30 L, BUN/Creatinine Ratio 42.8 H, Glucose 176 H, Calcium 8.8, Phosphorus 4.9, Magnesium 3.8 H 12/11/19 08:50: Specimen Type ART, Sample Site L Radial, pH 7.44, Bicarbonate Actual 22.7, Total CO2 24, Base Excess -2, O2 Saturation 92 L, O2 % 100, ABG pCO2 33.8 L, ABG pO2 60 L, Mayo Test Positive, O2 Delivery Device HFNC Current Medications Acetaminophen (Acetaminophen 325 Mg Tablet) 650 mg PO Q6H PRN PRN PRN Reason: Pain Score 1-10/Temp > 100.7 F Last Admin: 12/08/19 05:03 Dose: 650 mg Documented by: Albuterol Sulfate (Albuterol Ih 8.5 Gm (Proair) Inhaler (200 Puffs)) 2 puff INHALATION Q4H PRN PRN PRN Reason: Shortness of breath, wheezing Amlodipine Besylate (Amlodipine 10 Mg Tablet) 10 mg PO DAILY [facility] Last Admin: 12/11/19 10:59 Dose: Not Given Documented by: Dexamethasone Sodium Phosphate (Dexamethasone 10 Mg/Ml Vial) 6 mg IV DAILY [facility] Last Admin: 12/11/19 07:47 Dose: 6 mg Documented by: Enoxaparin Sodium (Enoxaparin 30 Mg/0.3 Ml Syringe) 30 mg SC DAILY [facility] Last Admin: 12/07/19 10:31 Dose: 30 mg Documented by: Hydralazine HCl (Hydralazine 20 Mg/Ml Vial) 10 mg IV Q6H PRN PRN PRN Reason: for SBP>160 Last Admin: 12/08/19 05:03 Dose: 10 mg Documented by: Sodium Chloride () 250 mls @ 15 mls/hr IV .[id number] PRN PRN Reason: Saline Flush Sodium Chloride () 250 mls @ 15 mls/hr IV .[id number] PRN PRN Reason: Additional IVPB Infusion Dextrose () 500 mls @ 60 mls/hr IV .Q8H20M [facility] Last Admin: 12/11/19 13:12 Dose: 60 mls/hr Documented by: Losartan Potassium (Losartan Potassium 100 Mg Tablet) 100 mg PO DAILY [facility] Last Admin: 12/11/19 10:59 Dose: Not Given Documented by: Mirtazapine (Mirtazapine 15 Mg Tablet) 15 mg PO QHS [facility] Last Admin: 12/10/19 20:01 Dose: 15 mg Documented by: Ondansetron HCl (Ondansetron 4 Mg/2 Ml Vial) 4 mg IV Q8H PRN PRN PRN Reason: NAUSEA/VOMITING Last Admin: 12/07/19 10:39 Dose: 4 mg Documented by: Quetiapine Fumarate (Quetiapine 25 Mg Tablet) 25 mg PO BID [facility] Last Admin: 12/11/19 13:12 Dose: Not Given Documented by: Senna/Docusate Sodium (Senna/Docusate Sodium 1 Tablet) 2 tablet PO BID [facility] Last Admin: 12/11/19 13:13 Dose: Not Given Documented by: Sodium Chloride (0.9% Saline Lock 10 Ml Syringe) 10 - 40 ml IV UD PRN PRN Reason: SALINE FLUSH Last Admin: 12/11/19 07:47 Dose: 10 ml Documented by: Zolpidem Tartrate (Zolpidem Tartrate 5 Mg Tablet) 5 mg PO QHS PRN PRN PRN Reason: INSOMNIA Medical Necessity - Tobacco Use Smoking Status: Former smoker Assessment/Plan All Active Problems (Last Updated 09/18/18 @ 00:[address] Zhang Luo MD) Acute hypoxic respiratory insufficiency (Acute) 2019 novel coronavirus disease (COVID-19) (Acute) RECOMMENDATIONS: 1. Complete course of Decadron 6 mg daily x10 days. 2. No current indication for remdesivir or convalescent plasma in my opinion. 3. Unclear if extensive work-up for bowel findings 4. Wean supplemental oxygen to maintain saturations at or above 90%. 5. Encourage incentive spirometer use and mobilize patient as tolerated. 6. Consider family discussion on goals of therapy IMPRESSIONS: 1. Acute hypoxemic respiratory insufficiency secondary to COVID-19 pneumonia The patient initially presented with symptoms in excess of 1 weeks duration, having tested positive on November 30. The patient is currently doing marginal from a respiratory perspective on minimal supplemental oxygen. Therefore, I believe it is reasonable to continue current supportive measures with supplemental oxygen to maintain saturations at or above 90%. Decadron will be continued 6 mg daily x10 days. Anticipate protracted recovery. Patient likely has an element of atelectasis, but is not really cooperative with recruitment measures. Patient is having some improvement with BiPAP, but this is likely secondary to forced recruitment from positive pressure. It is unclear if this would persist with removal of BiPAP, which is not a long-term solution. 2. Hypertension/advanced age Complicates care, management, recovery and prognosis. Continue home medications as indicated. Patient may require increased antihypertensive medications while on Decadron. Abdominal x-ray was suggestive of an obstruction, but this does not correlate with physical exam. Defer to hospitalist, but likely not necessary to obtain an aggressive work-up at this time. May consider initiation of a bowel regimen Inpatient E&M: 20949 [facility] Hosp L3
--- NOTE | 2019-12-11 20:30 | NURSING ---
pt resistive and combative w any care, will fight and refuse any care or positioning, pulling ekg wires off, attempted to give the pt a drink and he resisted, and tried grabbing at this rn and his bipap. soft wrist restraints in use. dr may was notified and ordered haldol.
[2019-12-11] MEDS: Haloperidol Lactate 5 MG/ML Vial 2 MG IM (21:15)
[2019-12-12] VITALS (27 sets, daily range): BP systolic 109–147; BP diastolic 62–84; PULSE 61–89; RESP 12–27; TEMP 36.2–37.6; O2SAT 88–100
[2019-12-12] MEDS: QUEtiapine 25 MG Tablet PO (04:58)
[2019-12-12 06:30] LABS: Anion Gap 10 (5-15); BUN 103 mg/dL (7-18); Calcium,Total 8.4 mg/dL (8.5-10.1); Chloride 120 mmol/L (98-107); Creatinine, Serum 2.24 mg/dL (0.70-1.30); EST Glomerular Filtration Rate 31 mL/min (>60); Est Glom Filt Rate - Afr Amer 37 mL/min (>60); Estimated Creatinine Clearance 30.78 ml/min; Glucose 230 mg/dL (74-106); Potassium 3.9 mmol/L (3.5-5.1); Sodium Level 154 mmol/L (136-145)
[2019-12-12] MEDS: dexAMETHasone 10 MG/ML Vial 6 MG IV (08:38)
--- NOTE | 2019-12-12 10:20 | CPS ---
Called from RN that pt broke Bipap mask. In pt room to replace mask with a new Bipap mask and applied duoderm at this time as well.
--- NOTE | 2019-12-12 11:12 | PN_ITS ---
Patient Problems: Active and Suspected Problems (Last Updated 09/18/18 @ 00:[address] hZang Luo MD) Acute hypoxic respiratory insufficiency (Acute) 2019 novel coronavirus disease (COVID-19) (Acute) Subjective: Little bit less agitated overnight though whenever you do interact with him he does become restless and tries to take his mask off. Continue with Seroquel twice daily. Vitals/I&O's: Vital Signs Temp Pulse Resp BP Pulse Ox 97.6 F L 72 20 H 122/72 H 98 12/12/19 10:00 12/12/19 10:01 12/12/19 10:00 12/12/19 10:00 12/12/19 10:00 Oxygen Flow Rate (L/min) 50 Oxygen Delivery Method Bi-pap Weight: 236 lb 5.369 oz Body Mass Index (BMI) 33.0 Intake and Output for Last 24 Hours 12/10/19 12/11/19 12/12/19 23:59 23:59 23:59 Intake Total 100 / 100 740 / 740 500 / 500 Output Total 800 / 800 Balance 100 / 100 -60 / -60 500 / 500 General: No apparent distress, Confused, Disoriented, Non-Cooperative HEENT: Atraumatic, PERRLA, EOMI, Normocephalic Oral: Moist Mucosa Neck: Supple, No JVD Lungs: Normal air movement, No rhonchi, No wheeze, No rales, Diminished Cardiovascular: Regular rate, Regular Rhythm, Normal S1, Normal S2, No murmurs Abdomen: Soft, Non Tender, Non-Distended, No Hepato-splenomegaly Extremities: No edema, Capillary Refill Less than 3 Seconds Skin: No rashes, No breakdown Neurological: Neuro grossly intact, Sensory exam intact to light touch and pain Psych/Mental Status: Flat affect Microbiology Past 72 Hours 12/05/19 22:46 Blood Culture (Wb) - Right Hand Blood Culture - Final No growth in 5 days. 12/05/19 22:32 Blood Culture (Wb) - Anticubital Left Blood Culture - Final No growth in 5 days. 12/07/19 18:30 Urine Catheter - [place] Urine Culture - Final Culture exhibits no growth. Laboratory Results 12/12/19 05:06: Sodium 154 H, Potassium 3.9, Chloride 120 H, Carbon Dioxide 24.0, Anion Gap 10, BUN 103 H*, Creatinine 2.24 H, Estim Creat Clear Calc 30.78, Est GFR (MDRD) Af Amer 37 L, Est GFR (MDRD) Non-Af 31 L, BUN/Creatinine Ratio 46.0 H, Glucose 230 H, Calcium 8.4 L Current Medications Acetaminophen (Acetaminophen 325 Mg Tablet) 650 mg PO Q6H PRN PRN PRN Reason: Pain Score 1-10/Temp > 100.7 F Last Admin: 12/08/19 05:03 Dose: 650 mg Documented by: Albuterol Sulfate (Albuterol Ih 8.5 Gm (Proair) Inhaler (200 Puffs)) 2 puff INHALATION Q4H PRN PRN PRN Reason: Shortness of breath, wheezing Amlodipine Besylate (Amlodipine 10 Mg Tablet) 10 mg PO DAILY [facility] Last Admin: 12/12/19 11:08 Dose: Not Given Documented by: Dexamethasone Sodium Phosphate (Dexamethasone 10 Mg/Ml Vial) 6 mg IV DAILY [facility] Last Admin: 12/12/19 08:38 Dose: 6 mg Documented by: Dextrose (Dextrose 50%-Water 25 Gm/50 Ml Disp.Syrin) 0 gm IV X1 PRN; Protocol PRN Reason: Hypoglycemia Enoxaparin Sodium (Enoxaparin 30 Mg/0.3 Ml Syringe) 30 mg SC DAILY [facility] Last Admin: 12/07/19 10:31 Dose: 30 mg Documented by: Glucagon (Glucagon 1 Mg/Ml Syringe) 1 mg IM .X1 PRN PRN Reason: Hypoglycemia Hydralazine HCl (Hydralazine 20 Mg/Ml Vial) 10 mg IV Q6H PRN PRN PRN Reason: for SBP>160 Last Admin: 12/08/19 05:03 Dose: 10 mg Documented by: Sodium Chloride () 250 mls @ 15 mls/hr IV .[id number] PRN PRN Reason: Saline Flush Sodium Chloride () 250 mls @ 15 mls/hr IV .[id number] PRN PRN Reason: Additional IVPB Infusion Dextrose () 500 mls @ 60 mls/hr IV .Q8H20M [facility] Last Admin: 12/12/19 06:02 Dose: 60 mls/hr Documented by: Insulin Human Lispro (Insulin Lispro 100 Unit/Ml Insuln.Pen) 0 unit SC Q4 [facility]; Protocol Losartan Potassium (Losartan Potassium 100 Mg Tablet) 100 mg PO DAILY [facility] Last Admin: 12/12/19 11:08 Dose: Not Given Documented by: Mirtazapine (Mirtazapine 15 Mg Tablet) 15 mg PO QHS [facility] Last Admin: 12/11/19 21:14 Dose: Not Given Documented by: Ondansetron HCl (Ondansetron 4 Mg/2 Ml Vial) 4 mg IV Q8H PRN PRN PRN Reason: NAUSEA/VOMITING Last Admin: 12/07/19 10:39 Dose: 4 mg Documented by: Quetiapine Fumarate (Quetiapine 25 Mg Tablet) 25 mg PO BID [facility] Last Admin: 12/12/19 04:58 Dose: 25 mg Documented by: Senna/Docusate Sodium (Senna/Docusate Sodium 1 Tablet) 2 tablet PO BID [facility] Last Admin: 12/12/19 11:08 Dose: Not Given Documented by: Sodium Chloride (0.9% Saline Lock 10 Ml Syringe) 10 - 40 ml IV UD PRN PRN Reason: SALINE FLUSH Last Admin: 12/11/19 07:47 Dose: 10 ml Documented by: Zolpidem Tartrate (Zolpidem Tartrate 5 Mg Tablet) 5 mg PO QHS PRN PRN PRN Reason: INSOMNIA STROKE Vital Signs/Narrative: Vital Signs Temp Pulse Resp BP Pulse Ox 12/12/19 10:01 72 12/12/19 10:00 97.6 F L 68 20 H 122/72 H 98 12/12/19 09:30 77 21 H 96 12/12/19 08:00 98.1 F 66 20 H 111/67 91 12/12/19 07:36 72 26 H Medical Necessity - Tobacco Use Smoking Status: Former smoker Assessment/Plan All Active Problems (Last Updated 09/18/18 @ 00:[address] Zhang Luo MD) Acute hypoxic respiratory insufficiency (Acute) 2019 novel coronavirus disease (COVID-19) (Acute) 1. Acute hypoxic respiratory insufficiency secondary to COVID-19 pneumonia/metabolic encephalopathy/THERESE on CKD 3/hypernatremia -Delirium likely secondary to the Decadron and his disease process -Continue with Decadron, have discussed the case thoroughly with the family -Continue with BiPAP with his restraints, hopefully if he continues doing well with the twice daily dosing of the Seroquel could potentially take off the restraints -We will continue with Seroquel 25 mg p.o. twice daily -Family agrees that there is probably mild dementia at baseline -A 20-minute discussion with advanced care planning with the family yesterday and they agreed that he would not do well with intubation would like him to be changed from a DNR CCA with intubation to a DNR/DNI -No benefit from remdesivir at this point, or convalescent plasma -Creatinine is at baseline, will continue to monitor -BUN is elevated to 103, and his sodium has risen to 154. He was added D5W yesterday and will continue with that today at 60 cc/h. We will add a sliding scale insulin to manage his elevated blood sugar. Baseline creatinine is around 1.3 and he is currently 2.24 2. Constipation versus volvulus -There is some concern about having a volvulus based on abdominal x-ray however secondary to Covid could not obtain a barium enema and because of his delirium he would not drink contrast for CT scan -Based on physical exam, his abdomen is nontender nondistended, he is afebrile therefore we will provide him with a stool softener and see if this is constipation. 3. HTN -Blood pressures are stable -Continue with his home blood pressure medications DVT: Lovenox Inpatient E&M: 49888 Subs Hosp L2 Procedures: 72697 Advncd Care Plan 30 Min
[2019-12-12 12:10] LABS: Bedside Glucose 233 mg/dL (70-110)
[2019-12-12] MEDS: Haloperidol Lactate 5 MG/ML Vial 1 MG IM (13:41)
--- NOTE | 2019-12-12 14:00 | NURSING ---
Signed haldol out of accudose for TI Garay. both Jarrod and I tried to waste in accudose after Jarrod gave 1 mg IM Haldol as ordered. did not ask for a cosigner in accudose. 1 mg IM Haldol was given to patient per TI Garay and the remaining 4 mg was wasted.
--- NOTE | 2019-12-12 15:29 | PCM.PN.PUL ---
Patient Problems: Active and Suspected Problems (Last Updated 09/18/18 @ 00:[address] Zhang Luo MD) Acute hypoxic respiratory insufficiency (Acute) 2019 novel coronavirus disease (COVID-19) (Acute) Subjective: Patient relatively hemodynamically stable when BiPAP is in place. However, patient has been intermittently agitated and pulling at his mask. This has resulted in 3 broken BiPAP masks thus far today. Patient was not interacting with me on my evaluation. - Physical Exam Vitals/I&O's: Vital Signs Temp Pulse Resp BP Pulse Ox 36.2 C L 72 20 H 131/78 H 92 12/12/19 14:00 12/12/19 14:00 12/12/19 14:00 12/12/19 14:00 12/12/19 14:00 Oxygen Flow Rate (L/min) 50 Oxygen Delivery Method Bi-pap Weight: 107.2 kg Body Mass Index (BMI) 33.0 Intake and Output for Last 24 Hours 12/10/19 12/11/19 12/12/19 23:59 23:59 23:59 Intake Total 100 / 100 740 / 740 958 / 958 Output Total 800 / 800 Balance 100 / 100 -60 / -60 958 / 958 General: Lethargic, Non-Cooperative, - - Appears to be more about ignoring me then true lethargy HEENT: PERRLA, - - Head wounds healing well. Oral: Moist Mucosa, No Gingival or Mucosal Lesions/ Ulcerations Neck: Supple, No JVD, No Nodes, Trachea Midline Lungs: No rhonchi, No wheeze, No rales, Diminished, - - Little to no patient effort during the evaluation Cardiovascular: Regular rate, Regular Rhythm, Normal S1, Normal S2, No murmurs, No rub noted, No Gallop Abdomen: Bowel Sounds Present, Soft, Non Tender, Non-Distended, Obese Extremities: No clubbing, No cyanosis, No edema Skin: - - Skin healing well Musculoskeletal: No Tenderness to Palpation of Joints or Extremities Lymphatic: No Cervical, Supraclavicular, or Inguinal Adenopathy Neurological: Cranial nerves II-XII grossly intact, Neuro grossly intact, Motor Exam 5/5 strength throughout Psych/Mental Status: Flat Affect, Restless Microbiology Past 72 Hours 12/05/19 22:46 Blood Culture (Wb) - Right Hand Blood Culture - Final No growth in 5 days. 12/05/19 22:32 Blood Culture (Wb) - Anticubital Left Blood Culture - Final No growth in 5 days. 12/07/19 18:30 Urine Catheter - [place] Urine Culture - Final Culture exhibits no growth. Laboratory Results 12/12/19 05:06: Sodium 154 H, Potassium 3.9, Chloride 120 H, Carbon Dioxide 24.0, Anion Gap 10, BUN 103 H*, Creatinine 2.24 H, Estim Creat Clear Calc 30.78, Est GFR (MDRD) Af Amer 37 L, Est GFR (MDRD) Non-Af 31 L, BUN/Creatinine Ratio 46.0 H, Glucose 230 H, Calcium 8.4 L 12/12/19 11:51: POC Glucose 233 H Current Medications Acetaminophen (Acetaminophen 325 Mg Tablet) 650 mg PO Q6H PRN PRN PRN Reason: Pain Score 1-10/Temp > 100.7 F Last Admin: 12/08/19 05:03 Dose: 650 mg Documented by: Albuterol Sulfate (Albuterol Ih 8.5 Gm (Proair) Inhaler (200 Puffs)) 2 puff INHALATION Q4H PRN PRN PRN Reason: Shortness of breath, wheezing Amlodipine Besylate (Amlodipine 10 Mg Tablet) 10 mg PO DAILY [facility] Last Admin: 12/12/19 11:08 Dose: Not Given Documented by: Dexamethasone Sodium Phosphate (Dexamethasone 10 Mg/Ml Vial) 6 mg IV DAILY [facility] Last Admin: 12/12/19 08:38 Dose: 6 mg Documented by: Dextrose (Dextrose 50%-Water 25 Gm/50 Ml Disp.Syrin) 0 gm IV X1 PRN; Protocol PRN Reason: Hypoglycemia Enoxaparin Sodium (Enoxaparin 30 Mg/0.3 Ml Syringe) 30 mg SC DAILY [facility] Last Admin: 12/07/19 10:31 Dose: 30 mg Documented by: Glucagon (Glucagon 1 Mg/Ml Syringe) 1 mg IM .X1 PRN PRN Reason: Hypoglycemia Hydralazine HCl (Hydralazine 20 Mg/Ml Vial) 10 mg IV Q6H PRN PRN PRN Reason: for SBP>160 Last Admin: 12/08/19 05:03 Dose: 10 mg Documented by: Sodium Chloride () 250 mls @ 15 mls/hr IV .[id number] PRN PRN Reason: Saline Flush Sodium Chloride () 250 mls @ 15 mls/hr IV .[id number] PRN PRN Reason: Additional IVPB Infusion Dextrose () 500 mls @ 60 mls/hr IV .Q8H20M [facility] Last Admin: 12/12/19 13:40 Dose: 60 mls/hr Documented by: Insulin Human Lispro (Insulin Lispro 100 Unit/Ml Insuln.Pen) 0 unit SC Q4 [facility]; Protocol Losartan Potassium (Losartan Potassium 100 Mg Tablet) 100 mg PO DAILY [facility] Last Admin: 12/12/19 11:08 Dose: Not Given Documented by: Mirtazapine (Mirtazapine 15 Mg Tablet) 15 mg PO QHS [facility] Last Admin: 12/11/19 21:14 Dose: Not Given Documented by: Ondansetron HCl (Ondansetron 4 Mg/2 Ml Vial) 4 mg IV Q8H PRN PRN PRN Reason: NAUSEA/VOMITING Last Admin: 12/07/19 10:39 Dose: 4 mg Documented by: Quetiapine Fumarate (Quetiapine 25 Mg Tablet) 25 mg PO BID [facility] Last Admin: 12/12/19 04:58 Dose: 25 mg Documented by: Senna/Docusate Sodium (Senna/Docusate Sodium 1 Tablet) 2 tablet PO BID [facility] Last Admin: 12/12/19 11:08 Dose: Not Given Documented by: Sodium Chloride (0.9% Saline Lock 10 Ml Syringe) 10 - 40 ml IV UD PRN PRN Reason: SALINE FLUSH Last Admin: 12/11/19 07:47 Dose: 10 ml Documented by: Zolpidem Tartrate (Zolpidem Tartrate 5 Mg Tablet) 5 mg PO QHS PRN PRN PRN Reason: INSOMNIA Medical Necessity - Tobacco Use Smoking Status: Former smoker Assessment/Plan All Active Problems (Last Updated 09/18/18 @ 00:[address] Zhang Luo MD) Acute hypoxic respiratory insufficiency (Acute) 2019 novel coronavirus disease (COVID-19) (Acute) RECOMMENDATIONS: 1. Complete course of Decadron 6 mg daily x10 days. 2. No current indication for remdesivir or convalescent plasma in my opinion given delay in presentation. 3. Unclear if extensive work-up for bowel findings 4. Wean supplemental oxygen to maintain saturations at or above 90%. 5. Encourage incentive spirometer use and mobilize patient as tolerated. 6. Changed to DNR Comfort Care arrest without intubation IMPRESSIONS: 1. Acute hypoxemic respiratory insufficiency secondary to COVID-19 pneumonia The patient initially presented with symptoms in excess of 1 weeks duration, having tested positive on November 30. The patient is currently doing marginal from a respiratory perspective on minimal supplemental oxygen. Therefore, I believe it is reasonable to continue current supportive measures with supplemental oxygen to maintain saturations at or above 90%. Decadron will be continued 6 mg daily x10 days. Anticipate protracted recovery. Patient likely has an element of atelectasis, but is not really cooperative with recruitment measures. Patient is having some improvement with BiPAP, but this is likely secondary to forced recruitment from positive pressure. It is unclear if this would persist with removal of BiPAP, which is not a long-term solution. Patient's mental status continues to complicate his care also. 2. Hypertension/advanced age Complicates care, management, recovery and prognosis. Continue home medications as indicated. Patient may require increased antihypertensive medications while on Decadron. Abdominal x-ray was suggestive of an obstruction, but this does not correlate with physical exam. Defer to hospitalist, but likely not necessary to obtain an aggressive work-up at this time. May consider initiation of a bowel regimen Inpatient E&M: [id number] [facility] L3
--- NOTE | 2019-12-12 15:42 | PCM.PN.ID ---
Patient Problems: Active and Suspected Problems (Last Updated 09/18/18 @ 00:[address] Zhang Luo MD) Acute hypoxic respiratory insufficiency (Acute) 2019 novel coronavirus disease (COVID-19) (Acute) Subjective: Remains confused, no fever - Physical Exam Vitals/I&O's: Vital Signs Temp Pulse Resp BP Pulse Ox 97.1 F L 72 20 H 131/78 H 92 12/12/19 14:00 12/12/19 14:00 12/12/19 14:00 12/12/19 14:00 12/12/19 14:00 Oxygen Flow Rate (L/min) 50 Oxygen Delivery Method Bi-pap Weight: 107.2 kg Body Mass Index (BMI) 33.0 Intake and Output for Last 24 Hours 12/10/19 12/11/19 12/12/19 23:59 23:59 23:59 Intake Total 100 / 100 740 / 740 958 / 958 Output Total 800 / 800 Balance 100 / 100 -60 / -60 958 / 958 General: Confused, Lethargic Lungs: Diminished Cardiovascular: Regular rate, Regular Rhythm Abdomen: Soft, Non Tender, Non-Distended Skin: No rashes Microbiology Past 72 Hours 12/05/19 22:46 Blood Culture (Wb) - Right Hand Blood Culture - Final No growth in 5 days. 12/05/19 22:32 Blood Culture (Wb) - Anticubital Left Blood Culture - Final No growth in 5 days. 12/07/19 18:30 Urine Catheter - [place] Urine Culture - Final Culture exhibits no growth. Laboratory Results 12/12/19 05:06: Sodium 154 H, Potassium 3.9, Chloride 120 H, Carbon Dioxide 24.0, Anion Gap 10, BUN 103 H*, Creatinine 2.24 H, Estim Creat Clear Calc 30.78, Est GFR (MDRD) Af Amer 37 L, Est GFR (MDRD) Non-Af 31 L, BUN/Creatinine Ratio 46.0 H, Glucose 230 H, Calcium 8.4 L 12/12/19 11:51: POC Glucose 233 H Current Medications Acetaminophen (Acetaminophen 325 Mg Tablet) 650 mg PO Q6H PRN PRN PRN Reason: Pain Score 1-10/Temp > 100.7 F Last Admin: 12/08/19 05:03 Dose: 650 mg Documented by: Albuterol Sulfate (Albuterol Ih 8.5 Gm (Proair) Inhaler (200 Puffs)) 2 puff INHALATION Q4H PRN PRN PRN Reason: Shortness of breath, wheezing Amlodipine Besylate (Amlodipine 10 Mg Tablet) 10 mg PO DAILY [facility] Last Admin: 12/12/19 11:08 Dose: Not Given Documented by: Dexamethasone Sodium Phosphate (Dexamethasone 10 Mg/Ml Vial) 6 mg IV DAILY [facility] Last Admin: 12/12/19 08:38 Dose: 6 mg Documented by: Dextrose (Dextrose 50%-Water 25 Gm/50 Ml Disp.Syrin) 0 gm IV X1 PRN; Protocol PRN Reason: Hypoglycemia Enoxaparin Sodium (Enoxaparin 30 Mg/0.3 Ml Syringe) 30 mg SC DAILY [facility] Last Admin: 12/07/19 10:31 Dose: 30 mg Documented by: Glucagon (Glucagon 1 Mg/Ml Syringe) 1 mg IM .X1 PRN PRN Reason: Hypoglycemia Hydralazine HCl (Hydralazine 20 Mg/Ml Vial) 10 mg IV Q6H PRN PRN PRN Reason: for SBP>160 Last Admin: 12/08/19 05:03 Dose: 10 mg Documented by: Sodium Chloride () 250 mls @ 15 mls/hr IV .[id number] PRN PRN Reason: Saline Flush Sodium Chloride () 250 mls @ 15 mls/hr IV .[id number] PRN PRN Reason: Additional IVPB Infusion Dextrose () 500 mls @ 60 mls/hr IV .Q8H20M [facility] Last Admin: 12/12/19 13:40 Dose: 60 mls/hr Documented by: Insulin Human Lispro (Insulin Lispro 100 Unit/Ml Insuln.Pen) 0 unit SC Q4 [facility]; Protocol Losartan Potassium (Losartan Potassium 100 Mg Tablet) 100 mg PO DAILY [facility] Last Admin: 12/12/19 11:08 Dose: Not Given Documented by: Mirtazapine (Mirtazapine 15 Mg Tablet) 15 mg PO QHS [facility] Last Admin: 12/11/19 21:14 Dose: Not Given Documented by: Ondansetron HCl (Ondansetron 4 Mg/2 Ml Vial) 4 mg IV Q8H PRN PRN PRN Reason: NAUSEA/VOMITING Last Admin: 12/07/19 10:39 Dose: 4 mg Documented by: Quetiapine Fumarate (Quetiapine 25 Mg Tablet) 25 mg PO BID [facility] Last Admin: 12/12/19 04:58 Dose: 25 mg Documented by: Senna/Docusate Sodium (Senna/Docusate Sodium 1 Tablet) 2 tablet PO BID [facility] Last Admin: 12/12/19 11:08 Dose: Not Given Documented by: Sodium Chloride (0.9% Saline Lock 10 Ml Syringe) 10 - 40 ml IV UD PRN PRN Reason: SALINE FLUSH Last Admin: 12/11/19 07:47 Dose: 10 ml Documented by: Zolpidem Tartrate (Zolpidem Tartrate 5 Mg Tablet) 5 mg PO QHS PRN PRN PRN Reason: INSOMNIA Medical Necessity - Tobacco Use Smoking Status: Former smoker Route of nutrition/ use of supplements: [] Nutritional Intake: [] IV Site: [] [place] Catheter: [] - Assessment/Plan Antibiotics: [] Assessment/Plan: [] Active and Suspected Problems (Last Updated 09/18/18 @ 00:[address] Zhang Luo MD) Acute hypoxic respiratory insufficiency (Acute) 2019 novel coronavirus disease (COVID-19) (Acute) Fever resolved, on prophylactic lovenox and dex. Mental status remains diminished. Still high O2 reqs. Will follow
[2019-12-12] MEDS: Insulin Lispro 100 UNIT/ML INSULN.PEN SC ×3 (16:47→21:14)
[2019-12-12] MEDS: QUEtiapine 25 MG Tablet 50 MG PO (18:13)
[2019-12-12 20:16] LABS: Bedside Glucose 213 mg/dL (70-110)
[2019-12-12 22:10] LABS: Bedside Glucose 158 mg/dL (70-110)
[2019-12-13] VITALS (19 sets, daily range): BP systolic 89–137; BP diastolic 57–85; PULSE 63–90; RESP 12–28; TEMP 36.3–37.1; O2SAT 78–97
[2019-12-13 02:36] LABS: Bedside Glucose 147 mg/dL (70-110)
--- NOTE | 2019-12-13 04:42 | NURSING ---
resp came into the pts room to find that he had vomited into his bipap, suctioned of thick product. pt still resistive to care and fighting staff as we try to clean his mouth and suction. dr may called and notified of the pts condition and vomiting. dr amy came up to se the pt, since he vomited he ordered to remove the bipap and place him on high flow o2 at 15l. pt still resistive to getting the oxygen placed in his nose and took 3 staff to hold his arms. pt in soft wrist restraints to prevent him from pulling the o2 off. haldol ordered to help the pt calm and rest comfortably. pt 86% on 15l high flow. hypo bs, lungs diminished.
--- NOTE | 2019-12-13 05:08 | CPS ---
BiPAP placed on standby per verbal order. Wants patient to only be on HFNC 15L. FUNERAL DIRECTOR AND EMBALMER placed patient on 15L HFNC.
--- NOTE | 2019-12-13 05:15 | PCM.PN.BLA ---
Progress Note Patient in restraints and with BiPAP on. Patient vomited. Discussed with nursing team and respiratory to stop BiPAP in this patient who is confused. Mask would not be appropriate. Discussed with nursing team and respiratory to put patient on high flow oxygen. Okay to continue restraints. Haldol 2 mg IM x1 ordered for agitation. STROKE Vital Signs/Narrative: Vital Signs Temp Pulse Resp BP Pulse Ox 12/13/19 05:09 86 12/13/19 04:11 74 22 H 12/13/19 03:30 97.6 F L 64 24 H 127/71 H 96 12/13/19 02:23 72 22 H 95 12/13/19 01:47 22 H 97 12/13/19 01:18 97.6 F L 63 20 H 130/85 H 91
[2019-12-13] MEDS: Haloperidol Lactate 5 MG/ML Vial 2 MG IM (05:32)
[2019-12-13] MEDS: Insulin Lispro 100 UNIT/ML INSULN.PEN SC (05:50)
[2019-12-13] MEDS: Ondansetron 4 MG/2 ML Vial IV (05:52)
[2019-12-13 07:51] LABS: Bedside Glucose 205 mg/dL (70-110)
[2019-12-13 09:41] LABS: Absolute Lymphocyte Count 0.75 X10^3/uL (0.83-4.51); Absolute Neutrophil Count 14.3 X10^3/uL (2.0-7.7); Basophil# 0.05 X10^3/uL; Basophil% 0.3 % (0-1); Hematocrit 51.9 % (40-54); Hemoglobin 16.5 g/dL (13.0-16.5); Lymphocyte # 0.75 X10^3/ul (4.0); Lymphocyte % 4.7 % (19-41); Mean Corp Hgb Conc 31.8 g/dL (32-36); Mean Corpuscular Hgb 30.7 pg (27.0-32.0); Mean Corpuscular Volume 96.6 fL (80-94); Mean Platelet Vol. 13.4 fl (6.2-12.0); Monocyte# 0.53 X10^3/uL; Monocyte% 3.3 % (0-10); NRBC Flagged by Analyzer 0 % (0-5); Neutrophil # 14.34 X10^3/uL (2.7-7.7); Neutrophil % 90.3 % (47-70); POSITIVE MORPHOLOGY YES; Platelet Count 237 K/mm3 (150-450); RBC Distribution Width CV 15.2 % (11.6-14.6); RBC Distribution Width SD 54.3 fl (35.1-43.9); Red Blood Count 5.37 M/mm3 (4.6-6.2); White Blood Count 15.9 K/mm3 (4.4-11.0)
--- NOTE | 2019-12-13 09:42 | RAD_ITS ---
STUDY: X-RAY CHEST REASON FOR EXAM: Male, 74 years old. aspiration TECHNIQUE: Single AP portable view of the chest. COMPARISON: 12/05/2019 FINDINGS: Poor inspiration with some bibasilar atelectasis. There is no demonstrated pleural abnormality. Normal size heart. Normal mediastinum and margarita. Normal visualized pulmonary arteries. Normal visualized aortic arch and descending thoracic aorta. Normal visualized thoracic spine. Normal visualized ribs, clavicles, and shoulders. There is no demonstrated abnormality of the visualized soft tissue structures of the upper abdomen. RAD/Chest 1 View (Portable) IMPRESSION: Poor inspiration with some bibasilar atelectasis. Electronically Signed: Faisal Mares MD at 11:39 EDT Tel , Service support ,
[2019-12-13 09:57] LABS: Anion Gap 9 (5-15); BUN 108 mg/dL (7-18); BUN/Creat Ratio 52.7 RATIO (10-20); Calcium,Total 8.7 mg/dL (8.5-10.1); Chloride 123 mmol/L (98-107); Creatinine, Serum 2.05 mg/dL (0.70-1.30); EST Glomerular Filtration Rate 34 mL/min (>60); Est Glom Filt Rate - Afr Amer 41 mL/min (>60); Estimated Creatinine Clearance 33.63 ml/min; Glucose 199 mg/dL (74-106); Magnesium 4.1 mg/dL (1.6-2.6); Potassium 3.9 mmol/L (3.5-5.1); Sodium Level 155 mmol/L (136-145)
[2019-12-13 10:05] LABS: Differential Indicated SCAN CRITERIA MET; Phosphorus 4.4 mg/dL (2.5-4.9)
[2019-12-13 10:10] LABS: Differential Comment SCANNED
--- NOTE | 2019-12-13 11:14 | PCM.PN.PUL ---
Patient Problems: Active and Suspected Problems (Last Updated 09/18/18 @ 00:[address] Zhang Luo MD) Acute hypoxic respiratory insufficiency (Acute) 2019 novel coronavirus disease (COVID-19) (Acute) Subjective: Overnight events were noted. Patient opens eyes to voice, but is not following commands. No emesis noted on the bed. Nasal cannula was in appropriate position. - Physical Exam Vitals/I&O's: Vital Signs Temp Pulse Resp BP Pulse Ox 36.8 C 90 20 H 111/69 84 12/13/19 09:29 12/13/19 09:29 12/13/19 09:29 12/13/19 09:29 12/13/19 09:29 Oxygen Flow Rate (L/min) 15 Oxygen Delivery Method Nasal Cannula Weight: 107.2 kg Body Mass Index (BMI) 33.0 Intake and Output for Last 24 Hours 12/11/19 12/12/19 12/13/19 23:59 23:59 23:59 Intake Total 740 / 740 1409 / 1409 500 / 500 Output Total 800 / 800 Balance -60 / -60 1409 / 1409 500 / 500 General: Confused, Disoriented, Lethargic, Non-Cooperative, - - Appears older than stated age. Obese. No accessory muscle use noted. HEENT: Atraumatic, PERRLA, EOMI, Normocephalic, - - No scleral icterus or injection noted Oral: Moist Mucosa, No Gingival or Mucosal Lesions/ Ulcerations Neck: Supple, No JVD, No Nodes, Trachea Midline Lungs: No wheeze, No rales, Diminished, Rhonchi - Right base, - - Symmetric expansion Cardiovascular: Regular rate, Regular Rhythm, Normal S1, Normal S2, No murmurs, No rub noted, No Gallop Abdomen: Bowel Sounds Present, Soft, Non Tender, Non-Distended Extremities: No clubbing, No cyanosis, Edema Skin: - - Healing appropriately Musculoskeletal: No Tenderness to Palpation of Joints or Extremities Lymphatic: No Cervical, Supraclavicular, or Inguinal Adenopathy Neurological: Neuro grossly intact - Patient not very cooperative with exam. Sensation is intact. Psych/Mental Status: Flat Affect Microbiology Past 72 Hours 12/05/19 22:46 Blood Culture (Wb) - Right Hand Blood Culture - Final No growth in 5 days. 12/05/19 22:32 Blood Culture (Wb) - Anticubital Left Blood Culture - Final No growth in 5 days. 12/07/19 18:30 Urine Catheter - [place] Urine Culture - Final Culture exhibits no growth. Laboratory Results 12/12/19 11:51: POC Glucose 233 H 12/12/19 18:11: POC Glucose 213 H 12/12/19 21:13: POC Glucose 158 H 12/13/19 01:31: POC Glucose 147 H 12/13/19 05:44: POC Glucose 205 H 12/13/19 09:00: Sodium 155 H, Potassium 3.9, Chloride 123 H, Carbon Dioxide 23.0, Anion Gap 9, BUN 108 H*, Creatinine 2.05 H, Estim Creat Clear Calc 33.63, Est GFR (MDRD) Af Amer 41 L, Est GFR (MDRD) Non-Af 34 L, BUN/Creatinine Ratio 52.7 H, Glucose 199 H, Calcium 8.7, Magnesium 4.1 H 12/13/19 09:00: Phosphorus 4.4 12/13/19 09:00: WBC 15.9 H, RBC 5.37, Hgb 16.5, Hct 51.9, MCV 96.6 H, MCH 30.7, MCHC 31.8 L, RDW Std Deviation 54.3 H, RDW Coeff of Levi 15.2 H, Plt Count 237, MPV 13.4 H, Immature Gran % (Auto) 1.400 H, Neut % (Auto) 90.3 H, Lymph % (Auto) 4.7 L, [place] % (Auto) 3.3, Eos % (Auto) 0.0, Baso % (Auto) 0.3, Absolute Neuts (auto) 14.3 H, Absolute Lymphs (auto) 0.75 L, Nucleated RBC % 0, Differential Comment SCANNED Current Medications Acetaminophen (Acetaminophen 325 Mg Tablet) 650 mg PO Q6H PRN PRN PRN Reason: Pain Score 1-10/Temp > 100.7 F Last Admin: 12/08/19 05:03 Dose: 650 mg Documented by: Albuterol Sulfate (Albuterol Ih 8.5 Gm (Proair) Inhaler (200 Puffs)) 2 puff INHALATION Q4H PRN PRN PRN Reason: Shortness of breath, wheezing Amlodipine Besylate (Amlodipine 10 Mg Tablet) 10 mg PO DAILY [facility] Last Admin: 12/13/19 09:42 Dose: Not Given Documented by: Dextrose (Dextrose 50%-Water 25 Gm/50 Ml Disp.Syrin) 0 gm IV X1 PRN; Protocol PRN Reason: Hypoglycemia Enoxaparin Sodium (Enoxaparin 30 Mg/0.3 Ml Syringe) 30 mg SC DAILY [facility] Last Admin: 12/07/19 10:31 Dose: 30 mg Documented by: Glucagon (Glucagon 1 Mg/Ml Syringe) 1 mg IM .X1 PRN PRN Reason: Hypoglycemia Hydralazine HCl (Hydralazine 20 Mg/Ml Vial) 10 mg IV Q6H PRN PRN PRN Reason: for SBP>160 Last Admin: 12/08/19 05:03 Dose: 10 mg Documented by: Sodium Chloride () 250 mls @ 15 mls/hr IV .[id number] PRN PRN Reason: Saline Flush Sodium Chloride () 250 mls @ 15 mls/hr IV .[id number] PRN PRN Reason: Additional IVPB Infusion Dextrose () 500 mls @ 60 mls/hr IV .Q8H20M [facility] Last Admin: 12/13/19 06:04 Dose: 60 mls/hr Documented by: Ampicillin Sodium/Sulbactam (Sodium 3 gm/ Sodium Chloride) 112 mls @ 150 mls/hr IV Q8 [facility] Insulin Human Lispro (Insulin Lispro 100 Unit/Ml Insuln.Pen) 0 unit SC Q4 [facility]; Protocol Last Admin: 12/13/19 05:50 Dose: 4 u Documented by: Lorazepam (Lorazepam 2 Mg/Ml Syringe) 0.5 mg IV Q4H PRN PRN PRN Reason: AGITATION Losartan Potassium (Losartan Potassium 100 Mg Tablet) 100 mg PO DAILY [facility] Last Admin: 12/13/19 09:42 Dose: Not Given Documented by: Mirtazapine (Mirtazapine 15 Mg Tablet) 15 mg PO QHS [facility] Last Admin: 12/12/19 21:11 Dose: Not Given Documented by: Ondansetron HCl (Ondansetron 4 Mg/2 Ml Vial) 4 mg IV Q8H PRN PRN PRN Reason: NAUSEA/VOMITING Last Admin: 12/13/19 05:52 Dose: 4 mg Documented by: Quetiapine Fumarate (Quetiapine 25 Mg Tablet) 50 mg PO QHS [facility] Last Admin: 12/12/19 18:13 Dose: 50 mg Documented by: Senna/Docusate Sodium (Senna/Docusate Sodium 1 Tablet) 2 tablet PO BID [facility] Last Admin: 12/13/19 09:43 Dose: Not Given Documented by: Sodium Chloride (0.9% Saline Lock 10 Ml Syringe) 10 - 40 ml IV UD PRN PRN Reason: SALINE FLUSH Last Admin: 12/11/19 07:47 Dose: 10 ml Documented by: Zolpidem Tartrate (Zolpidem Tartrate 5 Mg Tablet) 5 mg PO QHS PRN PRN PRN Reason: INSOMNIA Medical Necessity - Tobacco Use Smoking Status: Former smoker Assessment/Plan All Active Problems (Last Updated 09/18/18 @ 00:[address] Zhang Luo MD) Acute hypoxic respiratory insufficiency (Acute) 2019 novel coronavirus disease (COVID-19) (Acute) RECOMMENDATIONS: 1. Discontinue Decadron therapy 2. No current indication for remdesivir or convalescent plasma in my opinion given delay in presentation. 3. Could consider CT of the abdomen with contrast 4. Wean supplemental oxygen to maintain saturations at or above 90%. 5. Encourage incentive spirometer use and mobilize patient as tolerated. 6. Changed to DNR Comfort Care arrest without intubation IMPRESSIONS: 1. Acute hypoxemic respiratory insufficiency secondary to COVID-19 pneumonia The patient initially presented with symptoms in excess of 1 weeks duration, having tested positive on November 30. The patient is currently doing marginal from a respiratory perspective on substantial supplemental oxygen. Patient now on antibiotics secondary to probable aspiration pneumonia. Some concern the patient's mentation may be secondary to acute metabolic encephalopathy (delirium), which would be exacerbated by steroid therapy. Given the risks and benefits, will discontinue Decadron earlier. Continue to wean oxygen, but this may protracted recovery. 2. Hypertension/advanced age Complicates care, management, recovery and prognosis. Continue home medications as indicated. Abdominal x-ray was suggestive of an obstruction, but this does not correlate with physical exam. Given emesis, obtaining a CT of the abdomen may be reasonable. This will be difficult given patient's respiratory and behavioral status. Defer to hospitalist. Patient may benefit from a suppository to facilitate a bowel movement. Inpatient E&M: [id number] [facility] L3
[2019-12-13] MEDS: LORazepam 2 MG/ML Syringe 0.5 MG IV (12:18)
[2019-12-13 12:21] LABS: Bedside Glucose 186 mg/dL (70-110)
--- NOTE | 2019-12-13 12:31 | CASEMGMT ---
SW spoke w/daughter Aleta on the phone, offered support. Daughter states that she and pt's son are coming in shortly for a family meeting to discuss the plan for pt. Daughter states pt's brother is about to go to hospice and she thinks her dad is going on hospice also. Pt's just last year. Daughter spoke about pt and spending time with him, having meals with him, his mowing her lawn since his passed. Daughter states that they are close. SW offered supportive listening to daughter. SW remains available for support to daughter as needed. RAUL Enriquez
--- NOTE | 2019-12-13 15:19 | CASEMGMT ---
RN called hospice and made referral, SW faxed clinical information. RAUL Enriquez
--- NOTE | 2019-12-13 15:54 | NURSING ---
Spoke with TI Sahu from Hospice. Updated her on patient condition.
--- NOTE | 2019-12-13 16:54 | NURSING ---
Called report to TI Suh at Hospice
--- NOTE | 2019-12-13 17:13 | PCM.DC.SUM ---
Discharge Date and Diagnosis - Problem List Patient Problems: Active and Suspected Problems (Last Updated 09/18/18 @ 00:[address] Zhang Luo MD) Acute hypoxic respiratory insufficiency (Acute) 2019 novel coronavirus disease (COVID-19) (Acute) Date of Admission: 12/06/19 Date of Discharge: 12/13/19 - Primary Discharge Diagnosis Acute Problems: Active Problems (Last Updated 09/18/18 @ 00:[address] Zhang Luo MD) Acute hypoxic respiratory insufficiency (Acute) 2019 novel coronavirus disease (COVID-19) (Acute) - Secondary Discharge Diagnosis Chronic Problems: Chronic Problems (Last Updated 09/18/18 @ 00:[address] Zhang Luo MD) Stage III chronic kidney disease (Chronic) Hypertension (Chronic) Hospital Course and Treatment Imaging Results: Clinical Impression(s) from Imaging Studies Chest X-Ray 12/05/19 22:44 IMPRESSION: Mild bilateral atelectasis versus infiltrates. at 0005 Reported and signed by: Suzette Estrada MD Electronically Signed: Suzette Estrada MD at 0:05 EDT Tel , Service support , Brain CT 12/07/19 11:48 IMPRESSION: Chronic involutional changes of the brain. Electronically Signed: Faisal Mares MD at 13:05 EDT Tel , Service support , Brain CT 12/09/19 13:50 IMPRESSION: Chronic involutional changes without evidence of acute intracranial or calvarial abnormality. There is no interval change. Electronically Signed: Olegario Figueroa DO at 16:02 EDT Tel [phone], Service support , Abdomen X-Ray 12/09/19 14:45 IMPRESSION: 1. Findings most suggestive of a distal colonic obstruction or mass with sigmoid dilatation. This does not have the appearance of a sigmoid volvulus, although volvulus cannot be completely ruled out. 2. Bilateral pulmonary infiltrates, as above. Electronically Signed: Olegario CarolinaDO at 18:14 EDT Tel [phone], Service support , Chest X-Ray 12/13/19 09:42 IMPRESSION: Poor inspiration with some bibasilar atelectasis. Electronically Signed: Faisal Mares MD at 11:39 EDT Tel , Service support , Consults: ID ICU Operations: None Procedures: None Summary of Care Provided: Per HPI: The patient is a 74 year old M with past medical history as mentioned above presented to the emergency room because of shortness of breath. Patient was diagnosed with COVID-19 5 days ago and he has been doing okay until yesterday morning when he started having increasing shortness of breath, but is with minimal activity, aggravated by any type of activity, associated with mild dry cough as well as subjective fever and no relieving factor. Squad mentioned that his pulse ox was 88 to 89% on room air upon arrival to his house. He denies fever or chills. He had COVID-19 done at urgent care 5 days ago which came back positive. Patient lives alone and he denied recent travel or sick contacts. He denied chest pain, palpitation, dizziness or lightheadedness. In the emergency department, he had spike of low-grade fever, blood pressure was slight elevated but improved, he required oxygen of up to 4 L. His routine blood work was remarkable for BUN of 23, creatinine 1.47. LFT was unremarkable. Troponin was negative. EKG revealed normal sinus rhythm without evidence of acute segment changes or cardiac arrhythmias. Chest x-ray revealed no obvious infiltrate, possible atelectasis. He is being admitted for COVID-19 and acute hypoxic respiratory insufficiency. Hospital Course: 1. Acute hypoxic respiratory insufficiency secondary to COVID-19 pneumonia/metabolic encephalopathy/THERESE on CKD 3/hypernatremia -Delirium likely secondary to the Decadron and his disease process -Continue with Decadron, have discussed the case thoroughly with the family -Continue with BiPAP with his restraints, hopefully if he continues doing well with the twice daily dosing of the Seroquel could potentially take off the restraints -We will continue with Seroquel 25 mg p.o. twice daily -Family agrees that there is probably mild dementia at baseline -A 20-minute discussion with advanced care planning with the family on 12/11/2019 and they agreed that he would not do well with intubation would like him to be changed from a DNR CCA with intubation to a DNR/DNI. He has had difficulty keeping his BiPAP on and he is even started taking off his high flow nasal cannula as well. -No benefit from remdesivir at this point, or convalescent plasma -BUN is elevated to 108, and his sodium has risen to 155. He was added D5W yesterday and will continue with that today at 60 cc/h. We will add a sliding scale insulin to manage his elevated blood sugar. Baseline creatinine is around 1.3 and he is currently 2.05 -I met with the family today, we had meeting for about an hour to discuss advance care planning they were able to see their dad today and they felt that he would benefit from hospice. They felt that given his condition the likelihood of any meaningful recovery was low which I do agree with. I discussed with him that he had an aspiration event today and was started on Unasyn to help decrease the risk of aspiration pneumonia and they felt that this just made his long-term prognosis even worse which I also agree with. This was discussed with the car dropper who also felt that hospice was reasonable. I discussed with him the plan to discharge him to hospice today hopefully inpatient and I am hopeful that he will be able to get a room next to his brothers room so that way family can be around both siblings. 2. Constipation versus volvulus -There is some concern about having a volvulus based on abdominal x-ray however secondary to Covid could not obtain a barium enema and because of his delirium he would not drink contrast for CT scan -Based on physical exam, his abdomen is nontender nondistended, he is afebrile therefore we will provide him with a stool softener and see if this is constipation. 3. HTN -Blood pressures are stable -Continue with his home blood pressure medications Patient Problems: Active and Suspected Problems (Last Updated 09/18/18 @ 00:[address] Zhang Luo MD) Acute hypoxic respiratory insufficiency (Acute) 2019 novel coronavirus disease (COVID-19) (Acute) - Physical Exam Vitals/I&O's: Vital Signs Temp Pulse Resp BP Pulse Ox 97.8 F 90 22 H 89/73 L 78 12/13/19 15:03 12/13/19 15:03 12/13/19 15:03 12/13/19 15:03 12/13/19 15:03 Oxygen Flow Rate (L/min) 15 Oxygen Delivery Method Nasal Cannula Weight: 236 lb 5.369 oz Body Mass Index (BMI) 33.0 Intake and Output for Last 24 Hours 12/11/19 12/12/19 12/13/19 23:59 23:59 23:59 Intake Total 740 / 740 1409 / 1409 975 / 975 Output Total 800 / 800 Balance -60 / -60 1409 / 1409 975 / 975 General: No apparent distress, Confused, Disoriented, Non-Cooperative HEENT: Atraumatic, PERRLA, EOMI, Normocephalic Oral: Moist Mucosa Neck: Supple, No JVD Lungs: Normal air movement, No rhonchi, No wheeze, No rales, Diminished Cardiovascular: Regular rate, Regular Rhythm, Normal S1, Normal S2, No murmurs Abdomen: Soft, Non Tender, Non-Distended, No Hepato-splenomegaly Extremities: No edema, Capillary Refill Less than 3 Seconds Skin: No rashes, No breakdown Neurological: Neuro grossly intact, Sensory exam intact to light touch and pain Psych/Mental Status: Flat affect Microbiology Past 72 Hours 12/05/19 22:46 Blood Culture (Wb) - Right Hand Blood Culture - Final No growth in 5 days. 12/05/19 22:32 Blood Culture (Wb) - Anticubital Left Blood Culture - Final No growth in 5 days. Laboratory Results 12/12/19 18:11: POC Glucose 213 H 12/12/19 21:13: POC Glucose 158 H 12/13/19 01:31: POC Glucose 147 H 12/13/19 05:44: POC Glucose 205 H 12/13/19 09:00: Sodium 155 H, Potassium 3.9, Chloride 123 H, Carbon Dioxide 23.0, Anion Gap 9, BUN 108 H*, Creatinine 2.05 H, Estim Creat Clear Calc 33.63, Est GFR (MDRD) Af Amer 41 L, Est GFR (MDRD) Non-Af 34 L, BUN/Creatinine Ratio 52.7 H, Glucose 199 H, Calcium 8.7, Magnesium 4.1 H 12/13/19 09:00: Phosphorus 4.4 12/13/19 09:00: WBC 15.9 H, RBC 5.37, Hgb 16.5, Hct 51.9, MCV 96.6 H, MCH 30.7, MCHC 31.8 L, RDW Std Deviation 54.3 H, RDW Coeff of Levi 15.2 H, Plt Count 237, MPV 13.4 H, Immature Gran % (Auto) 1.400 H, Neut % (Auto) 90.3 H, Lymph % (Auto) 4.7 L, [place] % (Auto) 3.3, Eos % (Auto) 0.0, Baso % (Auto) 0.3, Absolute Neuts (auto) 14.3 H, Absolute Lymphs (auto) 0.75 L, Nucleated RBC % 0, Differential Comment SCANNED 12/13/19 11:46: POC Glucose 186 H Current Medications Acetaminophen (Acetaminophen 325 Mg Tablet) 650 mg PO Q6H PRN PRN PRN Reason: Pain Score 1-10/Temp > 100.7 F Last Admin: 12/08/19 05:03 Dose: 650 mg Documented by: Albuterol Sulfate (Albuterol Ih 8.5 Gm (Proair) Inhaler (200 Puffs)) 2 puff INHALATION Q4H PRN PRN PRN Reason: Shortness of breath, wheezing Amlodipine Besylate (Amlodipine 10 Mg Tablet) 10 mg PO DAILY [facility] Last Admin: 12/13/19 09:42 Dose: Not Given Documented by: Dextrose (Dextrose 50%-Water 25 Gm/50 Ml Disp.Syrin) 0 gm IV X1 PRN; Protocol PRN Reason: Hypoglycemia Enoxaparin Sodium (Enoxaparin 30 Mg/0.3 Ml Syringe) 30 mg SC DAILY [facility] Last Admin: 12/07/19 10:31 Dose: 30 mg Documented by: Glucagon (Glucagon 1 Mg/Ml Syringe) 1 mg IM .X1 PRN PRN Reason: Hypoglycemia Hydralazine HCl (Hydralazine 20 Mg/Ml Vial) 10 mg IV Q6H PRN PRN PRN Reason: for SBP>160 Last Admin: 12/08/19 05:03 Dose: 10 mg Documented by: Sodium Chloride () 250 mls @ 15 mls/hr IV .[id number] PRN PRN Reason: Saline Flush Sodium Chloride () 250 mls @ 15 mls/hr IV .[id number] PRN PRN Reason: Additional IVPB Infusion Dextrose () 500 mls @ 60 mls/hr IV .[id number] RAQUEL Last Infusion: 12/13/19 15:11 Dose: 60 mls/hr Documented by: Ampicillin Sodium/Sulbactam (Sodium 3 gm/ Sodium Chloride) 112 mls @ 150 mls/hr IV Q8 RAQUEL Last Admin: 12/13/19 15:10 Dose: Not Given Documented by: Insulin Human Lispro (Insulin Lispro 100 Unit/Ml Insuln.Pen) 0 unit SC Q4 RAQUEL; Protocol Last Admin: 12/13/19 12:18 Dose: Not Given Documented by: Lorazepam (Lorazepam 2 Mg/Ml Syringe) 0.5 mg IV Q4H PRN PRN PRN Reason: AGITATION Last Admin: 12/13/19 12:18 Dose: 0.5 mg Documented by: Losartan Potassium (Losartan Potassium 100 Mg Tablet) 100 mg PO DAILY [facility] Last Admin: 12/13/19 09:42 Dose: Not Given Documented by: Mirtazapine (Mirtazapine 15 Mg Tablet) 15 mg PO QHS [facility] Last Admin: 12/12/19 21:11 Dose: Not Given Documented by: Ondansetron HCl (Ondansetron 4 Mg/2 Ml Vial) 4 mg IV Q8H PRN PRN PRN Reason: NAUSEA/VOMITING Last Admin: 12/13/19 05:52 Dose: 4 mg Documented by: Quetiapine Fumarate (Quetiapine 25 Mg Tablet) 50 mg PO QHS [facility] Last Admin: 12/12/19 18:13 Dose: 50 mg Documented by: Senna/Docusate Sodium (Senna/Docusate Sodium 1 Tablet) 2 tablet PO BID [facility] Last Admin: 12/13/19 09:43 Dose: Not Given Documented by: Sodium Chloride (0.9% Saline Lock 10 Ml Syringe) 10 - 40 ml IV UD PRN PRN Reason: SALINE FLUSH Last Admin: 12/11/19 07:47 Dose: 10 ml Documented by: Zolpidem Tartrate (Zolpidem Tartrate 5 Mg Tablet) 5 mg PO QHS PRN PRN PRN Reason: INSOMNIA Home Medications: Medications to take at Discharge Losartan Potassium 100 mg PO DAILY 09/17/18 Amlodipine [Norvasc] 10 mg PO DAILY 12/06/19 Primary Care Physician: Care Physician,No Primary [NON-STAFF] - Disposition: Hospice Medical Facility Minutes spent on discharge:: 35 Patient Condition:: Poor Medical Necessity - Tobacco Use Smoking Status: Former smoker Meaningful Use Info Meaningful Use Diagnoses (Choose all that apply): None applicable Inpatient E&M: 48714 Disch Hosp Procedures: 31724 Advncd Care Plan 30 Min
--- NOTE | 2019-12-13 18:45 | NURSING ---
Son Marino notified of transport time of 1929 to inpatient hospice. Denies any further questions or needs at this time.
== END 2019-12-13 19:40 | disposition hospice, inpatient (51) | DRG 177 ==
LOC: ED 12-06 → MS2 12-06 02:28
PROVIDERS: Internal Medicine Critical Care Medicine; Student in an Organized Health Care Education/Training Program; Admitting Provider Hospitalist; Emergency Provider Emergency Medicine; Visit Provider Family Medicine
DX: U07.1 COVID-19 (principal); J12.89 Other viral pneumonia; G93.41 Metabolic encephalopathy; N17.9 Acute kidney failure, unspecified; R09.02 Hypoxemia; R06.89 Other abnormalities of breathing; Z87.891 Personal history of nicotine dependence; S00.81XA Abrasion of other part of head, initial encounter; W18.30XA Fall on same level, unspecified, initial encounter; Y93.89 Activity, other specified; Y92.009 Unspecified place in unspecified non-institutional (private) residence as the place of occurrence of the external cause; Y99.8 Other external cause status; I12.9 Hypertensive chronic kidney disease with stage 1 through stage 4 chronic kidney disease, or unspecified chronic kidney disease; N18.30 Chronic kidney disease, stage 3 unspecified; Z79.899 Other long term (current) drug therapy; R53.81 Other malaise; T38.0X5A Adverse effect of glucocorticoids and synthetic analogues, initial encounter; Z66 Do not resuscitate; K59.00 Constipation, unspecified
CPT/HCPCS: 36415; 36600; 70450; 71045; 74019; 80048; 80053; 81002; 82550; 82607; 82746; 82803; 82962; 83605; 83615; 83735; 83880; 84100; 84145; 84443; 84484; 85025; 85379; 85384; 85610; 86140; 87040; 87086; 93005; 94003; 94660; 97110; 97116; 97162; 97165; 97530; 97535; 97802; 99285; J7030; A4216; J0295; J2405; J3486